=== PATIENT | female | born 1960 | race Caucasian/White ===

== ENCOUNTER 2022-08-22 10:05 | Inpatient (IN) | payer MEDICARE, MEDICAID, SELFPAY ==
--- NOTE | 2022-08-22 | ECG_ITS ---
Test Reason : MEDICAL CLEARANCE Blood Pressure : / mmHG Vent. Rate : 068 BPM Atrial Rate : 068 BPM P-R Int : 120 ms QRS Dur : 072 ms QT Int : 424 ms P-R-T Axes : 066 067 071 degrees QTc Int : 450 ms Normal sinus rhythm Normal ECG No previous ECGs available Referred By: Regina Beasley Electronically Signed By:ESTEBAN HAYES
[2022-08-22 10:11] VITALS: BP 138/86; PULSE 82; O2SAT 98
--- NOTE | 2022-08-22 10:23 | MHC.CARE ---
Pt was seen by Magalys Green in the community and is a bedsearch.
[2022-08-22 10:27] VITALS: BP 114/61; PULSE 80; RESP 17; TEMP 36.1; O2SAT 95; BMI 23.9
[2022-08-22 10:44] VITALS: BP 114/61; PULSE 80; RESP 17; TEMP 36.1; O2SAT 95
[2022-08-22 11:26] LABS: MANUAL DIFF FLAG NO
[2022-08-22 11:29] LABS: Basophils Absolute Auto 0.1 X10*3/uL (0.0-0.2); Basophils Percent Auto 0.8 % (0-2); Eosinophils Absolute Auto 0.1 X10*3/uL (0.0-0.4); Hemoglobin 13.5 g/dl (12.0-16.0); Imm Gran Abs Auto 0.03 X10*3/uL (0.00-0.03); Imm Gran Pct Auto 0.4 % (0.0-0.4); Lymphocytes Absolute Auto 2.3 X10*3/uL (1.2-4.9); Lymphocytes Percent Auto 27.9 % (20-40); Mean Corpuscular HGB Conc 33.8 g/dl (31.0-35.0); Mean Corpuscular Hemoglobin 30.5 pg (27.0-33.0); Mean Corpuscular Volume 90.3 fL (80.0-98.0); Mean Platelet Volume 11.2 fL (9.4-12.3); Monocytes Absolute Auto 0.7 X10*3/uL (0.1-1.2); Monocytes Percent Auto 7.9 % (2-11); Neutrophils Absolute Auto 5.2 x10*3/uL (2.0-8.3); Platelet Count 223 X10*3/uL (160-400); Red Blood Count 4.43 X10*6/uL (4.20-5.50); Red Cell Distribution Width 15.1 % (11.0-16.0); White Blood Count 8.4 X10*3/uL (4.8-10.8)
--- NOTE | 2022-08-22 11:45 | ED.PSYCH ---
HPI - Psych General Chief Complaint: Psychiatric Symptoms Stated Complaint: SI Time Seen by Provider: 08/22/22 10:51 Source: patient and EMS Mode of arrival: EMS Limitations: no limitations History of Present Illness HPI Narrative: 61 y/o female with history of multiple sclerosis and major depression presents to the ER via EMS from a homeless longterm with suicidal ideation. She reports recently she has been feeling suicidal because of her life. She is homeless with family in [place] who wants nothing to do with her. She has been off of psych meds and MS meds for a long while now because she ran out. She denies any current illicit drug use and admits to ETOH abuse intermittently. She denies hx withdrawal becuase she doesn't drink enough for that. She plans to overdose on pills even though she has a difficult time swallowing them at baseline. MD complaint: suicidal ideation and feels depressed Onset (ago): unknown Duration: intermittent and changing over time History of same: Yes Relieving factors: none Exacerbating factors: none Context: not taking psychiatric medications Associated psychiatric symptoms: depression and suicidal ideation Associated symptoms: denies other symptoms Treatments prior to arrival: placed on mental health hold If self harm: admits thoughts of self harm and has plan Details of plan: OD on pills Related Data Home Medications Medication Instructions Recorded Confirmed albuterol sulfate 90 mcg/actuation 2 puff inhalation Q6H PRN 08/22/22 08/22/22 aerosol inhaler Shortness Of Breath fluticasone propionate 230 2 puff inhalation BID 08/22/22 08/22/22 mcg-salmeterol 21 mcg/actuation HFA inhaler (Advair HFA) lamotrigine 200 mg tablet 1 tab PO BID 08/22/22 08/22/22 naproxen 500 mg tablet 1 tab PO Q12H PRN Pain (Scale 08/22/22 08/22/22 Score 1-3) omeprazole 20 mg capsule,delayed 1 cap PO DAILY@0630 08/22/22 08/22/22 release paroxetine HCl 40 mg tablet 1 tab PO DAILY 08/22/22 08/22/22 trazodone 150 mg tablet 1 tab PO DAILY 08/22/22 08/22/22 Allergies Allergy/AdvReac Type Severity Reaction Status Date / Time Unable to Assess Allergy Unverified 08/22/22 10:54 Review of Systems Review of Systems: Constitutional: No Fever, No Chills ENT/Mouth: No sore throat, No Rhinorrhea Cardiovascular: No Chest Pain, No SOB, No Orthopnea, No Edema Respiratory: No Cough, No Sputum, No Wheezing, No dyspnea Gastrointestinal: No Nausea, No Vomiting, No Diarrhea, No abdominal Pain Genitourinary: No Dysuria, No Urinary Frequency, No Hematuria Musculoskeletal: No joint pain, No Myalgias Skin: No Skin Lesions, No rash Neuro: No Weakness, No Numbness, No Dizziness, No Headache Psych: No Anxiety/Panic, + Depression, +SI, No HI, No AH, No VH Heme/Lymph: No Bruising, No Lymphadenopathy PMFSH Social History Social History Alcohol intake: current Alcohol intake frequency: 3 or more drinks per day Patient Tobacco Use Status: Current everyday Tobacco user Smoked in Last 30 Days: Yes Use of substances other than those prescribed or required for medical reasons: Yes Substance Use Type: Crack/Cocaine Substance Use Frequency: Daily Advance Directives: No Advance Directives Information Provided: No Patient : No Physical Exam Vital Signs: Vital Signs: Last Vital Signs Temp 97.0 F 08/22/22 10:44 Pulse 80 08/22/22 10:44 Resp 17 08/22/22 10:44 BP 114/61 08/22/22 10:44 Pulse Ox 95 08/22/22 10:44 O2 Del Method 08/22/22 10:44 BMI result Body Mass Index 23.9 Appearance: Alert. Oriented X3. No acute distress. Eyes: Pupils equal, round and reactive to light. ENT: Pharynx normal. Neck: Normal inspection. Neck supple. CVS: Normal heart rate and rhythm. Pulses normal. Respiratory: No respiratory distress. Breath sounds normal. Abdomen: Soft and nontender. +BS x4 Skin: Skin warm and dry. Normal skin color. Normal skin turgor. No rashes. Extremities: No lower extremity edema. Neuro/psych: Oriented X 3. No motor deficit. No sensory deficit. CN II -XII intact. Flat affect, depressed, suicidal. short responses in interview, guarded Course Course Course Narrative: 61 yo female presenting with worsening depression and suicidal ideation in the setting of medication noncompliance, homelessness and life stressors. She presents on a section 12 as an inpatient bedsearch from the community. Will get medical clearance and then plan to initiate bed search. Reevaluation(s) Reevaluation #1: Medical workup unremarkable. Medically cleared for admission. has a bed on M5. Will admit [facility] - Psych Medical Records Attestation: I reviewed the patient's medical records. Lab Data Attestation: I reviewed the patient's lab results. Result diagrams: 08/22/22 11:18 08/22/22 11:18 Labs: Lab Results 08/22/22 08/22/22 08/22/22 Range/Units 11:18 11:18 11:18 WBC 8.4 (4.8-10.8) X10*3/uL RBC 4.43 (4.20-5.50) X10*6/uL Hgb 13.5 (12.0-16.0) g/dl Hct 40.0 (37.0-47.0) % MCV 90.3 (80.0-98.0) fL MCH 30.5 (27.0-33.0) pg MCHC 33.8 (31.0-35.0) g/dl RDW 15.1 (11.0-16.0) % Plt Count 223 (160-400) X10*3/uL MPV 11.2 (9.4-12.3) fL Immature Gran % (Auto) 0.4 (0.0-0.4) % Neut % (Auto) 62.0 (45-73) % Lymph % (Auto) 27.9 (20-40) % Price % (Auto) 7.9 (2-11) % Eos % (Auto) 1.0 (0-4) % Baso % (Auto) 0.8 (0-2) % Lymph # (Auto) 2.3 (1.2-4.9) X10*3/uL Price # (Auto) 0.7 (0.1-1.2) X10*3/uL Eos # (Auto) 0.1 (0.0-0.4) X10*3/uL Baso # (Auto) 0.1 (0.0-0.2) X10*3/uL Abs Immat Gran (auto) 0.03 (0.00-0.03) X10*3/uL Absolute Neuts (auto) 5.2 (2.0-8.3) x10*3/uL Absolute Nucleated RBC 0.000 (0.0-0.012) X10*3/uL Nucleated RBC % (auto) 0.0 (0.0-0.2) /100WBC Sodium 143 (135-145) mmol/L Potassium 3.5 (3.3-5.1) mmol/L Chloride 111 H (96-108) mmol/L Carbon Dioxide 22 (22-29) mmol/L Anion Gap 14 (12-20) BUN 15 (9-16) mg/dL Creatinine 0.78 (0.5-1.4) mg/dL Estim Creat Clear Calc 64.2 Estimated GFR > 60 Random Glucose 90 (60-115) mg/dL Calcium 9.1 (8.4-10.2) mg/dL Magnesium 2.3 (1.6-2.6) mg/dL Total Bilirubin 0.2 (0.0-1.0) mg/dL Direct Bilirubin < 0.2 (0.0-0.5) mg/dL AST 22 (5-31) U/L ALT 19 (0-31) U/L Alkaline Phosphatase 86 (39-117) U/L Total Protein 5.9 L (6.5-8.0) g/dL Albumin 3.8 (3.5-5.0) g/dL Ethyl Alcohol < 10 mg/dL COVID-19 (MARII) Negative (Negative) COVID-19 Clin Com See Note ECG Data Attestation: I personally reviewed and interpreted this ECG as follows: ECG interpretation date: 08/22/22 ECG interpretation time: 14:38 Interpretation: normal sinus rhythm, HR 68 bpm, LA interval 120 ms, no st segment elevations or depressions. Discharge Plan Discharge Clinical Impression: Suicidal ideation Patient Disposition: Admitted As Inpatient
[2022-08-22 11:50] LABS: COVID-19 Test Negative (Negative); IDNOW Serial# 16C4AD1C
[2022-08-22 12:02] LABS: Alanine Aminotransferase 19 U/L (0-31); Albumin Level 3.8 g/dL (3.5-5.0); Alkaline Phosphatase 86 U/L (39-117); Anion Gap 14 (12-20); Aspartate Amino Transferase 22 U/L (5-31); Bilirubin Direct < 0.2 mg/dL (0.0-0.5); Bilirubin Total 0.2 mg/dL (0.0-1.0); Blood Urea Nitrogen 15 mg/dL (9-16); Calcium 9.1 mg/dL (8.4-10.2); Carbon Dioxide 22 mmol/L (22-29); Chloride 111 mmol/L (96-108); Creatinine Clr Calc Pharmacy 64.2; Estimated Glomerular Filt Rate > 60; Ethanol < 10 mg/dL; Glucose Random 90 mg/dL (60-115); Magnesium 2.3 mg/dL (1.6-2.6); Potassium 3.5 mmol/L (3.3-5.1); Sodium 143 mmol/L (135-145); Total Protein 5.9 g/dL (6.5-8.0)
--- NOTE | 2022-08-22 14:26 | PHA.MEDREC ---
Pharmacy Consult ? Medication Reconciliation Pharmacy has completed the medication reconciliation. Spoke with patient in the [facility]. Patient states she ran out of her medication and she is unsure when she last took them.
[2022-08-22 14:42] LABS: Appearance Urine Clear; Color Urine Yellow; Glucose Urine UA Negative (Negative); Leukocyte Esterase Urine Trace (Negative); Nitrite Urine Negative (Negative); Specific Gravity - Urine 1.015 (1.005-1.025); UMIC TRIGGER UACC YES; Urine Blood Negative (Negative); Urine Ketones Negative (Negative); Urine Protein Negative (Neg-Trace)
[2022-08-22 14:52] LABS: Bacteria Urine Trace (None Seen); Hyaline Casts Urine 0-2 /LPF (0-2); WBC Urine 0-5 /HPF (0-5)
[2022-08-22 14:54] LABS: Amphetamine Screen Urine POSITIVE (Not Detect); Barbiturates, Urine Not Detected (Not Detect); Benzodiazepines Screen Urine Not Detected (Not Detect); Cannabinoid Screen Urine POSITIVE (Not Detect); Cocaine Screen Urine POSITIVE (Not Detect); Fentanyl, urine Not Detected (Not Detect); Opiate Screen Urine Not Detected (Not Detect); Phencyclidine Screen Urine Not Detected (Not Detect)
--- NOTE | 2022-08-22 18:25 | PC.ADMIT ---
Pt is a 61 year old female who presents to from [facility] at approx 1600 on a cv status. Pt is covid - tox screen + for cocaine, THC, and amphetamines. EKG was normal sinus. Per chart review, pt has family hx of multiple sclerosis and major depression presents to the ER via EMS from a homeless [facility] with suicidal ideation. Pt was assessed by [facility] in the community. She reports recently she has been feeling suicidal because of her life. She is homeless with family in [place] who wants nothing to do with her. She has been off of psych meds and MS meds for a long while now because she ran out. She denies any current illict drug use and admits to ETOH abuse intermittently. She denies hx withdrawal because she doesn't drink enough. She plans to overdose on pills even though she has a difficult time swallowing them at baseline. During the admit, pt denied being in any withdraw. Pt denied all psych symptoms. Pt signed consent and legal forms. Pt ate dinner and has been in bed most of the shift. Pt reported that she is homeless. Provider notified and contacted for admission orders. Start safety plan and monitor for safety.
[2022-08-22] MEDS: lamoTRIgine 100 MG TABLET 200 MG PO (21:27)
[2022-08-22 21:32] VITALS: BP 138/68; PULSE 73
[2022-08-22] MEDS: NaPROXEN 500 MG TABLET PO (21:36)
[2022-08-23 06:00] VITALS: BP 128/71; PULSE 69; RESP 18; TEMP 36.9; O2SAT 98
[2022-08-23 07:41] LABS: Estimated Average Glucose 105 mg/dL; Hemoglobin A1c % 5.3 %
[2022-08-23 07:56] LABS: Alanine Aminotransferase 17 U/L (0-31); Albumin Level 3.6 g/dL (3.5-5.0); Alkaline Phosphatase 82 U/L (39-117); Aspartate Amino Transferase 19 U/L (5-31); Bilirubin Total 0.3 mg/dL (0.0-1.0); Blood Urea Nitrogen 26 mg/dL (9-16); Calcium 8.7 mg/dL (8.4-10.2); Cholesterol 170 mg/dL; Creatinine Clr Calc Pharmacy 63.4; Estimated Glomerular Filt Rate > 60; Glucose Fasting 107 mg/dL (60-99); HDL Cholesterol 74 mg/dL; LDL Cholesterol Calculated 85 mg/dl; Magnesium 2.2 mg/dL (1.6-2.6); Total Protein 5.6 g/dL (6.5-8.0); Triglycerides 55 mg/dL
[2022-08-23 08:06] LABS: Anion Gap 15 (12-20); Carbon Dioxide 22 mmol/L (22-29); Chloride 110 mmol/L (96-108); Potassium 4.5 mmol/L (3.3-5.1); Sodium 142 mmol/L (135-145)
[2022-08-23 08:08] LABS: Free T4 (Free Thyroxine) 0.88 ng/dL (0.71-1.85)
[2022-08-23] MEDS: Omeprazole 20 MG CAPSULE.DR PO (08:36)
[2022-08-23] MEDS: PARoxetine HCL 40 MG TABLET PO (08:36)
[2022-08-23] MEDS: lamoTRIgine 100 MG TABLET 200 MG PO ×2 (08:36→20:15)
[2022-08-23] MEDS: NaPROXEN 500 MG TABLET PO (09:16)
[2022-08-23 09:38] LABS: Folate 7.6 ng/mL (> or = 4.0); Vitamin B12 329 pg/mL (200-900)
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
--- NOTE | 2022-08-23 16:21 | HO.PSYCHPN ---
Subjective Subjective Date of Service: 08/23/22 Reason For Visit: depression w/ si Subjective Notes: Conditional Voluntary Interim History: Pt in bed, declines to meet, sleeping, not engaged today in milieu or her plan. I will see you when I am ready. Review of Systems Acute medical concerns: No Medical Review of Systems: unchanged Mental Status Exam Mental Status Exam Narrative: Pt is asleep, MSE based on GEOFF du Patient Appearance: Unkempt Patient Orientation: Person, Place and Time Level of Consciousness: Sedated Patient Behavior: Appropriate and Guarded Mood Description: Depressed Affect Description: Anxious Ability to Follow Directions: Good Speech Pattern: Clear Memory Description: Intact Hallucinations: None Delusions: Not Present Thought Process: Distracted Thought Content: positive for [place] Depressive Symptoms: Increased Anxiety, Difficulty Sleeping, Feelings of Worthlessness, Thoughts of /Suicide, Low Self Esteem and Difficulty Concentrating Judgement: Fair Diagnostics Vital Signs (24Hr): Vital Signs - 24 hr 08/22/22 21:32 08/23/22 06:00 Temperature 98.5 F Pulse Rate 73 69 Respiratory Rate 18 Blood Pressure 138/68 128/71 Pulse Oximetry 98 Oxygen Delivery Method Room Air BMI result Body Mass Index 23.9 Labs Results: 08/22/22 11:18 08/23/22 07:18 Labs: Laboratory Results - last 48 hr 08/22/22 08/22/22 08/22/22 11:18 11:18 11:18 WBC 8.4 RBC 4.43 Hgb 13.5 Hct 40.0 MCV 90.3 MCH 30.5 MCHC 33.8 RDW 15.1 Plt Count 223 MPV 11.2 Immature Gran % (Auto) 0.4 Neut % (Auto) 62.0 Lymph % (Auto) 27.9 [place] % (Auto) 7.9 Eos % (Auto) 1.0 Baso % (Auto) 0.8 Lymph # (Auto) 2.3 [place] # (Auto) 0.7 Eos # (Auto) 0.1 Baso # (Auto) 0.1 Abs Immat Gran (auto) 0.03 Absolute Neuts (auto) 5.2 Absolute Nucleated RBC 0.000 Nucleated RBC % (auto) 0.0 Sodium 143 Potassium 3.5 Chloride 111 H Carbon Dioxide 22 Anion Gap 14 BUN 15 Creatinine 0.78 Estim Creat Clear Calc 64.2 Estimated GFR > 60 Random Glucose 90 Fasting Glucose Estimat Average Glucose Hemoglobin A1c % Calcium 9.1 Magnesium 2.3 Total Bilirubin 0.2 Direct Bilirubin < 0.2 AST 22 ALT 19 Alkaline Phosphatase 86 Total Protein 5.9 L Albumin 3.8 Triglycerides Cholesterol LDL Cholesterol, Calc HDL Cholesterol Vitamin B12 Folate TSH Free T4 Urine Color Urine Appearance Urine pH Ur Specific [place] Urine Protein Urine Glucose (UA) Urine Ketones Urine Blood Urine Nitrite Ur Leukocyte Esterase Urine RBC Urine WBC Ur Squamous Epith Cells Urine Bacteria Hyaline Casts Urine Opiates Screen Urine Fentanyl Screen Ur Barbiturates Screen Ur Phencyclidine Scrn Ur Amphetamines Screen U Benzodiazepines Scrn Urine Cocaine Screen U Marijuana (THC) Screen Ethyl Alcohol < 10 COVID-19 (MARII) Negative COVID-19 Clin Com See Note 08/22/22 08/22/22 08/23/22 14:31 14:31 07:18 WBC RBC Hgb Hct MCV MCH MCHC RDW Plt Count MPV Immature Gran % (Auto) Neut % (Auto) Lymph % (Auto) [place] % (Auto) Eos % (Auto) Baso % (Auto) Lymph # (Auto) [place] # (Auto) Eos # (Auto) Baso # (Auto) Abs Immat Gran (auto) Absolute Neuts (auto) Absolute Nucleated RBC Nucleated RBC % (auto) Sodium 142 Potassium 4.5 D Chloride 110 H Carbon Dioxide 22 Anion Gap 15 BUN 26 H D Creatinine 0.79 Estim Creat Clear Calc 63.4 Estimated GFR > 60 Random Glucose Fasting Glucose 107 H Estimat Average Glucose Hemoglobin A1c % Calcium 8.7 Magnesium 2.2 Total Bilirubin 0.3 Direct Bilirubin AST 19 ALT 17 Alkaline Phosphatase 82 Total Protein 5.6 L Albumin 3.6 Triglycerides 55 Cholesterol 170 LDL Cholesterol, Calc 85 HDL Cholesterol 74 Vitamin B12 Folate TSH 1.40 Free T4 0.88 Urine Color Yellow Urine Appearance Clear Urine pH 6.0 Ur Specific [place] 1.015 Urine Protein Negative Urine Glucose (UA) Negative Urine Ketones Negative Urine Blood Negative Urine Nitrite Negative Ur Leukocyte Esterase Trace H Urine RBC 11-20 H Urine WBC 0-5 Ur Squamous Epith Cells 11-20 Urine Bacteria Trace Hyaline Casts 0-2 Urine Opiates Screen Not Detected Urine Fentanyl Screen Not Detected Ur Barbiturates Screen Not Detected Ur Phencyclidine Scrn Not Detected Ur Amphetamines Screen POSITIVE H U Benzodiazepines Scrn Not Detected Urine Cocaine Screen POSITIVE H U Marijuana (THC) Screen POSITIVE H Ethyl Alcohol COVID-19 (MARII) COVID-19 Clin Com 08/23/22 08/23/22 07:18 07:18 WBC RBC Hgb Hct MCV MCH MCHC RDW Plt Count MPV Immature Gran % (Auto) Neut % (Auto) Lymph % (Auto) [place] % (Auto) Eos % (Auto) Baso % (Auto) Lymph # (Auto) [place] # (Auto) Eos # (Auto) Baso # (Auto) Abs Immat Gran (auto) Absolute Neuts (auto) Absolute Nucleated RBC Nucleated RBC % (auto) Sodium Potassium Chloride Carbon Dioxide Anion Gap BUN Creatinine Estim Creat Clear Calc Estimated GFR Random Glucose Fasting Glucose Estimat Average Glucose 105 Hemoglobin A1c % 5.3 Calcium Magnesium Total Bilirubin Direct Bilirubin AST ALT Alkaline Phosphatase Total Protein Albumin Triglycerides Cholesterol LDL Cholesterol, Calc HDL Cholesterol Vitamin B12 329 Folate 7.6 TSH Free T4 Urine Color Urine Appearance Urine pH Ur Specific [place] Urine Protein Urine Glucose (UA) Urine Ketones Urine Blood Urine Nitrite Ur Leukocyte Esterase Urine RBC Urine WBC Ur Squamous Epith Cells Urine Bacteria Hyaline Casts Urine Opiates Screen Urine Fentanyl Screen Ur Barbiturates Screen Ur Phencyclidine Scrn Ur Amphetamines Screen U Benzodiazepines Scrn Urine Cocaine Screen U Marijuana (THC) Screen Ethyl Alcohol COVID-19 (MARII) COVID-19 [place] Medications Medications Current Medications Acetaminophen (Acetaminophen 325 Mg Tablet) 650 mg PO Q6H PRN PRN Reason: Headache/Pain Mild Scale (1-3) Al Hydroxide/Mg Hydroxide (Magnesium Hydrox/Alum Hydrox 30 Ml Oral.Susp) 30 ml PO Q6H PRN PRN Reason: Heartburn/Nausea Albuterol Sulfate (Albuterol Sulfate 90 Mcg 8 Gm Inhaler) 2 puff INHALE Q6H PRN PRN Reason: Shortness Of Breath Fluticasone/Vilanterol (Fluticasone/Vilanterol 200/25 Blst.W.Dev) 1 puff INHALE DAILY [facility] Last Admin: 08/23/22 11:12 Dose: Not Given Hydroxyzine HCl (Hydroxyzine Hcl 25 Mg Tablet) 25 mg PO Q6H PRN PRN Reason: Anxiety Lamotrigine (Lamotrigine 100 Mg Tablet) 200 mg PO BID [facility] Last Admin: 08/23/22 08:36 Dose: 200 mg Magnesium Hydroxide (Milk Of Magnesia 30 Ml Oral.Susp) 30 ml PO DAILY PRN PRN Reason: Constipation Naproxen (Naproxen 500 Mg Tablet) 500 mg PO Q12H PRN PRN Reason: Pain (Scale Score 1-3) Last Admin: 08/23/22 09:16 Dose: 500 mg Omeprazole (Omeprazole 20 Mg Capsule.Dr) 20 mg PO DAILY@0630 [facility] Last Admin: 08/23/22 08:36 Dose: 20 mg Paroxetine HCl (Paroxetine Hcl 40 Mg Tablet) 40 mg PO DAILY [facility] Last Admin: 08/23/22 08:36 Dose: 40 mg Trazodone HCl (Trazodone Hcl 50 Mg Tablet) 150 mg PO DAILY [facility] Allergies Allergies Allergy/AdvReac Type Severity Reaction Status Date / Time sulfamethoxazole Allergy Anaphylaxis Verified 08/23/22 09:40 [From Bactrim] trimethoprim [From Bactrim] Allergy Anaphylaxis Verified 08/23/22 09:40 Assessment & Plan Assessment & Plan (1) JOSE (generalized anxiety disorder): Status: Acute Code(s): F41.1 - Generalized anxiety disorder (2) MDD (major depressive disorder), recurrent episode, moderate: Status: Acute Code(s): F33.1 - Major depressive disorder, recurrent, moderate (3) Crack cocaine use: Status: Acute Code(s): F14.90 - Cocaine use, unspecified, uncomplicated Plan 61 y/o female with history of multiple sclerosis and MDD recurrent. Pt presented to [facility] on 08/22/2022 from a homeless skilled nursing ([facility]) with SI with plan to overdose. Precipitating fx include that her family in [place] who wants nothing to do with her. She has been non-adherent on some of her psych meds (has been taking lamictal) and MS meds due to running out. Staff at her skilled nursing had found crack pipes on her and she was not allowed on the property, says this belonged to a friend, however per team pt has been using crack cocaine daily. Utox positive for amphetamines, cocaine, and cannabis. Denies alcohol abuse or withdrawal.?In belongings pt found to have substance suspicious for meth. 08/23/22- Refusing eval today. In bed, napping, no involvement in milieu. Plan: Re-start paxil, trazodone, continue lamictal. Continue assessment, engagement. Refer to addiction services. Q15 min safety checks, CV Monitor response to medications. Monitor for safety in the milieu. Discharge on stabilization. Patient seen. Chart reviewed. Discussed with team. Obtain collateral contact info?as needed I spent minutes with the patient and/or on the patient floor today, greater than?50% of which was spent counseling/coordinating care. Informed Consent: does not understand Reason for contiued inpatient stay Substantial Risk for: harm to self, inability to function and rapid decompensation
[2022-08-23 18:00] VITALS: BP 142/74; PULSE 66; RESP 16; TEMP 36.4; O2SAT 97
[2022-08-23] MEDS: traZODone HCL 50 MG TABLET 150 MG PO (20:15)
[2022-08-24 06:00] VITALS: BP 129/70; PULSE 73; RESP 16; TEMP 36.7; O2SAT 95
[2022-08-24] MEDS: Omeprazole 20 MG CAPSULE.DR PO (08:41)
[2022-08-24] MEDS: lamoTRIgine 100 MG TABLET 200 MG PO ×2 (08:41→19:19)
[2022-08-24] MEDS: PARoxetine HCL 40 MG TABLET PO (08:41)
[2022-08-24] MEDS: Fluticasone/Vilanterol 200/25 BLST.W.DEV 1 PUFF INHALE (08:42)
--- NOTE | 2022-08-24 16:45 | P.PNPSI_ITS ---
Subjective Subjective Date of Service: 08/24/22 Reason For Visit: depression w/ si Subjective Notes: Conditional Voluntary Interim History: Denies current concerns. Spending much time in bed. Unwilling to meet. I am OK, just tired. Medication Compliance: Yes Side effects from medications: No Attending Groups: No Review of Systems Acute medical concerns: No Medical Review of Systems: unchanged Mental Status Exam Mental Status Exam Narrative: Pt is asleep, MSE based on GEOFF du Patient Appearance: Unkempt Patient Orientation: Person, Place and Time Level of Consciousness: Sedated Patient Behavior: Appropriate Mood Description: Depressed Affect Description: Flat Ability to Follow Directions: Good Speech Pattern: Clear and Spontaneous Speech Memory Description: Intact Hallucinations: None Delusions: Not Present Thought Process: Distracted Thought Content: positive for [place] Depressive Symptoms: Increased Anxiety, Sleeping More Than Usual and Thoughts of /Suicide Judgement: Fair Diagnostics Vital Signs (24Hr): Vital Signs - 24 hr 08/23/22 18:00 08/24/22 06:00 Temperature 97.6 F 98.0 F Pulse Rate 66 73 Respiratory Rate 16 16 Blood Pressure 142/74 H 129/70 Pulse Oximetry 97 95 Oxygen Delivery Method Room Air Room Air BMI result Body Mass Index 23.9 Labs Results: 08/22/22 11:18 08/23/22 07:18 Labs: Laboratory Results - last 48 hr 08/23/22 08/23/22 08/23/22 07:18 07:18 07:18 Sodium 142 Potassium 4.5 D Chloride 110 H Carbon Dioxide 22 Anion Gap 15 BUN 26 H D Creatinine 0.79 Estim Creat Clear Calc 63.4 Estimated GFR > 60 Fasting Glucose 107 H Estimat Average Glucose 105 Hemoglobin A1c % 5.3 Calcium 8.7 Magnesium 2.2 Total Bilirubin 0.3 AST 19 ALT 17 Alkaline Phosphatase 82 Total Protein 5.6 L Albumin 3.6 Triglycerides 55 Cholesterol 170 LDL Cholesterol, Calc 85 HDL Cholesterol 74 Vitamin B12 329 Folate 7.6 TSH 1.40 Free T4 0.88 Medications Medications Current Medications Acetaminophen (Acetaminophen 325 Mg Tablet) 650 mg PO Q6H PRN PRN Reason: Headache/Pain Mild Scale (1-3) Al Hydroxide/Mg Hydroxide (Magnesium Hydrox/Alum Hydrox 30 Ml Oral.Susp) 30 ml PO Q6H PRN PRN Reason: Heartburn/Nausea Albuterol Sulfate (Albuterol Sulfate 90 Mcg 8 Gm Inhaler) 2 puff INHALE Q6H PRN PRN Reason: Shortness Of Breath Fluticasone/Vilanterol (Fluticasone/Vilanterol 200/25 Blst.W.Dev) 1 puff INHALE DAILY [facility] Last Admin: 08/24/22 08:42 Dose: 1 puff Hydroxyzine HCl (Hydroxyzine Hcl 25 Mg Tablet) 25 mg PO Q6H PRN PRN Reason: Anxiety Lamotrigine (Lamotrigine 100 Mg Tablet) 200 mg PO BID [facility] Last Admin: 08/24/22 08:41 Dose: 200 mg Magnesium Hydroxide (Milk Of Magnesia 30 Ml Oral.Susp) 30 ml PO DAILY PRN PRN Reason: Constipation Naproxen (Naproxen 500 Mg Tablet) 500 mg PO Q12H PRN PRN Reason: Pain (Scale Score 1-3) Last Admin: 08/23/22 09:16 Dose: 500 mg Omeprazole (Omeprazole 20 Mg Capsule.Dr) 20 mg PO DAILY@0630 [facility] Last Admin: 08/24/22 08:41 Dose: 20 mg Paroxetine HCl (Paroxetine Hcl 40 Mg Tablet) 40 mg PO DAILY [facility] Last Admin: 08/24/22 08:41 Dose: 40 mg Trazodone HCl (Trazodone Hcl 50 Mg Tablet) 150 mg PO DAILY [facility] Last Admin: 08/24/22 09:29 Dose: Not Given Allergies Allergies Allergy/AdvReac Type Severity Reaction Status Date / Time sulfamethoxazole Allergy Anaphylaxis Verified 08/23/22 09:40 [From Bactrim] trimethoprim [From Bactrim] Allergy Anaphylaxis Verified 08/23/22 09:40 Assessment & Plan Assessment & Plan (1) JOSE (generalized anxiety disorder): Status: Acute Code(s): F41.1 - Generalized anxiety disorder (2) MDD (major depressive disorder), recurrent episode, moderate: Status: Acute Code(s): F33.1 - Major depressive disorder, recurrent, moderate (3) Crack cocaine use: Status: Acute Code(s): F14.90 - Cocaine use, unspecified, uncomplicated Plan 61 y/o female with history of multiple sclerosis and MDD recurrent. Pt presented to [facility] on 08/22/2022 from a homeless chcf ([facility]) with SI with plan to overdose. Precipitating fx include that her family in [place] who wants nothing to do with her. She has been non-adherent on some of her psych meds (has been taking lamictal) and MS meds due to running out. Staff at her chcf had found crack pipes on her and she was not allowed on the property, says this belonged to a friend, however per team pt has been using crack cocaine daily. Utox positive for amphetamines, cocaine, and cannabis. Denies alcohol abuse or withdrawal.?In belongings pt found to have substance suspicious for meth. 08/23/22- Refusing eval today. In bed, napping, no involvement in milieu. 08/24/22-Declines to meet. In bed. Plan: Re-start paxil, trazodone, continue lamictal. Continue assessment, engagement. Refer to addiction services. Q15 min safety checks, CV Monitor response to medications. Monitor for safety in the milieu. Discharge on stabilization. Patient seen. Chart reviewed. Discussed with team. Obtain collateral contact info?as needed I spent minutes with the patient and/or on the patient floor today, greater than?50% of which was spent counseling/coordinating care. Patient educated on: medication risk/benefits and substance abuse Informed Consent: further education needed Reason for contiued inpatient stay Substantial Risk for: inability to function and rapid decompensation
[2022-08-24 17:29] VITALS: BP 134/62; PULSE 68; RESP 16; TEMP 36.4; O2SAT 96
[2022-08-25 06:00] VITALS: BP 132/67; PULSE 65; RESP 18; TEMP 36.4; O2SAT 98
[2022-08-25] MEDS: Omeprazole 20 MG CAPSULE.DR PO (09:09)
[2022-08-25] MEDS: lamoTRIgine 100 MG TABLET 200 MG PO ×2 (09:09→20:05)
[2022-08-25] MEDS: PARoxetine HCL 40 MG TABLET PO (09:10)
[2022-08-25] MEDS: Fluticasone/Vilanterol 200/25 BLST.W.DEV 1 PUFF INHALE (09:23)
[2022-08-25 18:00] VITALS: BP 156/73; PULSE 67; RESP 18; TEMP 36.3; O2SAT 97
--- NOTE | 2022-08-25 18:53 | HO.PSYCHPN ---
Subjective Subjective Date of Service: 08/25/22 Reason For Visit: depression w/ si Subjective Notes: Conditional Voluntary Interim History: More talkative, remains in bed. Denies SI, reports feeling improved with sleep. Continues to avoid full interview to discuss how we may assist her. Medication Compliance: Yes Side effects from medications: No Attending Groups: No Review of Systems Medical Review of Systems: unchanged Mental Status Exam Mental Status Exam Narrative: Pt is asleep, MSE based on GEOFF du Patient Appearance: Unkempt Patient Orientation: Person, Place and Time Level of Consciousness: Sedated Patient Behavior: Appropriate Mood Description: Depressed Affect Description: Flat Ability to Follow Directions: Good Speech Pattern: Clear and Spontaneous Speech Memory Description: Intact Hallucinations: None Delusions: Not Present Thought Process: Distracted Thought Content: positive for [place] Depressive Symptoms: Increased Anxiety, Sleeping More Than Usual and Thoughts of /Suicide Judgement: Fair Diagnostics Vital Signs (24Hr): Vital Signs - 24 hr 08/25/22 06:00 08/25/22 18:00 Temperature 97.6 F 97.4 F Pulse Rate 65 67 Respiratory Rate 18 18 Blood Pressure 132/67 156/73 H Pulse Oximetry 98 97 Oxygen Delivery Method Room Air Room Air BMI result Body Mass Index 23.9 Labs Results: 08/22/22 11:18 08/23/22 07:18 Medications Medications Current Medications Acetaminophen (Acetaminophen 325 Mg Tablet) 650 mg PO Q6H PRN PRN Reason: Headache/Pain Mild Scale (1-3) Al Hydroxide/Mg Hydroxide (Magnesium Hydrox/Alum Hydrox 30 Ml Oral.Susp) 30 ml PO Q6H PRN PRN Reason: Heartburn/Nausea Albuterol Sulfate (Albuterol Sulfate 90 Mcg 8 Gm Inhaler) 2 puff INHALE Q6H PRN PRN Reason: Shortness Of Breath Fluticasone/Vilanterol (Fluticasone/Vilanterol 200/25 Blst.W.Dev) 1 puff INHALE DAILY [facility] Last Admin: 08/25/22 09:23 Dose: 1 puff Hydroxyzine HCl (Hydroxyzine Hcl 25 Mg Tablet) 25 mg PO Q6H PRN PRN Reason: Anxiety Lamotrigine (Lamotrigine 100 Mg Tablet) 200 mg PO BID [facility] Last Admin: 08/25/22 09:09 Dose: 200 mg Magnesium Hydroxide (Milk Of Magnesia 30 Ml Oral.Susp) 30 ml PO DAILY PRN PRN Reason: Constipation Naproxen (Naproxen 500 Mg Tablet) 500 mg PO Q12H PRN PRN Reason: Pain (Scale Score 1-3) Last Admin: 08/23/22 09:16 Dose: 500 mg Omeprazole (Omeprazole 20 Mg Capsule.Dr) 20 mg PO DAILY@0630 [facility] Last Admin: 08/25/22 09:09 Dose: 20 mg Paroxetine HCl (Paroxetine Hcl 40 Mg Tablet) 40 mg PO DAILY [facility] Last Admin: 08/25/22 09:10 Dose: 40 mg Trazodone HCl (Trazodone Hcl 50 Mg Tablet) 150 mg PO DAILY [facility] Last Admin: 08/25/22 09:13 Dose: Not Given Allergies Allergies Allergy/AdvReac Type Severity Reaction Status Date / Time sulfamethoxazole Allergy Anaphylaxis Verified 08/23/22 09:40 [From Bactrim] trimethoprim [From Bactrim] Allergy Anaphylaxis Verified 08/23/22 09:40 Assessment & Plan Assessment & Plan (1) JOSE (generalized anxiety disorder): Status: Acute Code(s): F41.1 - Generalized anxiety disorder (2) MDD (major depressive disorder), recurrent episode, moderate: Status: Acute Code(s): F33.1 - Major depressive disorder, recurrent, moderate (3) Crack cocaine use: Status: Acute Code(s): F14.90 - Cocaine use, unspecified, uncomplicated Plan 61 y/o female with history of multiple sclerosis and MDD recurrent. Pt [place] [facility] [place] 08/22/[place]22 from a homeless detention ([facility]) with SI with plan to overdose. Precipitating fx include that her family in [place] who wants nothing to do with her. She has been non-adherent on some of her psych meds (has been taking lamictal) and MS meds due to running out. Staff at her detention had found crack pipes on her and she was not allowed on the property, says this belonged to a friend, however per team pt has been using crack cocaine daily. Utox positive for amphetamines, cocaine, and cannabis. Denies alcohol abuse or withdrawal.?In belongings pt found to have substance suspicious for meth. 08/23/22- Refusing eval today. In bed, napping, no involvement in milieu. 08/25/22- Continue plan-[facility] Plan: Re-start paxil, trazodone, continue lamictal. Continue assessment, engagement. Refer to addiction services. Q15 min safety checks, CV Monitor response to medications. Monitor for safety in the milieu. Discharge on stabilization. Patient seen. Chart reviewed. Discussed with team. Obtain collateral contact info?as needed I spent minutes with the patient and/or on the patient floor today, greater than?50% of which was spent counseling/coordinating care. Patient educated on: medication risk/benefits and therapeutic strategies Informed Consent: further education needed Reason for contiued inpatient stay Substantial Risk for: harm to self, inability to function and rapid decompensation
[2022-08-25] MEDS: QUEtiapine Fumarate 50 MG TABLET PO (21:38)
[2022-08-26] MEDS: Omeprazole 20 MG CAPSULE.DR PO (06:28)
[2022-08-26] MEDS: Fluticasone/Vilanterol 200/25 BLST.W.DEV 1 PUFF INHALE (08:58)
[2022-08-26] MEDS: lamoTRIgine 100 MG TABLET 200 MG PO ×2 (08:59→19:35)
[2022-08-26] MEDS: PARoxetine HCL 40 MG TABLET PO (08:59)
[2022-08-26 09:52] VITALS: BP 121/58; PULSE 75; RESP 18; TEMP 36.4; O2SAT 96
--- NOTE | 2022-08-26 17:15 | HO.PSYCHPN ---
Subjective Subjective Date of Service: 08/26/22 Reason For Visit: depression w/ si Subjective Notes: Garcia Warning and Conditional Voluntary Interim History: I spoke with pt and I spoke with her team. She reports she feels depressed still, asks for Seroquel 50 mg BID and prefers it to be scheduled. Denies SI, says she feels safe. Says seroquel works better than trazodone for sleep but she wants to stay on both as she feels the combo is helping. Asks for gabapentin 100 mg TID to be restored, this is a low dose and pt reports it is helpful for anxiety and pain. Pt then asks for something for anxiety but encouraged to see how gabapentin and Seroquel work first. Medication Compliance: Yes Side effects from medications: No Attending Groups: No Review of Systems Acute medical concerns: No Medical Review of Systems: unchanged Mental Status Exam Mental Status Exam Narrative: Pt is asleep, MSE based on GEOFF du Patient Appearance: Unkempt Patient Orientation: Person, Place and Time Level of Consciousness: Sedated Patient Behavior: Appropriate Mood Description: Depressed Affect Description: Flat Ability to Follow Directions: Good Speech Pattern: Clear and Spontaneous Speech Memory Description: Intact Hallucinations: None Delusions: Not Present Thought Process: Distracted Thought Content: positive for [place] Depressive Symptoms: Increased Anxiety, Sleeping More Than Usual and Thoughts of /Suicide Judgement: Fair Diagnostics Vital Signs (24Hr): Vital Signs - 24 hr 08/25/22 18:00 08/26/22 09:52 Temperature 97.4 F 97.6 F Pulse Rate 67 75 Respiratory Rate 18 18 Blood Pressure 156/73 H 121/58 L Pulse Oximetry 97 96 Oxygen Delivery Method Room Air Room Air BMI result Body Mass Index 23.9 Labs Results: 08/22/22 11:18 08/23/22 07:18 Medications Medications Current Medications Acetaminophen (Acetaminophen 325 Mg Tablet) 650 mg PO Q6H PRN PRN Reason: Headache/Pain Mild Scale (1-3) Al Hydroxide/Mg Hydroxide (Magnesium Hydrox/Alum Hydrox 30 Ml Oral.Susp) 30 ml PO Q6H PRN PRN Reason: Heartburn/Nausea Albuterol Sulfate (Albuterol Sulfate 90 Mcg 8 Gm Inhaler) 2 puff INHALE Q6H PRN PRN Reason: Shortness Of Breath Fluticasone/Vilanterol (Fluticasone/Vilanterol 200/25 Blst.W.Dev) 1 puff INHALE DAILY [facility] Last Admin: 08/26/22 08:58 Dose: 1 puff Hydroxyzine HCl (Hydroxyzine Hcl 25 Mg Tablet) 25 mg PO Q6H PRN PRN Reason: Anxiety Lamotrigine (Lamotrigine 100 Mg Tablet) 200 mg PO BID [facility] Last Admin: 08/26/22 08:59 Dose: 200 mg Magnesium Hydroxide (Milk Of Magnesia 30 Ml Oral.Susp) 30 ml PO DAILY PRN PRN Reason: Constipation Melatonin (Melatonin 3 Mg Tablet) 6 mg PO BEDTIME PRN PRN Reason: Insomnia Naproxen (Naproxen 500 Mg Tablet) 500 mg PO Q12H PRN PRN Reason: Pain (Scale Score 1-3) Last Admin: 08/23/22 09:16 Dose: 500 mg Omeprazole (Omeprazole 20 Mg Capsule.Dr) 20 mg PO DAILY@0630 [facility] Last Admin: 08/26/22 06:28 Dose: 20 mg Paroxetine HCl (Paroxetine Hcl 40 Mg Tablet) 40 mg PO DAILY [facility] Last Admin: 08/26/22 08:59 Dose: 40 mg Quetiapine Fumarate (Quetiapine Fumarate 50 Mg Tablet) 50 mg PO BEDTIME PRN PRN Reason: Insomnia Last Admin: 08/25/22 21:38 Dose: 50 mg Trazodone HCl (Trazodone Hcl 50 Mg Tablet) 150 mg PO DAILY [facility] Last Admin: 08/26/22 09:11 Dose: Not Given Allergies Allergies Allergy/AdvReac Type Severity Reaction Status Date / Time sulfamethoxazole Allergy Anaphylaxis Verified 08/23/22 09:40 [From Bactrim] trimethoprim [From Bactrim] Allergy Anaphylaxis Verified 08/23/22 09:40 Assessment & Plan Assessment & Plan (1) JOSE (generalized anxiety disorder): Status: Acute Code(s): F41.1 - Generalized anxiety disorder (2) MDD (major depressive disorder), recurrent episode, moderate: Status: Acute Code(s): F33.1 - Major depressive disorder, recurrent, moderate (3) Crack cocaine use: Status: Acute Code(s): F14.90 - Cocaine use, unspecified, uncomplicated Plan 61 y/o female with history of multiple sclerosis and MDD recurrent. Pt presented to [facility] on 08/22/2022 from a homeless residential ([facility]) with SI with plan to overdose. Precipitating fx include that her family in [place] who wants nothing to do with her. She has been non-adherent on some of her psych meds (has been taking lamictal) and MS meds due to running out. Staff at her residential had found crack pipes on her and she was not allowed on the property, says this belonged to a friend, however per team pt has been using crack cocaine daily. Utox positive for amphetamines, cocaine, and cannabis. Denies alcohol abuse or withdrawal.?In belongings pt found to have substance suspicious for meth. 08/23/22- Refusing eval today. In bed, napping, no involvement in milieu. 08/25/22- Continue [facility] 08/26/22: Pt is awake and alert but isolative. Asks for gabapentin to be restored at 100 mg TID and for seroquel to be increased to 50 mg BID scheduled for anxiety. Plan: Re-start paxil, trazodone, continue lamictal. Continue assessment, engagement. Refer to addiction services. Q15 min safety checks, CV Monitor response to medications. Monitor for safety in the milieu. Discharge on stabilization. Patient seen. Chart reviewed. Discussed with team. Obtain collateral contact info?as needed I spent minutes with the patient and/or on the patient floor today, greater than?50% of which was spent counseling/coordinating care. Patient educated on: medication risk/benefits Reason for contiued inpatient stay Substantial Risk for: med/psych decompensation
[2022-08-26 19:14] VITALS: BP 122/56; PULSE 82
[2022-08-26] MEDS: QUEtiapine Fumarate 50 MG TABLET PO (19:36)
[2022-08-26] MEDS: Gabapentin 100 MG CAPSULE PO (19:36)
[2022-08-27 06:00] VITALS: BP 122/70; PULSE 60; RESP 16; TEMP 36.8; O2SAT 97
[2022-08-27] MEDS: Fluticasone/Vilanterol 200/25 BLST.W.DEV 1 PUFF INHALE (08:38)
[2022-08-27] MEDS: PARoxetine HCL 40 MG TABLET PO (08:40)
[2022-08-27] MEDS: Gabapentin 100 MG CAPSULE PO ×2 (08:40→14:17)
[2022-08-27] MEDS: lamoTRIgine 100 MG TABLET 200 MG PO ×2 (08:40→21:24)
[2022-08-27] MEDS: Omeprazole 20 MG CAPSULE.DR PO (08:40)
[2022-08-27] MEDS: QUEtiapine Fumarate 50 MG TABLET PO ×2 (08:40→21:24)
[2022-08-27] MEDS: NaPROXEN 500 MG TABLET PO ×2 (16:34→21:24)
--- NOTE | 2022-08-27 17:27 | P.PNPSI_ITS ---
Subjective Subjective Date of Service: 08/27/22 Reason For Visit: depression w/ si Subjective Notes: Conditional Voluntary Healthcare Proxy: No Guardianship: No Medical Problems Affecting Mental Status: No Interim History: Met with pt and Josh PARADA. Reports estrangement from family, restriction from [facility] for ~3 months due to verbalization of SI and having a suspected crack pipe. Pt is homeless currently-sister's home is too small, mother is selling her home. Reports SI was a figure of speech that the fci took seriously. Reports no SI, no perceptual alterations. Full medication review with changes. Pt agreeable to further addiction treatment if she will be allowed to smoke. Medication Compliance: Yes Side effects from medications: No Attending Groups: No Review of Systems Acute medical concerns: No Medical Review of Systems: unchanged Mental Status Exam Mental Status Exam Patient Appearance: Appropriate Patient Orientation: Person, Place, Time and Situation Level of Consciousness: Alert Patient Behavior: Talkative, Cooperative and Good Eye Contact Mood Description: Apprehensive Affect Description: Flat Patient Cognition Impaired: No Ability to Follow Directions: Good Speech Pattern: Spontaneous Speech Memory Description: Intact Hallucinations: None Delusions: Not Present Perceptual Disturbances: Derealization Thought Process: Rumination Thought Content: positive for Suicidal Ideation (denies) Depressive Symptoms: Increased Anxiety and Hopelessness Judgement: Good Diagnostics Vital Signs (24Hr): Vital Signs - 24 hr 08/26/22 19:14 08/27/22 06:00 Temperature 98.3 F Pulse Rate 82 60 Respiratory Rate 16 Blood Pressure 122/56 L 122/70 Pulse Oximetry 97 BMI result Body Mass Index 23.9 Labs Results: 08/22/22 11:18 08/23/22 07:18 Medications Medications Current Medications Al Hydroxide/Mg Hydroxide (Magnesium Hydrox/Alum Hydrox 30 Ml Oral.Susp) 30 ml PO Q6H PRN PRN Reason: Heartburn/Nausea Albuterol Sulfate (Albuterol Sulfate 90 Mcg 8 Gm Inhaler) 2 puff INHALE Q6H PRN PRN Reason: Shortness Of Breath Fluticasone/Vilanterol (Fluticasone/Vilanterol 200/25 Blst.W.Dev) 1 puff INHALE DAILY [facility] Last Admin: 08/27/22 08:38 Dose: 1 puff Gabapentin (Gabapentin 100 Mg Capsule) 200 mg PO TID [facility] Hydroxyzine HCl (Hydroxyzine Hcl 25 Mg Tablet) 25 mg PO Q6H PRN PRN Reason: Anxiety Lamotrigine (Lamotrigine 100 Mg Tablet) 200 mg PO BID [facility] Last Admin: 08/27/22 08:40 Dose: 200 mg Magnesium Hydroxide (Milk Of Magnesia 30 Ml Oral.Susp) 30 ml PO DAILY PRN PRN Reason: Constipation Melatonin (Melatonin 3 Mg Tablet) 6 mg PO BEDTIME PRN PRN Reason: Insomnia Mirtazapine (Mirtazapine 7.5 Mg Tablet) 7.5 mg PO BEDTIME [facility] Naproxen (Naproxen 500 Mg Tablet) 500 mg PO BID [facility] Last Admin: 08/27/22 16:34 Dose: 500 mg Omeprazole (Omeprazole 20 Mg Capsule.Dr) 20 mg PO DAILY@0630 [facility] Last Admin: 08/27/22 08:40 Dose: 20 mg Paroxetine HCl (Paroxetine Hcl 40 Mg Tablet) 40 mg PO DAILY [facility] Last Admin: 08/27/22 08:40 Dose: 40 mg Quetiapine Fumarate (Quetiapine Fumarate 50 Mg Tablet) 50 mg PO BID [facility] Last Admin: 08/27/22 08:40 Dose: 50 mg Allergies Allergies Allergy/AdvReac Type Severity Reaction Status Date / Time sulfamethoxazole Allergy Anaphylaxis Verified 08/23/22 09:40 [From Bactrim] trimethoprim [From Bactrim] Allergy Anaphylaxis Verified 08/23/22 09:40 Assessment & Plan Assessment & Plan (1) JOSE (generalized anxiety disorder): Status: Acute Code(s): F41.1 - Generalized anxiety disorder (2) MDD (major depressive disorder), recurrent episode, moderate: Status: Acute Code(s): F33.1 - Major depressive disorder, recurrent, moderate (3) Crack cocaine use: Status: Acute Code(s): F14.90 - Cocaine use, unspecified, uncomplicated Plan 61 y/o female with history of multiple sclerosis and MDD recurrent. Pt presented to [facility] ED on 08/22/2022 from a homeless fci ([facility]) with SI with plan to overdose. Precipitating fx include that her family in [place] who wants nothing to do with her. She has been non-adherent on some of her psych meds (has been taking lamictal) and MS meds due to running out. Staff at her fci had found crack pipes on her and she was not allowed on the property, says this belonged to a friend, however per team pt has been using crack cocaine daily. Utox po sitive for amphetamines, cocaine, and cannabis. Denies alcohol abuse or withdrawal.?In belongings pt found to have substance suspicious for meth. 08/23/22- Refusing eval today. In bed, napping, no involvement in milieu. 08/25/22- Continue [facility] 08/26/22: Pt is awake and alert but isolative. Asks for gabapentin to be restored at 100 mg TID and for seroquel to be increased to 50 mg BID scheduled for anxiety. 08/27/22: Topamax 25 mg daily Increase Gabapentin to 200 mg tid Discontinue Trazodone Remeron 7.5 mg HS B12 IM monthly Change Naprosyn to scheduled Plan: Re-start paxil, trazodone, continue lamictal. Continue assessment, engagement. Refer to addiction services. Q15 min safety checks, CV Monitor response to medications. Monitor for safety in the milieu. Discharge on stabilization. Patient seen. Chart reviewed. Discussed with team. Obtain collateral contact info?as needed I spent minutes with the patient and/or on the patient floor today, greater than?50% of which was spent counseling/coordinating care. Patient educated on: medication risk/benefits Informed Consent: understands and further education needed Reason for contiued inpatient stay Substantial Risk for: med/psych decompensation
[2022-08-27 18:00] VITALS: BP 138/65; PULSE 71; RESP 18; TEMP 35.9; O2SAT 96
[2022-08-27] MEDS: Gabapentin 100 MG CAPSULE 200 MG PO (21:24)
[2022-08-27] MEDS: Mirtazapine 7.5 MG TABLET PO (21:24)
[2022-08-27] MEDS: Cyanocobalamin (Vitamin B-12) 1,000 MCG/ML VIAL 1000 MCG IM (21:26)
[2022-08-28 07:00] VITALS: BMI 25.4
[2022-08-28 09:00] VITALS: BP 137/71; PULSE 68; RESP 17; TEMP 36.2; O2SAT 97
[2022-08-28] MEDS: Fluticasone/Vilanterol 200/25 BLST.W.DEV 1 PUFF INHALE (09:33)
[2022-08-28] MEDS: Gabapentin 100 MG CAPSULE 200 MG PO ×3 (09:34→20:13)
[2022-08-28] MEDS: lamoTRIgine 100 MG TABLET 200 MG PO ×2 (09:34→20:13)
[2022-08-28] MEDS: PARoxetine HCL 40 MG TABLET PO (09:35)
[2022-08-28] MEDS: QUEtiapine Fumarate 50 MG TABLET PO ×2 (09:35→20:13)
[2022-08-28] MEDS: NaPROXEN 500 MG TABLET PO ×2 (09:36→20:13)
[2022-08-28] MEDS: Topiramate 25 MG TABLET PO (09:36)
[2022-08-28] MEDS: Omeprazole 20 MG CAPSULE.DR PO (09:36)
--- NOTE | 2022-08-28 13:54 | HO.PSYCHPN ---
Subjective Subjective Date of Service: 08/28/22 Reason For Visit: depression w/ si Subjective Notes: Conditional Voluntary Healthcare Proxy: No Guardianship: No Medical Problems Affecting Mental Status: No Interim History: Visable and active in milieu today. Remains with reports of anxiety and depression. Difficulty interacting with people she reports, however appears to interact well and others enjoy her presence. Tolerating regime of medications, continues to be ambivalent regarding where to reside upon discharge. Medication Compliance: Yes Side effects from medications: No Attending Groups: Yes Review of Systems Acute medical concerns: No Medical Review of Systems: unchanged Mental Status Exam Mental Status Exam Patient Appearance: Appropriate Patient Orientation: Person, Place, Time and Situation Level of Consciousness: Alert Patient Behavior: Talkative, Cooperative and Good Eye Contact Mood Description: Apprehensive Affect Description: Flat Patient Cognition Impaired: No Ability to Follow Directions: Good Speech Pattern: Spontaneous Speech Memory Description: Intact Hallucinations: None Delusions: Not Present Perceptual Disturbances: Derealization Thought Process: Rumination Thought Content: positive for Suicidal Ideation (denies) Depressive Symptoms: Increased Anxiety and Hopelessness Judgement: Good Diagnostics Vital Signs (24Hr): Vital Signs - 24 hr 08/27/22 18:00 08/28/22 09:00 Temperature 96.7 F L 97.2 F Pulse Rate 71 68 Respiratory Rate 18 17 Blood Pressure 138/65 137/71 Pulse Oximetry 96 97 Oxygen Delivery Method Room Air Room Air BMI result Body Mass Index 25.4 Labs Results: 08/22/22 11:18 08/23/22 07:18 Medications Medications Current Medications Al Hydroxide/Mg Hydroxide (Magnesium Hydrox/Alum Hydrox 30 Ml Oral.Susp) 30 ml PO Q6H PRN PRN Reason: Heartburn/Nausea Albuterol Sulfate (Albuterol Sulfate 90 Mcg 8 Gm Inhaler) 2 puff INHALE Q6H PRN PRN Reason: Shortness Of Breath Cyanocobalamin (Cyanocobalamin (Vitamin B-12) 1,000 Mcg/Ml Vial) 1,000 mcg IM Q30D [facility] Last Admin: 08/27/22 21:26 Dose: 1,000 mcg Fluticasone/Vilanterol (Fluticasone/Vilanterol 200/25 Blst.W.Dev) 1 puff INHALE DAILY [facility] Last Admin: 08/28/22 09:33 Dose: 1 puff Gabapentin (Gabapentin 100 Mg Capsule) 200 mg PO TID [facility] Last Admin: 08/28/22 09:34 Dose: 200 mg Hydroxyzine HCl (Hydroxyzine Hcl 25 Mg Tablet) 25 mg PO Q6H PRN PRN Reason: Anxiety Lamotrigine (Lamotrigine 100 Mg Tablet) 200 mg PO BID [facility] Last Admin: 08/28/22 09:34 Dose: 200 mg Magnesium Hydroxide (Milk Of Magnesia 30 Ml Oral.Susp) 30 ml PO DAILY PRN PRN Reason: Constipation Melatonin (Melatonin 3 Mg Tablet) 6 mg PO BEDTIME PRN PRN Reason: Insomnia Mirtazapine (Mirtazapine 7.5 Mg Tablet) 7.5 mg PO BEDTIME [facility] Last Admin: 08/27/22 21:24 Dose: 7.5 mg Naproxen (Naproxen 500 Mg Tablet) 500 mg PO BID [facility] Last Admin: 08/28/22 09:36 Dose: 500 mg Omeprazole (Omeprazole 20 Mg Capsule.Dr) 20 mg PO DAILY@0630 [facility] Last Admin: 08/28/22 09:36 Dose: 20 mg Paroxetine HCl (Paroxetine Hcl 40 Mg Tablet) 40 mg PO DAILY [facility] Last Admin: 08/28/22 09:35 Dose: 40 mg Quetiapine Fumarate (Quetiapine Fumarate 50 Mg Tablet) 50 mg PO BID [facility] Last Admin: 08/28/22 09:35 Dose: 50 mg Topiramate (Topiramate 25 Mg Tablet) 25 mg PO DAILY [facility] Last Admin: 08/28/22 09:36 Dose: 25 mg Allergies Allergies Allergy/AdvReac Type Severity Reaction Status Date / Time sulfamethoxazole Allergy Anaphylaxis Verified 08/23/22 09:40 [From Bactrim] trimethoprim [From Bactrim] Allergy Anaphylaxis Verified 08/23/22 09:40 Assessment & Plan Assessment & Plan (1) JOSE (generalized anxiety disorder): Status: Acute Code(s): F41.1 - Generalized anxiety disorder (2) MDD (major depressive disorder), recurrent episode, moderate: Status: Acute Code(s): F33.1 - Major depressive disorder, recurrent, moderate (3) Crack cocaine use: Status: Acute Code(s): F14.90 - Cocaine use, unspecified, uncomplicated Plan 61 y/o female with history of multiple sclerosis and MDD recurrent. Pt presented to [facility] on 08/22/2022 from a homeless skilled nursing ([facility]) with SI with plan to overdose. Precipitating fx include that her family in [place] who wants nothing to do with her. She has been non-adherent on some of her psych meds (has been taking lamictal) and MS meds due to running out. Staff at her skilled nursing had found crack pipes on her and she was not allowed on the property, says this belonged to a friend, however per team pt has been using crack cocaine daily. Utox positive for amphetamines, cocaine, and cannabis. Denies alcohol abuse or withdrawal.?In belongings pt found to have substance suspicious for meth. 08/23/22- Refusing eval today. In bed, napping, no involvement in milieu. 08/25/22- Continue [facility] 08/26/22: Pt is awake and alert but isolative. Asks for gabapentin to be restored at 100 mg TID and for seroquel to be increased to 50 mg BID scheduled for anxiety. 08/27/22: Topamax 25 mg daily Increase Gabapentin to 200 mg tid Discontinue Trazodone Remeron 7.5 mg HS B12 IM monthly Change Naprosyn to scheduled 08/28/22: Continue current plan. Plan: Re-start paxil, trazodone, continue lamictal. Continue assessment, engagement. Refer to addiction services. Q15 min safety checks, CV Monitor response to medications. Monitor for safety in the milieu. Discharge on stabilization. Patient seen. Chart reviewed. Discussed with team. Obtain collateral contact info?as needed I spent minutes with the patient and/or on the patient floor today, greater than?50% of which was spent counseling/coordinating care. Patient educated on: medication risk/benefits and therapeutic strategies Informed Consent: further education needed Reason for contiued inpatient stay Substantial Risk for: rapid decompensation
[2022-08-28 15:45] VITALS: BP 118/58; PULSE 83
[2022-08-28] MEDS: Mirtazapine 7.5 MG TABLET PO (20:13)
[2022-08-28] MEDS: Melatonin 3 MG TABLET 6 MG PO (21:32)
[2022-08-28] MEDS: hydrOXYzine HCL 25 MG TABLET PO (21:32)
[2022-08-29] MEDS: hydrOXYzine HCL 25 MG TABLET PO (03:32)
[2022-08-29 06:00] VITALS: BP 109/56; PULSE 73; RESP 18; TEMP 36.6; O2SAT 97
[2022-08-29] MEDS: Omeprazole 20 MG CAPSULE.DR PO (06:19)
[2022-08-29] MEDS: QUEtiapine Fumarate 50 MG TABLET PO (09:34)
[2022-08-29] MEDS: Topiramate 25 MG TABLET PO (09:34)
[2022-08-29] MEDS: lamoTRIgine 100 MG TABLET 200 MG PO ×2 (09:34→19:59)
[2022-08-29] MEDS: NaPROXEN 500 MG TABLET PO ×2 (09:34→20:00)
[2022-08-29] MEDS: PARoxetine HCL 40 MG TABLET PO (09:34)
[2022-08-29] MEDS: Gabapentin 100 MG CAPSULE 200 MG PO ×3 (09:34→20:00)
[2022-08-29] MEDS: Fluticasone/Vilanterol 200/25 BLST.W.DEV 1 PUFF INHALE (09:38)
--- NOTE | 2022-08-29 14:41 | HO.PSYCHPN ---
Subjective Subjective Date of Service: 08/29/22 Reason For Visit: depression w/ si Subjective Notes: Conditional Voluntary Healthcare Proxy: No Guardianship: No Interim History: Reports a decrease in sleep, increase in anxiety. Peers are irritating and talks about having disagreements with unit rules. Medication Compliance: Yes Side effects from medications: No Attending Groups: No Review of Systems Acute medical concerns: No Medical Review of Systems: unchanged Mental Status Exam Mental Status Exam Patient Appearance: Appropriate Patient Orientation: Person, Place, Time and Situation Level of Consciousness: Alert Patient Behavior: Talkative, Cooperative and Good Eye Contact Mood Description: Apprehensive Affect Description: Flat Patient Cognition Impaired: No Ability to Follow Directions: Good Speech Pattern: Spontaneous Speech Memory Description: Intact Hallucinations: None Delusions: Not Present Perceptual Disturbances: Derealization Thought Process: Rumination Thought Content: positive for Suicidal Ideation (denies) Depressive Symptoms: Increased Anxiety and Hopelessness Judgement: Good Diagnostics Vital Signs (24Hr): Vital Signs - 24 hr 08/28/22 15:45 08/29/22 06:00 Temperature 97.8 F Pulse Rate 83 73 Respiratory Rate 18 Blood Pressure 118/58 L 109/56 L Pulse Oximetry 97 Oxygen Delivery Method Room Air BMI result Body Mass Index 25.4 Labs Results: 08/22/22 11:18 08/23/22 07:18 Medications Medications Current Medications Al Hydroxide/Mg Hydroxide (Magnesium Hydrox/Alum Hydrox 30 Ml Oral.Susp) 30 ml PO Q6H PRN PRN Reason: Heartburn/Nausea Albuterol Sulfate (Albuterol Sulfate 90 Mcg 8 Gm Inhaler) 2 puff INHALE Q6H PRN PRN Reason: Shortness Of Breath Cyanocobalamin (Cyanocobalamin (Vitamin B-12) 1,000 Mcg/Ml Vial) 1,000 mcg IM Q30D [facility] Last Admin: 08/27/22 21:26 Dose: 1,000 mcg Fluticasone/Vilanterol (Fluticasone/Vilanterol 200/25 Blst.W.Dev) 1 puff INHALE DAILY [facility] Last Admin: 08/29/22 09:38 Dose: 1 puff Gabapentin (Gabapentin 100 Mg Capsule) 200 mg PO TID [facility] Last Admin: 08/29/22 09:34 Dose: 200 mg Hydroxyzine HCl (Hydroxyzine Hcl 25 Mg Tablet) 25 mg PO Q6H PRN PRN Reason: Anxiety Last Admin: 08/29/22 03:32 Dose: 25 mg Lamotrigine (Lamotrigine 100 Mg Tablet) 200 mg PO BID [facility] Last Admin: 08/29/22 09:34 Dose: 200 mg Magnesium Hydroxide (Milk Of Magnesia 30 Ml Oral.Susp) 30 ml PO DAILY PRN PRN Reason: Constipation Melatonin (Melatonin 3 Mg Tablet) 6 mg PO BEDTIME PRN PRN Reason: Insomnia Last Admin: 08/28/22 21:32 Dose: 6 mg Mirtazapine (Mirtazapine 7.5 Mg Tablet) 7.5 mg PO BEDTIME [facility] Last Admin: 08/28/22 20:13 Dose: 7.5 mg Naproxen (Naproxen 500 Mg Tablet) 500 mg PO BID [facility] Last Admin: 08/29/22 09:34 Dose: 500 mg Omeprazole (Omeprazole 20 Mg Capsule.Dr) 20 mg PO DAILY@0630 [facility] Last Admin: 08/29/22 06:19 Dose: 20 mg Paroxetine HCl (Paroxetine Hcl 40 Mg Tablet) 40 mg PO DAILY [facility] Last Admin: 08/29/22 09:34 Dose: 40 mg Quetiapine Fumarate (Quetiapine Fumarate 50 Mg Tablet) 50 mg PO BID [facility] Last Admin: 08/29/22 09:34 Dose: 50 mg Topiramate (Topiramate 25 Mg Tablet) 25 mg PO DAILY [facility] Last Admin: 08/29/22 09:34 Dose: 25 mg Allergies Allergies Allergy/AdvReac Type Severity Reaction Status Date / Time sulfamethoxazole Allergy Anaphylaxis Verified 08/23/22 09:40 [From Bactrim] trimethoprim [From Bactrim] Allergy Anaphylaxis Verified 08/23/22 09:40 Assessment & Plan Assessment & Plan (1) JOSE (generalized anxiety disorder): Status: Acute Code(s): F41.1 - Generalized anxiety disorder (2) MDD (major depressive disorder), recurrent episode, moderate: Status: Acute Code(s): F33.1 - Major depressive disorder, recurrent, moderate (3) Crack cocaine use: Status: Acute Code(s): F14.90 - Cocaine use, unspecified, uncomplicated Plan 61 y/o female with history of multiple sclerosis and MDD recurrent. Pt presented to [facility] ED on 08/22/2022 from a homeless snf () with SI with plan to overdose. Precipitating fx include that her family in [place] who wants nothing to do with her. She has been non-adherent on some of her psych meds (has been taking lamictal) and MS meds due to running out. Staff at her snf had found crack pipes on her and she was not allowed on the property, says this belonged to a friend, however per team pt has been using crack cocaine daily. Utox positive for amphetamines, cocaine, and cannabis. Denies alcohol abuse or withdrawal.?In belongings pt found to have substance suspicious for meth. 08/23/22- Refusing eval today. In bed, napping, no involvement in milieu. 08/25/22- Continue [facility] 08/26/22: Pt is awake and alert but isolative. Asks for gabapentin to be restored at 100 mg TID and for seroquel to be increased to 50 mg BID scheduled for anxiety. 08/27/22: Topamax 25 mg daily Increase Gabapentin to 200 mg tid Discontinue Trazodone Remeron 7.5 mg HS B12 IM monthly Change Naprosyn to scheduled 08/29/22: Increase Mirtazapine to 15 mg HS Increase Seroquel to 75 mg bid Plan: Re-start paxil, trazodone, continue lamictal. Continue assessment, engagement. Refer to addiction services. Q15 min safety checks, CV Monitor response to medications. Monitor for safety in the milieu. Discharge on stabilization. Patient seen. Chart reviewed. Discussed with team. Obtain collateral contact info?as needed I spent minutes with the patient and/or on the patient floor today, greater than?50% of which was spent counseling/coordinating care. Patient educated on: medication risk/benefits and therapeutic strategies Informed Consent: understands and further education needed Reason for contiued inpatient stay Substantial Risk for: inability to function and rapid decompensation
[2022-08-29] MEDS: Mirtazapine 15 MG TABLET PO (20:00)
[2022-08-29] MEDS: QUEtiapine Fumarate 25 MG TABLET 75 MG PO (20:00)
[2022-08-29 20:11] VITALS: BP 125/80; PULSE 80
[2022-08-30] MEDS: Omeprazole 20 MG CAPSULE.DR PO (05:37)
[2022-08-30] MEDS: NaPROXEN 500 MG TABLET PO ×2 (08:53→20:43)
[2022-08-30] MEDS: lamoTRIgine 100 MG TABLET 200 MG PO ×2 (08:53→20:42)
[2022-08-30] MEDS: PARoxetine HCL 40 MG TABLET PO (08:53)
[2022-08-30] MEDS: Gabapentin 100 MG CAPSULE 200 MG PO ×3 (08:53→20:42)
[2022-08-30] MEDS: QUEtiapine Fumarate 25 MG TABLET 75 MG PO (08:53)
[2022-08-30] MEDS: Fluticasone/Vilanterol 200/25 BLST.W.DEV 1 PUFF INHALE (08:54)
[2022-08-30] MEDS: Topiramate 25 MG TABLET PO (08:54)
[2022-08-30 09:00] VITALS: BP 120/70; PULSE 64; RESP 18; TEMP 36.9; O2SAT 95
[2022-08-30 15:44] VITALS: BP 122/64; PULSE 70
--- NOTE | 2022-08-30 15:53 | P.PNPSI_ITS ---
Subjective Subjective Date of Service: 08/30/22 Reason For Visit: depression w/ si Subjective Notes: Conditional Voluntary Interim History: Record reviewed. Discussed with Nursing. Has been out of her room more. Today reports not feeling great and depressed with poor sleep. Waking most nights at 03:00. Main concern around discharge planning is where she will stay. Reports her boyfriend may have an apartment in [place] or other this. Denied SI. Denied psychosis. We did discuss increasing Seroquel at nighttime as she was on higher doses prior to admission. Medication Compliance: Yes Side effects from medications: No Attending Groups: Yes Review of Systems Acute medical concerns: No Review of Systems Review of Systems Unremarkable Mental Status Exam Mental Status Exam Narrative: Pleasant. Engaged. Self-care okay. Endorses some depression affect restricted. No SI. No HI. No agitation or psychosis. Insight and judgment okay Diagnostics Vital Signs (24Hr): Vital Signs - 24 hr 08/29/22 20:11 08/30/22 09:00 08/30/22 15:44 Temperature 98.5 F Pulse Rate 80 64 70 Respiratory Rate 18 Blood Pressure 125/80 120/70 122/64 Pulse Oximetry 95 Oxygen Delivery Method Room Air BMI result Body Mass Index 25.4 Labs Results: 08/22/22 11:18 08/23/22 07:18 Medications Medications Current Medications Al Hydroxide/Mg Hydroxide (Magnesium Hydrox/Alum Hydrox 30 Ml Oral.Susp) 30 ml PO Q6H PRN PRN Reason: Heartburn/Nausea Albuterol Sulfate (Albuterol Sulfate 90 Mcg 8 Gm Inhaler) 2 puff INHALE Q6H PRN PRN Reason: Shortness Of Breath Cyanocobalamin (Cyanocobalamin (Vitamin B-12) 1,000 Mcg/Ml Vial) 1,000 mcg IM Q30D [facility] Last Admin: 08/27/22 21:26 Dose: 1,000 mcg Fluticasone/Vilanterol (Fluticasone/Vilanterol 200/25 Blst.W.Dev) 1 puff INHALE DAILY [facility] Last Admin: 08/30/22 08:54 Dose: 1 puff Gabapentin (Gabapentin 100 Mg Capsule) 200 mg PO TID [facility] Last Admin: 08/30/22 14:11 Dose: 200 mg Hydroxyzine HCl (Hydroxyzine Hcl 25 Mg Tablet) 25 mg PO Q6H PRN PRN Reason: Anxiety Last Admin: 08/29/22 03:32 Dose: 25 mg Lamotrigine (Lamotrigine 100 Mg Tablet) 200 mg PO BID [facility] Last Admin: 08/30/22 08:53 Dose: 200 mg Magnesium Hydroxide (Milk Of Magnesia 30 Ml Oral.Susp) 30 ml PO DAILY PRN PRN Reason: Constipation Melatonin (Melatonin 3 Mg Tablet) 6 mg PO BEDTIME PRN PRN Reason: Insomnia Last Admin: 08/28/22 21:32 Dose: 6 mg Mirtazapine (Mirtazapine 15 Mg Tablet) 15 mg PO BEDTIME [facility] Last Admin: 08/29/22 20:00 Dose: 15 mg Naproxen (Naproxen 500 Mg Tablet) 500 mg PO BID [facility] Last Admin: 08/30/22 08:53 Dose: 500 mg Omeprazole (Omeprazole 20 Mg Capsule.Dr) 20 mg PO DAILY@0630 [facility] Last Admin: 08/30/22 05:37 Dose: 20 mg Paroxetine HCl (Paroxetine Hcl 40 Mg Tablet) 40 mg PO DAILY [facility] Last Admin: 08/30/22 08:53 Dose: 40 mg Quetiapine Fumarate (Quetiapine Fumarate 25 Mg Tablet) 75 mg PO BID [facility] Last Admin: 08/30/22 08:53 Dose: 75 mg Topiramate (Topiramate 25 Mg Tablet) 25 mg PO DAILY [facility] Last Admin: 08/30/22 08:54 Dose: 25 mg Allergies Allergies Allergy/AdvReac Type Severity Reaction Status Date / Time sulfamethoxazole Allergy Anaphylaxis Verified 08/23/22 09:40 [From Bactrim] trimethoprim [From Bactrim] Allergy Anaphylaxis Verified 08/23/22 09:40 Assessment & Plan Assessment & Plan (1) JOSE (generalized anxiety disorder): Status: Acute Code(s): F41.1 - Generalized anxiety disorder (2) MDD (major depressive disorder), recurrent episode, moderate: Status: Acute Code(s): F33.1 - Major depressive disorder, recurrent, moderate (3) Crack cocaine use: Status: Acute Code(s): F14.90 - Cocaine use, unspecified, uncomplicated Plan 61 y/o female with history of multiple sclerosis and MDD recurrent. Pt presented to [facility] on [place]/22/2022 from a homeless halfway ([facility]) with SI with plan to overdose. Precipitating fx include that her family in [place] who wants nothing to do with her. She has been non-adherent on some of her psych meds (has been taking lamictal) and MS meds due to running out. Staff at her halfway had found crack pipes on her and she was not allowed on the property, says this belonged to a friend, however per team pt has been using crack cocaine daily. Utox positive for amphetamines, cocaine, and cannabis. Denies alcohol abuse or withdrawal.?In belongings pt found to have substance suspicious for meth. 08/23/22- Refusing eval today. In bed, napping, no involvement in milieu. 08/25/22- [facility] 08/26/22: Pt is awake and alert but isolative. Asks for gabapentin to be restor ed at 100 mg TID and for seroquel to be increased to 50 mg BID scheduled for anxiety. 08/27/22: Topamax 25 mg daily Increase Gabapentin to 200 mg tid Discontinue Trazodone Remeron 7.5 mg HS B12 IM monthly Change Naprosyn to scheduled 08/29/22: Increase Mirtazapine to 15 mg HS Increase Seroquel to 75 mg bid 08/30/2022 increase nighttime Seroquel to 150 mg Plan: Re-start paxil, trazodone, continue lamictal. Continue assessment, engagement. Refer to addiction services. Q15 min safety checks, CV Monitor response to medications. Monitor for safety in the milieu. Discharge on stabilization. Patient seen. Chart reviewed. Discussed with team. Obtain collateral contact info?as needed I spent minutes with the patient and/or on the patient floor today, greater than?50% of which was spent counseling/coordinating care. Reason for contiued inpatient stay Substantial Risk for: harm to self and inability to function
[2022-08-30] MEDS: Simethicone 80 MG TAB.CHEW PO (20:42)
[2022-08-30] MEDS: Mirtazapine 15 MG TABLET PO (20:43)
[2022-08-30] MEDS: QUEtiapine Fumarate 50 MG TABLET 150 MG PO (20:43)
[2022-08-31] MEDS: Omeprazole 20 MG CAPSULE.DR PO (05:36)
[2022-08-31] MEDS: Simethicone 80 MG TAB.CHEW PO ×4 (05:50→22:55)
[2022-08-31 06:00] VITALS: BP 126/63; PULSE 68; RESP 18; TEMP 36.2; O2SAT 97
[2022-08-31] MEDS: NaPROXEN 500 MG TABLET PO ×2 (08:52→22:51)
[2022-08-31] MEDS: Gabapentin 100 MG CAPSULE 200 MG PO ×3 (08:52→22:52)
[2022-08-31] MEDS: QUEtiapine Fumarate 25 MG TABLET 75 MG PO (08:53)
[2022-08-31] MEDS: Topiramate 25 MG TABLET PO (08:54)
[2022-08-31] MEDS: lamoTRIgine 100 MG TABLET 200 MG PO ×2 (08:54→22:51)
[2022-08-31] MEDS: PARoxetine HCL 40 MG TABLET PO (08:54)
[2022-08-31] MEDS: Fluticasone/Vilanterol 200/25 BLST.W.DEV 1 PUFF INHALE (09:05)
--- NOTE | 2022-08-31 12:43 | P.PNPSI_ITS ---
Subjective Subjective Date of Service: 08/31/22 Reason For Visit: depression w/ si Subjective Notes: Conditional Voluntary Interim History: Record reviewed. Discussed with Nursing. Has been out of her room more. Still reports that sleep has been poor and awake again at 03:00. Hopeful that she hears good news from her boyfriend tomorrow around apartment. Otherwise stills feels down. Appetite low. Is interacting well with others and attending groups. Denied SI. Denied psychosis. We did discuss increasing Seroquel again at nighttime as she was on higher doses prior to admission. Medication Compliance: Yes Side effects from medications: No Attending Groups: Yes Review of Systems Acute medical concerns: No Mental Status Exam Mental Status Exam Narrative: Pleasant. Engaged. Self-care okay. Endorses some depression affect res tricted. No SI. No HI. No agitation or psychosis. Insight and judgment okay Diagnostics Vital Signs (24Hr): Vital Signs - 24 hr 08/30/22 15:44 08/31/22 06:00 Temperature 97.1 F Pulse Rate 70 68 Respiratory Rate 18 Blood Pressure 122/64 126/63 Pulse Oximetry 97 Oxygen Delivery Method Room Air BMI result Body Mass Index 25.4 Labs Results: 08/22/22 11:18 08/23/22 07:18 Medications Medications Current Medications Al Hydroxide/Mg Hydroxide (Magnesium Hydrox/Alum Hydrox 30 Ml Oral.Susp) 30 ml PO Q6H PRN PRN Reason: Heartburn/Nausea Albuterol Sulfate (Albuterol Sulfate 90 Mcg 8 Gm Inhaler) 2 puff INHALE Q6H PRN PRN Reason: Shortness Of Breath Cyanocobalamin (Cyanocobalamin (Vitamin B-12) 1,000 Mcg/Ml Vial) 1,000 mcg IM Q30D [facility] Last Admin: 08/27/22 21:26 Dose: 1,000 mcg Fluticasone/Vilanterol (Fluticasone/Vilanterol 200/25 Blst.W.Dev) 1 puff INHALE DAILY [facility] Last Admin: 08/31/22 09:05 Dose: 1 puff Gabapentin (Gabapentin 100 Mg Capsule) 200 mg PO TID [facility] Last Admin: 08/31/22 08:52 Dose: 200 mg Hydroxyzine HCl (Hydroxyzine Hcl 25 Mg Tablet) 25 mg PO Q6H PRN PRN Reason: Anxiety Last Admin: 08/29/22 03:32 Dose: 25 mg Lamotrigine (Lamotrigine 100 Mg Tablet) 200 mg PO BID [facility] Last Admin: 08/31/22 08:54 Dose: 200 mg Magnesium Hydroxide (Milk Of Magnesia 30 Ml Oral.Susp) 30 ml PO DAILY PRN PRN Reason: Constipation Melatonin (Melatonin 3 Mg Tablet) 6 mg PO BEDTIME PRN PRN Reason: Insomnia Last Admin: 08/28/22 21:32 Dose: 6 mg Mirtazapine (Mirtazapine 15 Mg Tablet) 15 mg PO BEDTIME [facility] Last Admin: 08/30/22 20:43 Dose: 15 mg Naproxen (Naproxen 500 Mg Tablet) 500 mg PO BID [facility] Last Admin: 08/31/22 08:52 Dose: 500 mg Omeprazole (Omeprazole 20 Mg Capsule.Dr) 20 mg PO DAILY@0630 [facility] Last Admin: 08/31/22 05:36 Dose: 20 mg Paroxetine HCl (Paroxetine Hcl 40 Mg Tablet) 40 mg PO DAILY [facility] Last Admin: 08/31/22 08:54 Dose: 40 mg Quetiapine Fumarate (Quetiapine Fumarate 50 Mg Tablet) 150 mg PO BEDTIME [facility] Last Admin: 08/30/22 20:43 Dose: 150 mg Quetiapine Fumarate (Quetiapine Fumarate 25 Mg Tablet) 75 mg PO DAILY [facility] Last Admin: 08/31/22 08:53 Dose: 75 mg Simethicone (Simethicone 80 Mg Tab.Chew) 80 mg PO QIDWMHS PRN PRN Reason: Gas Last Admin: 08/31/22 05:50 Dose: 80 mg Topiramate (Topiramate 25 Mg Tablet) 25 mg PO DAILY [facility] Last Admin: 08/31/22 08:54 Dose: 25 mg Allergies Allergies Allergy/AdvReac Type Severity Reaction Status Date / Time sulfamethoxazole Allergy Anaphylaxis Verified 08/23/22 09:40 [From Bactrim] trimethoprim [From Bactrim] Allergy Anaphylaxis Verified 08/23/22 09:40 Assessment & Plan Assessment & Plan (1) JOSE (generalized anxiety disorder): Status: Acute Code(s): F41.1 - Generalized anxiety disorder (2) MDD (major depressive disorder), recurrent episode, moderate: Status: Acute Code(s): F33.1 - Major depressive disorder, recurrent, moderate (3) Crack cocaine use: Status: Acute Code(s): F14.90 - Cocaine use, unspecified, uncomplicated Plan 61 y/o female with history of multiple sclerosis and MDD recurrent. Pt [place] [facility] [place] from a homeless half-way ([facility]) with SI with plan to overdose. Precipitating fx include that her family in [place] who wants nothing to do with her. She has been non-adherent on some of her psych meds (has been taking lamictal) and MS meds due to running out. Staff at her half-way had found crack pipes on her and she was not allowed on the property, says this belonged to a friend, however per team pt has been using crack cocaine daily. Utox posit betsy for amphetamines, cocaine, and cannabis. Denies alcohol abuse or withdrawal.?In belongings pt found to have substance suspicious for meth. 08/23/22- Refusing eval today. In bed, napping, no involvement in milieu. 08/25/22- Continue [facility] 08/26/22: Pt is awake and alert but isolative. Asks for gabapentin to be restored at 100 mg TID and for seroquel to be increased to 50 mg BID scheduled for anxiety. 08/27/22: Topamax 25 mg daily Increase Gabapentin to 200 mg tid Discontinue Trazodone Remeron 7.5 mg HS B12 IM monthly Change Naprosyn to scheduled 08/29/22: Increase Mirtazapine to 15 mg HS Increase Seroquel to 75 mg bid 08/30/2022 increase nighttime Seroquel to 150 mg 08/31/2022: Increase night Seroquel to 200 mg at bedtime Plan: Re-start paxil, trazodone, continue lamictal. Continue assessment, engagement. Refer to addiction services. Q15 min safety checks, CV Monitor response to medications. Monitor for safety in the milieu. Discharge on stabilization. Patient seen. Chart reviewed. Discussed with team. Obtain collateral contact info?as needed I spent minutes with the patient and/or on the patient floor today, greater than?50% of which was spent counseling/coordinating care. Reason for contiued inpatient stay Substantial Risk for: inability to function
[2022-08-31 16:05] VITALS: BP 119/73; PULSE 78; TEMP 36.8
[2022-08-31] MEDS: Mirtazapine 15 MG TABLET PO (22:51)
[2022-08-31] MEDS: QUEtiapine Fumarate 200 MG TABLET PO (22:52)
[2022-09-01] MEDS: Omeprazole 20 MG CAPSULE.DR PO (06:38)
[2022-09-01] MEDS: PARoxetine HCL 40 MG TABLET PO (09:04)
[2022-09-01] MEDS: Fluticasone/Vilanterol 200/25 BLST.W.DEV 1 PUFF INHALE (09:04)
[2022-09-01] MEDS: NaPROXEN 500 MG TABLET PO ×2 (09:04→20:31)
[2022-09-01] MEDS: QUEtiapine Fumarate 25 MG TABLET 75 MG PO (09:05)
[2022-09-01] MEDS: Gabapentin 100 MG CAPSULE 200 MG PO ×3 (09:05→20:32)
[2022-09-01] MEDS: lamoTRIgine 100 MG TABLET 200 MG PO ×2 (09:05→20:31)
[2022-09-01] MEDS: Topiramate 25 MG TABLET PO (09:05)
[2022-09-01 09:09] VITALS: BP 132/58; PULSE 65; RESP 18; TEMP 36.4; O2SAT 98
--- NOTE | 2022-09-01 12:58 | HO.PSYCHPN ---
Subjective Subjective Date of Service: 09/01/22 Reason For Visit: depression w/ si Subjective Notes: Conditional Voluntary Healthcare Proxy: No Guardianship: No Medical Problems Affecting Mental Status: No Interim History: Expressed anger with the intermediate for placing restrictions on her which she finds harsh, and are not being taken into consideration with her perspective on the events precipitating this decsion. Much discomfort with being up in the air for 30 days with current restriction and needing to go to a program. Asks to restart [id number] retrial low dosing. Sleep is still an issue-will trial one dose of Doxepin tonight Medication Compliance: Yes Side effects from medications: No Attending Groups: Intermittent Review of Systems Acute medical concerns: No Medical Review of Systems: unchanged Mental Status Exam Mental Status Exam Patient Appearance: Appropriate Patient Orientation: Person, Place, Time and Situation Level of Consciousness: Alert Patient Behavior: Appropriate, Talkative, Cooperative and Good Eye Contact Mood Description: Depressed and Angry Affect Description: Flat Patient Cognition Impaired: No Ability to Follow Directions: Good Speech Pattern: Clear, Appropriate and Spontaneous Speech Memory Description: Intact Hallucinations: None Delusions: Not Present Perceptual Disturbances: Derealization Thought Process: Rumination Thought Content: positive for [place] and positive for Circumstantial Depressive Symptoms: Increased Irritability Abnormal Motor Activity Signs and Symptoms: Restlessness Judgement: Good Diagnostics Vital Signs (24Hr): Vital Signs - 24 hr 08/31/22 16:05 09/01/22 09:09 Temperature 98.2 F 97.6 F Pulse Rate 78 65 Respiratory Rate 18 Blood Pressure 119/73 132/58 L Pulse Oximetry 98 Oxygen Delivery Method Room Air BMI result Body Mass Index 25.4 Labs Results: 08/22/22 11:18 08/23/22 07:18 Medications Medications Current Medications Al Hydroxide/Mg Hydroxide (Magnesium Hydrox/Alum Hydrox 30 Ml Oral.Susp) 30 ml PO Q6H PRN PRN Reason: Heartburn/Nausea Albuterol Sulfate (Albuterol Sulfate 90 Mcg 8 Gm Inhaler) 2 puff INHALE Q6H PRN PRN Reason: Shortness Of Breath Cyanocobalamin (Cyanocobalamin (Vitamin B-12) 1,000 Mcg/Ml Vial) 1,000 mcg IM Q30D [facility] Last Admin: 08/27/22 21:26 Dose: 1,000 mcg Fluticasone/Vilanterol (Fluticasone/Vilanterol 200/25 Blst.W.Dev) 1 puff INHALE DAILY [facility] Last Admin: 09/01/22 09:04 Dose: 1 puff Gabapentin (Gabapentin 100 Mg Capsule) 200 mg PO TID [facility] Last Admin: 09/01/22 09:05 Dose: 200 mg Hydroxyzine HCl (Hydroxyzine Hcl 25 Mg Tablet) 25 mg PO Q6H PRN PRN Reason: Anxiety Last Admin: 08/29/22 03:32 Dose: 25 mg Lamotrigine (Lamotrigine 100 Mg Tablet) 200 mg PO BID [facility] Last Admin: 09/01/22 09:05 Dose: 200 mg Magnesium Hydroxide (Milk Of Magnesia 30 Ml Oral.Susp) 30 ml PO DAILY PRN PRN Reason: Constipation Melatonin (Melatonin 3 Mg Tablet) 6 mg PO BEDTIME PRN PRN Reason: Insomnia Last Admin: 08/28/22 21:32 Dose: 6 mg Mirtazapine (Mirtazapine 15 Mg Tablet) 15 mg PO BEDTIME [facility] Last Admin: 08/31/22 22:51 Dose: 15 mg Naproxen (Naproxen 500 Mg Tablet) 500 mg PO BID [facility] Last Admin: 09/01/22 09:04 Dose: 500 mg Omeprazole (Omeprazole 20 Mg Capsule.Dr) 20 mg PO DAILY@0630 [facility] Last Admin: 09/01/22 06:38 Dose: 20 mg Paroxetine HCl (Paroxetine Hcl 40 Mg Tablet) 40 mg PO DAILY [facility] Last Admin: 09/01/22 09:04 Dose: 40 mg Quetiapine Fumarate (Quetiapine Fumarate 25 Mg Tablet) 75 mg PO DAILY [facility] Last Admin: 09/01/22 09:05 Dose: 75 mg Quetiapine Fumarate (Quetiapine Fumarate 200 Mg Tablet) 200 mg PO BEDTIME [facility] Last Admin: 08/31/22 22:52 Dose: 200 mg Simethicone (Simethicone 80 Mg Tab.Chew) 80 mg PO QIDWMHS PRN PRN Reason: Gas Last Admin: 08/31/22 22:55 Dose: 80 mg Topiramate (Topiramate 25 Mg Tablet) 25 mg PO DAILY [facility] Last Admin: 09/01/22 09:05 Dose: 25 mg Allergies Allergies Allergy/AdvReac Type Severity Reaction Status Date / Time sulfamethoxazole Allergy Anaphylaxis Verified 08/23/22 09:40 [From Bactrim] trimethoprim [From Bactrim] Allergy Anaphylaxis Verified 08/23/22 09:40 Assessment & Plan Assessment & Plan (1) JOSE (generalized anxiety disorder): Status: Acute Code(s): F41.1 - Generalized anxiety disorder (2) MDD (major depressive disorder), recurrent episode, moderate: Status: Acute Code(s): F33.1 - Major depressive disorder, recurrent, moderate (3) Crack cocaine use: Status: Acute Code(s): F14.90 - Cocaine use, unspecified, uncomplicated Plan 61 y/o female with history of multiple sclerosis and MDD recurrent. Pt presented to [facility] on 08/22/2022 from a homeless intermediate ([facility]) with SI with plan to overdose. Precipitating fx include that her family in [place] who wants nothing to do with her. She has been non-adherent on some of her psych meds (has been taking lamictal) and MS meds due to running out. Staff at her intermediate had found crack pipes on her and she was not allowed on the property, says this belonged to a friend, however per team pt has been using crack cocaine daily. Utox positive for amphetamines, cocaine, and cannabis. Denies alcohol abuse or withdrawal.?In belongings pt found to have substance suspicious for meth. 08/23/22- Refusing eval today. In bed, napping, no involvement in milieu. 08/25/22- Continue [facility] 08/26/22: Pt is awake and alert but isolative. Asks for gabapentin to be restored at 100 mg TID and for seroquel to be increased to 50 mg BID scheduled for anxiety. 08/27/22: Topamax 25 mg daily Increase Gabapentin to 200 mg tid Discontinue Trazodone Remeron 7.5 mg HS B12 IM monthly Change Naprosyn to scheduled 08/29/22: Increase Mirtazapine to 15 mg HS Increase Seroquel to 75 mg bid 08/30/2022 increase nighttime Seroquel to 150 mg 08/31/2022: Increase night Seroquel to 200 mg at bedtime 09/01/22: Doxepin 50 mg x 1 dose (trial for sleep) Ritalin 10 mg bid Discharge planning. Plan: Re-start paxil, trazodone, continue lamictal. Continue assessment, engagement. Refer to addiction services. Q15 min safety checks, CV Monitor response to medications. Monitor for safety in the milieu. Discharge on stabilization. Patient seen. Chart reviewed. Discussed with team. Obtain collateral contact info?as needed I spent minutes with the patient and/or on the patient floor today, greater than?50% of which was spent counseling/coordinating care. Patient educated on: medication risk/benefits and therapeutic strategies Informed Consent: understands Reason for contiued inpatient stay Substantial Risk for: rapid decompensation
[2022-09-01] MEDS: Simethicone 80 MG TAB.CHEW PO (13:28)
[2022-09-01] MEDS: hydrOXYzine HCL 25 MG TABLET PO (13:30)
[2022-09-01 18:00] VITALS: BP 122/65; PULSE 77; TEMP 36.8; O2SAT 94
[2022-09-01] MEDS: Mirtazapine 15 MG TABLET PO (20:31)
[2022-09-01] MEDS: QUEtiapine Fumarate 200 MG TABLET PO (22:45)
[2022-09-01] MEDS: Doxepin HCl 25 MG CAPSULE 50 MG PO (22:45)
[2022-09-02] MEDS: Omeprazole 20 MG CAPSULE.DR PO (05:53)
[2022-09-02 05:58] VITALS: BP 127/67; PULSE 70; RESP 16; TEMP 36.2; O2SAT 97
[2022-09-02] MEDS: QUEtiapine Fumarate 25 MG TABLET 75 MG PO (09:05)
[2022-09-02] MEDS: NaPROXEN 500 MG TABLET PO ×2 (09:05→20:17)
[2022-09-02] MEDS: Topiramate 25 MG TABLET PO (09:05)
[2022-09-02] MEDS: Fluticasone/Vilanterol 200/25 BLST.W.DEV 1 PUFF INHALE (09:05)
[2022-09-02] MEDS: PARoxetine HCL 40 MG TABLET PO (09:06)
[2022-09-02] MEDS: Gabapentin 100 MG CAPSULE 200 MG PO (09:06)
[2022-09-02] MEDS: lamoTRIgine 100 MG TABLET 200 MG PO ×2 (09:06→20:18)
[2022-09-02] MEDS: Simethicone 80 MG TAB.CHEW PO (09:16)
[2022-09-02 09:30] VITALS: BP 114/67; PULSE 87; RESP 16; TEMP 36.7; O2SAT 96
[2022-09-02] MEDS: Methylphenidate HCl 10 MG TABLET PO ×2 (10:09→17:22)
--- NOTE | 2022-09-02 14:54 | P.PNPSI_ITS ---
Subjective Subjective Date of Service: 09/02/22 Reason For Visit: depression w/ si Subjective Notes: Conditional Voluntary Healthcare Proxy: No Guardianship: No Medical Problems Affecting Mental Status: No Interim History: Doxepin not helpful for sleep per pt report. Discussed why Ambien is not used as this is her preference. Discussed making changes in Gabapentin dosing from 200 tid to 200mg a.m. 400 mg hs. She would like to trial this. Tolerating Ritalin and remainder of regime. In process of working with team to apply to 30 day programs for ongoing treatment Medication Compliance: Yes Side effects from medications: No Attending Groups: Intermittent Review of Systems Acute medical concerns: No Medical Review of Systems: unchanged Mental Status Exam Mental Status Exam Patient Appearance: Appropriate Patient Orientation: Person, Place, Time and Situation Level of Consciousness: Alert Patient Behavior: Appropriate, Talkative, Cooperative and Good Eye Contact Mood Description: Depressed and Angry Affect Description: Flat Patient Cognition Impaired: No Ability to Follow Directions: Good Speech Pattern: Clear, Appropriate and Spontaneous Speech Memory Description: Intact Hallucinations: None Delusions: Not Present Perceptual Disturbances: Derealization Thought Process: Rumination Thought Content: positive for [place] and positive for Circumstantial Depressive Symptoms: Increased Irritability Abnormal Motor Activity Signs and Symptoms: Restlessness Judgement: Good Diagnostics Vital Signs (24Hr): Vital Signs - 24 hr 09/01/22 18:00 09/02/22 05:58 09/02/22 09:30 Temperature 98.3 F 97.1 F 98.1 F Pulse Rate 77 70 87 Respiratory Rate 16 16 Blood Pressure 122/65 127/67 114/67 Pulse Oximetry 94 97 96 Oxygen Delivery Method Room Air Room Air Room Air BMI result Body Mass Index 25.4 Labs Results: 08/22/22 11:18 08/23/22 07:18 Medications Medications Current Medications Al Hydroxide/Mg Hydroxide (Magnesium Hydrox/Alum Hydrox 30 Ml Oral.Susp) 30 ml PO Q6H PRN PRN Reason: Heartburn/Nausea Albuterol Sulfate (Albuterol Sulfate 90 Mcg 8 Gm Inhaler) 2 puff INHALE Q6H PRN PRN Reason: Shortness Of Breath Cyanocobalamin (Cyanocobalamin (Vitamin B-12) 1,000 Mcg/Ml Vial) 1,000 mcg IM Q30D [facility] Last Admin: 08/27/22 21:26 Dose: 1,000 mcg Fluticasone/Vilanterol (Fluticasone/Vilanterol 200/25 Blst.W.Dev) 1 puff INHALE DAILY [facility] Last Admin: 09/02/22 09:05 Dose: 1 puff Gabapentin (Gabapentin 100 Mg Capsule) 200 mg PO DAILY [facility] Gabapentin (Gabapentin 400 Mg Capsule) 400 mg PO BEDTIME [facility] Hydroxyzine HCl (Hydroxyzine Hcl 25 Mg Tablet) 25 mg PO Q6H PRN PRN Reason: Anxiety Last Admin: 09/01/22 13:30 Dose: 25 mg Lamotrigine (Lamotrigine 100 Mg Tablet) 200 mg PO BID [facility] Last Admin: 09/02/22 09:06 Dose: 200 mg Magnesium Hydroxide (Milk Of Magnesia 30 Ml Oral.Susp) 30 ml PO DAILY PRN PRN Reason: Constipation Melatonin (Melatonin 3 Mg Tablet) 6 mg PO BEDTIME PRN PRN Reason: Insomnia Last Admin: 08/28/22 21:32 Dose: 6 mg Methylphenidate HCl (Methylphenidate Hcl 10 Mg Tablet) 10 mg PO BID@0800,1800 [facility] Last Admin: 09/02/22 10:09 Dose: 10 mg Mirtazapine (Mirtazapine 15 Mg Tablet) 15 mg PO BEDTIME [facility] Last Admin: 09/01/22 20:31 Dose: 15 mg Naproxen (Naproxen 500 Mg Tablet) 500 mg PO BID [facility] Last Admin: 09/02/22 09:05 Dose: 500 mg Omeprazole (Omeprazole 20 Mg Capsule.Dr) 20 mg PO DAILY@0630 [facility] Last Admin: 09/02/22 05:53 Dose: 20 mg Paroxetine HCl (Paroxetine Hcl 40 Mg Tablet) 40 mg PO DAILY [facility] Last Admin: 09/02/22 09:06 Dose: 40 mg Quetiapine Fumarate (Quetiapine Fumarate 25 Mg Tablet) 75 mg PO DAILY [facility] Last Admin: 09/02/22 09:05 Dose: 75 mg Quetiapine Fumarate (Quetiapine Fumarate 200 Mg Tablet) 200 mg PO BEDTIME [facility] Last Admin: 09/01/22 22:45 Dose: 200 mg Simethicone (Simethicone 80 Mg Tab.Chew) 80 mg PO QIDWMHS PRN PRN Reason: Gas Last Admin: 09/02/22 09:16 Dose: 80 mg Topiramate (Topiramate 25 Mg Tablet) 25 mg PO DAILY [facility] Last Admin: 09/02/22 09:05 Dose: 25 mg Allergies Allergies Allergy/AdvReac Type Severity Reaction Status Date / Time sulfamethoxazole Allergy Anaphylaxis Verified 08/23/22 09:40 [From Bactrim] trimethoprim [From Bactrim] Allergy Anaphylaxis Verified 08/23/22 09:40 Assessment & Plan Assessment & Plan (1) JOSE (generalized anxiety disorder): Status: Acute Code(s): F41.1 - Generalized anxiety disorder (2) MDD (major depressive disorder), recurrent episode, moderate: Status: Acute Code(s): F33.1 - Major depressive disorder, recurrent, moderate (3) Crack cocaine use: Status: Acute Code(s): F14.90 - Cocaine use, unspecified, uncomplicated Plan 61 y/o female with history of multiple sclerosis and MDD recurrent. Pt presented to [facility] ED on 08/22/2022 from a homeless group home ([facility]) with SI with plan to overdose. Precipitating fx include that her family in [place] who wants nothing to do with her. She has been non-adherent on some of her psych meds (has been taking lamictal) and MS meds due to running out. Staff at her group home had found crack pipes on her and she was not allowed on the property, says this belonged to a friend, however per team pt has been using crack cocaine daily. Utox positive for amphetamines, cocaine, and cannabis. Denies alcohol abuse or withdrawal.?In belongings pt found to have substance suspicious for meth. 08/23/22- Refusing eval today. In bed, napping, no involvement in milieu. 08/25/22- [facility] 08/26/22: Pt is awake and alert but isolative. Asks for gabapentin to be restored at 100 mg TID and for seroquel to be increased to 50 mg BID scheduled for anxiety. 08/27/22: Topamax 25 mg daily Increase Gabapentin to 200 mg tid Discontinue Trazodone Remeron 7.5 mg HS B12 IM monthly Change Naprosyn to scheduled 08/29/22: Increase Mirtazapine to 15 mg HS Increase Seroquel to 75 mg bid 08/30/2022 increase nighttime Seroquel to 150 mg 08/31/2022: Increase night Seroquel to 200 mg at bedtime 09/02/22: Discontinue Doxepin Discontinue Gabapentin- Gabapentin 200 mg a.m. 400 mg HS Plan: Re-start paxil, trazodone, continue lamictal. Continue assessment, eng agement. Refer to addiction services. Q15 min safety checks, CV Monitor response to medications. Monitor for safety in the milieu. Discharge on stabilization. Patient seen. Chart reviewed. Discussed with team. Obtain collateral contact info?as needed I spent minutes with the patient and/or on the patient floor today, greater than?50% of which was spent counseling/coordinating care. Patient educated on: medication risk/benefits, substance abuse and therapeutic strategies Informed Consent: understands and further education needed Reason for contiued inpatient stay Substantial Risk for: inability to function and rapid decompensation
[2022-09-02 18:00] VITALS: BP 122/82; PULSE 75; RESP 16; TEMP 36.4; O2SAT 97
[2022-09-02] MEDS: Mirtazapine 15 MG TABLET PO (20:17)
[2022-09-02] MEDS: Gabapentin 400 MG CAPSULE PO (20:17)
[2022-09-02] MEDS: QUEtiapine Fumarate 200 MG TABLET PO (20:18)
[2022-09-03 06:00] VITALS: BP 124/67; PULSE 70; RESP 16; TEMP 36.7; O2SAT 98
[2022-09-03] MEDS: QUEtiapine Fumarate 25 MG TABLET 75 MG PO (09:10)
[2022-09-03] MEDS: Gabapentin 100 MG CAPSULE 200 MG PO (09:11)
[2022-09-03] MEDS: Topiramate 25 MG TABLET PO (09:11)
[2022-09-03] MEDS: lamoTRIgine 100 MG TABLET 200 MG PO ×2 (09:11→20:47)
[2022-09-03] MEDS: PARoxetine HCL 40 MG TABLET PO (09:11)
[2022-09-03] MEDS: NaPROXEN 500 MG TABLET PO ×2 (09:11→20:47)
[2022-09-03] MEDS: Methylphenidate HCl 10 MG TABLET PO ×2 (09:11→18:26)
[2022-09-03] MEDS: Omeprazole 20 MG CAPSULE.DR PO (09:11)
[2022-09-03] MEDS: Albuterol Sulfate 90 MCG 8 GM INHALER 2 PUFF INHALE (09:12)
[2022-09-03] MEDS: Fluticasone/Vilanterol 200/25 BLST.W.DEV 1 PUFF INHALE (09:12)
[2022-09-03] MEDS: Simethicone 80 MG TAB.CHEW PO (14:57)
--- NOTE | 2022-09-03 15:07 | HO.PSYCHPN ---
Subjective Subjective Date of Service: 09/03/22 Reason For Visit: depression w/ si Subjective Notes: Conditional Voluntary Healthcare Proxy: No Guardianship: No Medical Problems Affecting Mental Status: No Interim History: Reports no issues of concern. [facility]. Pt is visable in milieu, participating in groups and social with peers. Medication Compliance: Yes Side effects from medications: No Attending Groups: Yes Review of Systems Acute medical concerns: No Medical Review of Systems: unchanged Mental Status Exam Mental Status Exam Patient Appearance: Appropriate Patient Orientation: Person, Place, Time and Situation Level of Consciousness: Alert Patient Behavior: Appropriate, Talkative, Cooperative and Good Eye Contact Mood Description: Depressed and Angry Affect Description: Flat Patient Cognition Impaired: No Ability to Follow Directions: Good Speech Pattern: Clear, Appropriate and Spontaneous Speech Memory Description: Intact Hallucinations: None Delusions: Not Present Perceptual Disturbances: Derealization Thought Process: Rumination Thought Content: positive for [place] and positive for Circumstantial Depressive Symptoms: Increased Irritability Abnormal Motor Activity Signs and Symptoms: Restlessness Judgement: Good Diagnostics Vital Signs (24Hr): Vital Signs - 24 hr 09/02/22 18:00 09/03/22 06:00 Temperature 97.6 F 98.0 F Pulse Rate 75 70 Respiratory Rate 16 16 Blood Pressure 122/82 124/67 Pulse Oximetry 97 98 Oxygen Delivery Method Room Air Room Air BMI result Body Mass Index 25.4 Labs Results: 08/22/22 11:18 08/23/22 07:18 Medications Medications Current Medications Al Hydroxide/Mg Hydroxide (Magnesium Hydrox/Alum Hydrox 30 Ml Oral.Susp) 30 ml PO Q6H PRN PRN Reason: Heartburn/Nausea Albuterol Sulfate (Albuterol Sulfate 90 Mcg 8 Gm Inhaler) 2 puff INHALE Q6H PRN PRN Reason: Shortness Of Breath Last Admin: 09/03/22 09:12 Dose: 2 puff Cyanocobalamin (Cyanocobalamin (Vitamin B-12) 1,000 Mcg/Ml Vial) 1,000 mcg IM Q30D [facility] Last Admin: 08/27/22 21:26 Dose: 1,000 mcg Fluticasone/Vilanterol (Fluticasone/Vilanterol 200/25 Blst.W.Dev) 1 puff INHALE DAILY [facility] Last Admin: 09/03/22 09:12 Dose: 1 puff Gabapentin (Gabapentin 100 Mg Capsule) 200 mg PO DAILY [facility] Last Admin: 09/03/22 09:11 Dose: 200 mg Gabapentin (Gabapentin 400 Mg Capsule) 400 mg PO BEDTIME [facility] Last Admin: 09/02/22 20:17 Dose: 400 mg Hydroxyzine HCl (Hydroxyzine Hcl 25 Mg Tablet) 25 mg PO Q6H PRN PRN Reason: Anxiety Last Admin: 09/01/22 13:30 Dose: 25 mg Lamotrigine (Lamotrigine 100 Mg Tablet) 200 mg PO BID [facility] Last Admin: 09/03/22 09:11 Dose: 200 mg Magnesium Hydroxide (Milk Of Magnesia 30 Ml Oral.Susp) 30 ml PO DAILY PRN PRN Reason: Constipation Melatonin (Melatonin 3 Mg Tablet) 6 mg PO BEDTIME PRN PRN Reason: Insomnia Last Admin: 08/28/22 21:32 Dose: 6 mg Methylphenidate HCl (Methylphenidate Hcl 10 Mg Tablet) 10 mg PO BID@0800,1800 [facility] Last Admin: 09/03/22 09:11 Dose: 10 mg Mirtazapine (Mirtazapine 15 Mg Tablet) 15 mg PO BEDTIME [facility] Last Admin: 09/02/22 20:17 Dose: 15 mg Naproxen (Naproxen 500 Mg Tablet) 500 mg PO BID [facility] Last Admin: 09/03/22 09:11 Dose: 500 mg Omeprazole (Omeprazole 20 Mg Capsule.Dr) 20 mg PO DAILY@0630 [facility] Last Admin: 09/03/22 09:11 Dose: 20 mg Paroxetine HCl (Paroxetine Hcl 40 Mg Tablet) 40 mg PO DAILY [facility] Last Admin: 09/03/22 09:11 Dose: 40 mg Quetiapine Fumarate (Quetiapine Fumarate 25 Mg Tablet) 75 mg PO DAILY [facility] Last Admin: 09/03/22 09:10 Dose: 75 mg Quetiapine Fumarate (Quetiapine Fumarate 200 Mg Tablet) 200 mg PO BEDTIME [facility] Last Admin: 09/02/22 20:18 Dose: 200 mg Simethicone (Simethicone 80 Mg Tab.Chew) 80 mg PO QIDWMHS PRN PRN Reason: Gas Last Admin: 09/03/22 14:57 Dose: 80 mg Topiramate (Topiramate 25 Mg Tablet) 25 mg PO DAILY [facility] Last Admin: 09/03/22 09:11 Dose: 25 mg Allergies Allergies Allergy/AdvReac Type Severity Reaction Status Date / Time sulfamethoxazole Allergy Anaphylaxis Verified 08/23/22 09:40 [From Bactrim] trimethoprim [From Bactrim] Allergy Anaphylaxis Verified 08/23/22 09:40 Assessment & Plan Assessment & Plan (1) JOSE (generalized anxiety disorder): Status: Acute Code(s): F41.1 - Generalized anxiety disorder (2) MDD (major depressive disorder), recurrent episode, moderate: Status: Acute Code(s): F33.1 - Major depressive disorder, recurrent, moderate (3) Crack cocaine use: Status: Acute Code(s): F14.90 - Cocaine use, unspecified, uncomplicated Plan 61 y/o female with history of multiple sclerosis and MDD recurrent. Pt presented to [facility] ED on 08/22/2022 from a homeless detention ([facility]) with SI with plan to overdose. Precipitating fx include that her family in [place] who wants nothing to do with her. She has been non-adherent on some of her psych meds (has been taking lamictal) and MS meds due to running out. Staff at her detention had found crack pipes on her and she was not allowed on the property, says this belonged to a friend, however per team pt has been using crack cocaine daily. Utox positive for amphetamines, cocaine, and cannabis. Denies alcohol abuse or withdrawal.?In belongings pt found to have substance suspicious for meth. 08/23/22- Refusing eval today. In bed, napping, no involvement in milieu. 08/25/22- [facility] 08/26/22: Pt is awake and alert but isolative. Asks for gabapentin to be restored at 100 mg TID and for seroquel to be increased to 50 mg BID scheduled for anxiety. 08/27/22: Topamax 25 mg daily Increase Gabapentin to 200 mg tid Discontinue Trazodone Remeron 7.5 mg HS B12 IM monthly Change Naprosyn to scheduled 08/29/22: Increase Mirtazapine to 15 mg HS Increase Seroquel to 75 mg bid 08/30/2022 increase nighttime Seroquel to 150 mg 08/31/2022: Increase night Seroquel to 200 mg at bedtime 09/02/22: Discontinue Doxepin Discontinue Gabapentin- Gabapentin 200 mg a.m. 400 mg HS 09/03/22: Continue current regime. Plan: Re-start paxil, trazodone, continue lamictal. Continue assessment, engagement. Refer to addiction services. Q15 min safety checks, CV Monitor response to medications. Monitor for safety in the milieu. Discharge on stabilization. Patient seen. Chart reviewed. Discussed with team. Obtain collateral contact info?as needed I spent minutes with the patient and/or on the patient floor today, greater than?50% of which was spent counseling/coordinating care. Patient educated on: medication risk/benefits and therapeutic strategies Informed Consent: understands Reason for contiued inpatient stay Substantial Risk for: rapid decompensation
[2022-09-03 19:00] VITALS: BP 126/60; PULSE 72; RESP 16; TEMP 36.7; O2SAT 95
[2022-09-03] MEDS: Gabapentin 400 MG CAPSULE PO (20:47)
[2022-09-03] MEDS: QUEtiapine Fumarate 200 MG TABLET PO (20:47)
[2022-09-03] MEDS: Mirtazapine 15 MG TABLET PO (20:48)
[2022-09-04 06:00] VITALS: BP 111/55; PULSE 63; RESP 16; TEMP 36.5; O2SAT 98
[2022-09-04] MEDS: Omeprazole 20 MG CAPSULE.DR PO (06:13)
[2022-09-04] MEDS: Gabapentin 100 MG CAPSULE 200 MG PO (08:36)
[2022-09-04] MEDS: lamoTRIgine 100 MG TABLET 200 MG PO ×2 (08:36→20:53)
[2022-09-04] MEDS: Topiramate 25 MG TABLET PO (08:37)
[2022-09-04] MEDS: NaPROXEN 500 MG TABLET PO ×2 (08:37→17:57)
[2022-09-04] MEDS: Methylphenidate HCl 10 MG TABLET PO (08:37)
[2022-09-04] MEDS: QUEtiapine Fumarate 25 MG TABLET 75 MG PO (08:37)
[2022-09-04] MEDS: PARoxetine HCL 40 MG TABLET PO (08:37)
[2022-09-04] MEDS: Albuterol Sulfate 90 MCG 8 GM INHALER 2 PUFF INHALE (08:37)
[2022-09-04] MEDS: Fluticasone/Vilanterol 200/25 BLST.W.DEV 1 PUFF INHALE (08:38)
[2022-09-04] MEDS: hydrOXYzine HCL 25 MG TABLET PO ×2 (13:29→20:53)
[2022-09-04 18:15] VITALS: BP 132/64; PULSE 88; TEMP 36.3
[2022-09-04] MEDS: QUEtiapine Fumarate 200 MG TABLET PO (20:53)
[2022-09-04] MEDS: Simethicone 80 MG TAB.CHEW PO (20:53)
[2022-09-04] MEDS: Mirtazapine 15 MG TABLET PO (20:53)
[2022-09-04] MEDS: Gabapentin 400 MG CAPSULE PO (20:53)
[2022-09-04 22:25] LABS: COVID-19 Test Negative (Negative)
[2022-09-05] MEDS: Omeprazole 20 MG CAPSULE.DR PO (06:26)
[2022-09-05] MEDS: Methylphenidate HCl 10 MG TABLET PO ×2 (06:27→12:49)
[2022-09-05] MEDS: NaPROXEN 500 MG TABLET PO ×2 (08:49→20:56)
[2022-09-05] MEDS: Topiramate 25 MG TABLET PO (08:50)
[2022-09-05] MEDS: lamoTRIgine 100 MG TABLET 200 MG PO ×2 (08:50→20:56)
[2022-09-05] MEDS: PARoxetine HCL 40 MG TABLET PO (08:50)
[2022-09-05] MEDS: QUEtiapine Fumarate 25 MG TABLET 75 MG PO (08:50)
[2022-09-05] MEDS: Gabapentin 100 MG CAPSULE 200 MG PO (08:50)
[2022-09-05] MEDS: Fluticasone/Vilanterol 200/25 BLST.W.DEV 1 PUFF INHALE (08:52)
[2022-09-05 09:08] VITALS: BP 123/74; PULSE 73; RESP 14; TEMP 36.6; O2SAT 98
[2022-09-05] MEDS: Simethicone 80 MG TAB.CHEW PO (12:49)
--- NOTE | 2022-09-05 15:02 | P.PNPSI_ITS ---
Subjective Subjective Date of Service: 09/04/22 Reason For Visit: depression w/ si Subjective Notes: Conditional Voluntary Healthcare Proxy: No Guardianship: No Medical Problems Affecting Mental Status: No Interim History: Sleep pt reports is still problematic. Will add scheduled hydroxyzine 25 mg. Discussed re-starting Ritalin 10 mg bid. Awaits word on placement options. Medication Compliance: Yes Side effects from medications: No Attending Groups: Yes Review of Systems Acute medical concerns: No Medical Review of Systems: unchanged Mental Status Exam Mental Status Exam Patient Appearance: Appropriate Patient Orientation: Person, Place, Time and Situation Level of Consciousness: Alert Patient Behavior: Appropriate, Talkative, Cooperative and Good Eye Contact Mood Description: Depressed and Angry Affect Description: Flat Patient Cognition Impaired: No Ability to Follow Directions: Good Speech Pattern: Clear, Appropriate and Spontaneous Speech Memory Description: Intact Hallucinations: None Delusions: Not Present Perceptual Disturbances: Derealization Thought Process: Rumination Thought Content: positive for [place] and positive for Circumstantial Judgement: Good Diagnostics Vital Signs (24Hr): Vital Signs - 24 hr 09/04/22 18:15 09/05/22 09:08 Temperature 97.3 F 97.9 F Pulse Rate 88 73 Respiratory Rate 14 Blood Pressure 132/64 123/74 Pulse Oximetry 98 Oxygen Delivery Method Room Air BMI result Body Mass Index 25.4 Labs Results: 08/22/22 11:18 08/23/22 07:18 Labs: Laboratory Results - last 48 hr 09/04/22 21:47 COVID-19 ([facility]) Negative COVID-19 Clin Com See Note Medications Medications Current Medications Al Hydroxide/Mg Hydroxide (Magnesium Hydrox/Alum Hydrox 30 Ml Oral.Susp) 30 ml PO Q6H PRN PRN Reason: Heartburn/Nausea Albuterol Sulfate (Albuterol Sulfate 90 Mcg 8 Gm Inhaler) 2 puff INHALE Q6H PRN PRN Reason: Shortness Of Breath Last Admin: 09/04/22 08:37 Dose: 2 puff Cyanocobalamin (Cyanocobalamin (Vitamin B-12) 1,000 Mcg/Ml Vial) 1,000 mcg IM Q30D [facility] Last Admin: 08/27/22 21:26 Dose: 1,000 mcg Fluticasone/Vilanterol (Fluticasone/Vilanterol 200/25 Blst.W.Dev) 1 puff INHALE DAILY [facility] Last Admin: 09/05/22 08:52 Dose: 1 puff Gabapentin (Gabapentin 100 Mg Capsule) 200 mg PO DAILY [facility] Last Admin: 09/05/22 08:50 Dose: 200 mg Gabapentin (Gabapentin 400 Mg Capsule) 400 mg PO BEDTIME [facility] Last Admin: 09/04/22 20:53 Dose: 400 mg Hydroxyzine HCl (Hydroxyzine Hcl 25 Mg Tablet) 25 mg PO BEDTIME [facility] Last Admin: 09/04/22 20:53 Dose: 25 mg Hydroxyzine HCl (Hydroxyzine Hcl 25 Mg Tablet) 25 mg PO Q4H PRN PRN Reason: Anxiety Lamotrigine (Lamotrigine 100 Mg Tablet) 200 mg PO BID [facility] Last Admin: 09/05/22 08:50 Dose: 200 mg Magnesium Hydroxide (Milk Of Magnesia 30 Ml Oral.Susp) 30 ml PO DAILY PRN PRN Reason: Constipation Melatonin (Melatonin 3 Mg Tablet) 6 mg PO BEDTIME PRN PRN Reason: Insomnia Last Admin: 08/28/22 21:32 Dose: 6 mg Methylphenidate HCl (Methylphenidate Hcl 10 Mg Tablet) 10 mg PO 0700,1300 [facility] Last Admin: 09/05/22 12:49 Dose: 10 mg Mirtazapine (Mirtazapine 15 Mg Tablet) 15 mg PO BEDTIME [facility] Last Admin: 09/04/22 20:53 Dose: 15 mg Naproxen (Naproxen 500 Mg Tablet) 500 mg PO BID [facility] Last Admin: 09/05/22 08:49 Dose: 500 mg Omeprazole (Omeprazole 20 Mg Capsule.Dr) 20 mg PO DAILY@0630 [facility] Last Admin: 09/05/22 06:26 Dose: 20 mg Paroxetine HCl (Paroxetine Hcl 40 Mg Tablet) 40 mg PO DAILY [facility] Last Admin: 09/05/22 08:50 Dose: 40 mg Quetiapine Fumarate (Quetiapine Fumarate 25 Mg Tablet) 75 mg PO DAILY [facility] Last Admin: 09/05/22 08:50 Dose: 75 mg Quetiapine Fumarate (Quetiapine Fumarate 200 Mg Tablet) 200 mg PO BEDTIME [facility] Last Admin: 09/04/22 20:53 Dose: 200 mg Simethicone (Simethicone 80 Mg Tab.Chew) 80 mg PO QIDWMHS PRN PRN Reason: Gas Last Admin: 09/05/22 12:49 Dose: 80 mg Topiramate (Topiramate 25 Mg Tablet) 25 mg PO DAILY [facility] Last Admin: 09/05/22 08:50 Dose: 25 mg Allergies Allergies Allergy/AdvReac Type Severity Reaction Status Date / Time sulfamethoxazole Allergy Anaphylaxis Verified 08/23/22 09:40 [From Bactrim] trimethoprim [From Bactrim] Allergy Anaphylaxis Verified 08/23/22 09:40 Assessment & Plan Assessment & Plan (1) JOSE (generalized anxiety disorder): Status: Acute Code(s): F41.1 - Generalized anxiety disorder (2) MDD (major depressive disorder), recurrent episode, moderate: Status: Acute Code(s): F33.1 - Major depressive disorder, recurrent, moderate (3) Crack cocaine use: Status: Acute Code(s): F14.90 - Cocaine use, unspecified, uncomplicated Plan 61 y/o female with history of multiple sclerosis and MDD recurrent. Pt presented to [place] ED on 08/22/2022 from a homeless snf ([facility]) with SI with plan to overdose. Precipitating fx include that her family in [place] who wants nothing to do with her. She has been non-adherent on some of her psych meds (has been taking lamictal) and MS meds due to running out. Staff at her snf had found crack pipes on her and she was not allowed on the property, says this belonged to a friend, however per team pt has been using crack cocaine daily. Utox positive for amphetamines, cocaine, and cannabis. Denies alcohol abuse or withdrawal.?In belongings pt found to have substance suspicious for meth. 08/23/22- Refusing eval today. In bed, napping, no involvement in milieu. 08/25/22- [facility] 08/26/22: Pt is awake and alert but isolative. Asks for gabapentin to be restored at 100 mg TID and for seroquel to be increased to 50 mg BID scheduled for anxiety. 08/27/22: Topamax 25 mg daily Increase Gabapentin to 200 mg tid Discontinue Trazodone Remeron 7.5 mg HS B12 IM monthly Change Naprosyn to scheduled 08/29/22: Increase Mirtazapine to 15 mg HS Increase Seroquel to 75 mg bid 08/30/2022 increase nighttime Seroquel to 150 mg 08/31/2022: Increase night Seroquel to 200 mg at bedtime 09/02/22: Discontinue Doxepin Discontinue Gabapentin- Gabapentin 200 mg a.m. 400 mg HS 09/04/22: Hydroxyzine 25 mg HS Ritalin 10 mg bid re-start Plan: Re-start paxil, trazodone, continue lamictal. Continue assessment, engagement. Refer to addiction services. Q15 min safety checks, CV Monitor response to medications. Monitor for safety in the milieu. Discharge on stabilization. Patient seen. Chart reviewed. Discussed with team. Obtain collateral contact info?as needed I spent minutes with the patient and/or on the patient floor today, greater than?50% of which was spent counseling/coordinating care. Patient educated on: medication risk/benefits and therapeutic strategies Informed Consent: understands Reason for contiued inpatient stay Substantial Risk for: inability to function and rapid decompensation
--- NOTE | 2022-09-05 15:02 | P.PNPSI_ITS ---
Subjective Subjective Date of Service: 09/05/22 Reason For Visit: depression w/ si Subjective Notes: Conditional Voluntary Healthcare Proxy: No Guardianship: No Medical Problems Affecting Mental Status: No Interim History: Discussed boyfriend finding an apartment in [place] and having this as an option for housing post discharge. Reports some stress due to milieu activity, some patients being diagnosed with COVID and needing to change units. Sleep is OK with scheduled hydroxyzine. Ti brayan adjusted with Ritalin. Discussed discharge for next week to a program or to apartment rented by her boyfriend. Denies SI. Reports depressive sx 5, anxiety 5 due to milieu changes, reports of positive COVID testing. Medication Compliance: Yes Side effects from medications: No Attending Groups: Yes Review of Systems Acute medical concerns: No Medical Review of Systems: unchanged Mental Status Exam Mental Status Exam Patient Appearance: Appropriate Patient Orientation: Person, Place, Time and Situation Level of Consciousness: Alert Patient Behavior: Appropriate, Talkative, Cooperative and Good Eye Contact Mood Description: Depressed and Angry Affect Description: Flat Patient Cognition Impaired: No Ability to Follow Directions: Good Speech Pattern: Clear, Appropriate and Spontaneous Speech Memory Description: Intact Hallucinations: None Delusions: Not Present Perceptual Disturbances: Derealization Thought Process: Rumination Thought Content: positive for [place] and positive for Circumstantial Judgement: Good Diagnostics Vital Signs (24Hr): Vital Signs - 24 hr 09/04/22 18:15 09/05/22 09:08 Temperature 97.3 F 97.9 F Pulse Rate 88 73 Respiratory Rate 14 Blood Pressure 132/64 123/74 Pulse Oximetry 98 Oxygen Delivery Method Room Air BMI result Body Mass Index 25.4 Labs Results: 08/22/22 11:18 08/23/22 07:18 Labs: Laboratory Results - last 48 hr 09/04/22 21:47 COVID-19 ([facility]) Negative COVID-19 Clin Com See Note Medications Medications Current Medications Al Hydroxide/Mg Hydroxide (Magnesium Hydrox/Alum Hydrox 30 Ml Oral.Susp) 30 ml PO Q6H PRN PRN Reason: Heartburn/Nausea Albuterol Sulfate (Albuterol Sulfate 90 Mcg 8 Gm Inhaler) 2 puff INHALE Q6H PRN PRN Reason: Shortness Of Breath Last Admin: 09/04/22 08:37 Dose: 2 puff Cyanocobalamin (Cyanocobalamin (Vitamin B-12) 1,000 Mcg/Ml Vial) 1,000 mcg IM Q30D [facility] Last Admin: 08/27/22 21:26 Dose: 1,000 mcg Fluticasone/Vilanterol (Fluticasone/Vilanterol 200/25 Blst.W.Dev) 1 puff INHALE DAILY [facility] Last Admin: 09/05/22 08:52 Dose: 1 puff Gabapentin (Gabapentin 100 Mg Capsule) 200 mg PO DAILY [facility] Last Admin: 09/05/22 08:50 Dose: 200 mg Gabapentin (Gabapentin 400 Mg Capsule) 400 mg PO BEDTIME [facility] Last Admin: 09/04/22 20:53 Dose: 400 mg Hydroxyzine HCl (Hydroxyzine Hcl 25 Mg Tablet) 25 mg PO BEDTIME [facility] Last Admin: 09/04/22 20:53 Dose: 25 mg Hydroxyzine HCl (Hydroxyzine Hcl 25 Mg Tablet) 25 mg PO Q4H PRN PRN Reason: Anxiety Lamotrigine (Lamotrigine 100 Mg Tablet) 200 mg PO BID [facility] Last Admin: 09/05/22 08:50 Dose: 200 mg Magnesium Hydroxide (Milk Of Magnesia 30 Ml Oral.Susp) 30 ml PO DAILY PRN PRN Reason: Constipation Melatonin (Melatonin 3 Mg Tablet) 6 mg PO BEDTIME PRN PRN Reason: Insomnia Last Admin: 08/28/22 21:32 Dose: 6 mg Methylphenidate HCl (Methylphenidate Hcl 10 Mg Tablet) 10 mg PO 0700,1300 [facility] Last Admin: 09/05/22 12:49 Dose: 10 mg Mirtazapine (Mirtazapine 15 Mg Tablet) 15 mg PO BEDTIME [facility] Last Admin: 09/04/22 20:53 Dose: 15 mg Naproxen (Naproxen 500 Mg Tablet) 500 mg PO BID [facility] Last Admin: 09/05/22 08:49 Dose: 500 mg Omeprazole (Omeprazole 20 Mg Capsule.Dr) 20 mg PO DAILY@0630 [facility] Last Admin: 09/05/22 06:26 Dose: 20 mg Paroxetine HCl (Paroxetine Hcl 40 Mg Tablet) 40 mg PO DAILY [facility] Last Admin: 09/05/22 08:50 Dose: 40 mg Quetiapine Fumarate (Quetiapine Fumarate 25 Mg Tablet) 75 mg PO DAILY [facility] Last Admin: 09/05/22 08:50 Dose: 75 mg Quetiapine Fumarate (Quetiapine Fumarate 200 Mg Tablet) 200 mg PO BEDTIME [facility] Last Admin: 09/04/22 20:53 Dose: 200 mg Simethicone (Simethicone 80 Mg Tab.Chew) 80 mg PO QIDWMHS PRN PRN Reason: Gas Last Admin: 09/05/22 12:49 Dose: 80 mg Topiramate (Topiramate 25 Mg Tablet) 25 mg PO DAILY [facility] Last Admin: 09/05/22 08:50 Dose: 25 mg Allergies Allergies Allergy/AdvReac Type Severity Reaction Status Date / Time sulfamethoxazole Allergy Anaphylaxis Verified 08/23/22 09:40 [From Bactrim] trimethoprim [From Bactrim] Allergy Anaphylaxis Verified 08/23/22 09:40 Assessment & Plan Assessment & Plan (1) JOSE (generalized anxiety disorder): Status: Acute Code(s): F41.1 - Generalized anxiety disorder (2) MDD (major depressive disorder), recurrent episode, moderate: Status: Acute Code(s): F33.1 - Major depressive disorder, recurrent, moderate (3) Crack cocaine use: Status: Acute Code(s): F14.90 - Cocaine use, unspecified, uncomplicated Plan 61 y/o female with history of multiple sclerosis and MDD recurrent. Pt presented to [facility] on 08/22/2022 from a homeless group home ([facility]) with SI with plan to overdose. Precipitating fx include that her family in [place] who wants nothing to do with her. She has been non-adherent on some of her psych meds (has been taking lamictal) and MS meds due to running out. Staff at her group home had found crack pipes on her and she was not allowed on the property, says this belonged to a friend, however per team pt has been using crack cocaine daily. Utox positive for amphetamines, cocaine, and cannabis. Denies alcohol abuse or withdrawal.?In belongings pt found to have substance suspicious for meth. 08/23/22- Refusing eval today. In bed, napping, no involvement in milieu. 08/25/22- [facility] 08/26/22: Pt is awake and alert but isolative. Asks for gabapentin to be restored at 100 mg TID and for seroquel to be increased to 50 mg BID scheduled for anxiety. 08/27/22: Topamax 25 mg daily Increase Gabapentin to 200 mg tid Discontinue Trazodone Remeron 7.5 mg HS B12 IM monthly Change Naprosyn to scheduled 08/29/22: Increase Mirtazapine to 15 mg HS Increase Seroquel to 75 mg bid 08/30/2022 increase nighttime Seroquel to 150 mg 08/31/2022: Increase night Seroquel to 200 mg at bedtime 09/02/22: Discontinue Doxepin Discontinue Gabapentin- Gabapentin 200 mg a.m. 400 mg HS 09/05/22 No changes today. Discharge planned for early next week. Plan: Re-start paxil, trazodone, continue lamictal. Continue assessment, engagement. Refer to addiction services. Q15 min safety checks, CV Monitor response to medications. Monitor for safety in the milieu. Discharge on stabilization. Patient seen. Chart reviewed. Discussed with team. Obtain collateral contact info?as needed I spent minutes with the patient and/or on the patient floor today, greater than?50% of which was spent counseling/coordinating care. Patient educated on: therapeutic strategies Informed Consent: understands Reason for contiued inpatient stay Substantial Risk for: rapid decompensation
[2022-09-05 18:00] VITALS: BP 119/59; PULSE 79; RESP 16; TEMP 36.2; O2SAT 97
[2022-09-05] MEDS: Mirtazapine 15 MG TABLET PO (20:56)
[2022-09-05] MEDS: QUEtiapine Fumarate 200 MG TABLET PO (20:57)
[2022-09-05] MEDS: Gabapentin 400 MG CAPSULE PO (20:57)
[2022-09-05] MEDS: hydrOXYzine HCL 25 MG TABLET PO (20:57)
[2022-09-06 06:00] VITALS: BP 112/62; PULSE 65; RESP 18; TEMP 36.5; O2SAT 98
[2022-09-06] MEDS: Omeprazole 20 MG CAPSULE.DR PO (08:09)
[2022-09-06] MEDS: Methylphenidate HCl 10 MG TABLET PO ×2 (08:09→13:26)
[2022-09-06] MEDS: Gabapentin 100 MG CAPSULE 200 MG PO (08:41)
[2022-09-06] MEDS: Topiramate 25 MG TABLET PO (08:41)
[2022-09-06] MEDS: PARoxetine HCL 40 MG TABLET PO (08:41)
[2022-09-06] MEDS: NaPROXEN 500 MG TABLET PO ×2 (08:41→19:51)
[2022-09-06] MEDS: lamoTRIgine 100 MG TABLET 200 MG PO ×2 (08:41→19:51)
[2022-09-06] MEDS: QUEtiapine Fumarate 25 MG TABLET 75 MG PO (08:42)
[2022-09-06] MEDS: Fluticasone/Vilanterol 200/25 BLST.W.DEV 1 PUFF INHALE (08:44)
[2022-09-06] MEDS: Albuterol Sulfate 90 MCG 8 GM INHALER 2 PUFF INHALE (08:44)
--- NOTE | 2022-09-06 09:48 | P.PNPSI_ITS ---
Subjective Subjective Date of Service: 09/06/22 Reason For Visit: depression w/ si Subjective Notes: Garcia Warning and Conditional Voluntary Interim History: Met with pt. Discussed with team. Per pt, she has eczema on her bilateral legs, asks for a cream. Also complains of dental pain, will order benzocaine gel. She says seroquel is not helping. Primarily wants help with sleep, says she is getting a max of 2 hours. 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 Medication Compliance: Yes Side effects from medications: No Attending Groups: Yes Review of Systems Acute medical concerns: No Medical Review of Systems: unchanged Mental Status Exam Mental Status Exam Narrative: Patient Appearance: Appropriate Patient Orientation: Person, Place, Time and Situation Level of Consciousness: Alert Patient Behavior: Appropriate, Talkative, Cooperative and Good Eye Contact Mood Description: Depressed and Angry Affect Description: Flat Patient Cognition Impaired: No Ability to Follow Directions: Good Speech Pattern: Clear, Appropriate and Spontaneous Speech Memory Description: Intact Hallucinations: None Delusions: Not Present Perceptual Disturbances: Derealization Thought Process: Rumination Thought Content: positive for [place] and positive for Circumstantial Depressive Symptoms: Increased Irritability Abnormal Motor Activity Signs and Symptoms: Restlessness Judgement: Good Diagnostics Vital Signs (24Hr): Vital Signs - 24 hr 09/05/22 18:00 09/06/22 06:00 Temperature 97.1 F 97.7 F Pulse Rate 79 65 Respiratory Rate 16 18 Blood Pressure 119/59 L 112/62 Pulse Oximetry 97 98 Oxygen Delivery Method Room Air Room Air BMI result Body Mass Index 25.4 Labs Results: 08/22/22 11:18 08/23/22 07:18 Labs: Laboratory Results - last 48 hr 09/04/22 21:47 COVID-19 ([facility]) Negative COVID-19 Clin Com See Note Medications Medications Current Medications Al Hydroxide/Mg Hydroxide (Magnesium Hydrox/Alum Hydrox 30 Ml Oral.Susp) 30 ml PO Q6H PRN PRN Reason: Heartburn/Nausea Albuterol Sulfate (Albuterol Sulfate 90 Mcg 8 Gm Inhaler) 2 puff INHALE Q6H PRN PRN Reason: Shortness Of Breath Last Admin: 09/06/22 08:44 Dose: 2 puff Cyanocobalamin (Cyanocobalamin (Vitamin B-12) 1,000 Mcg/Ml Vial) 1,000 mcg IM Q30D [facility] Last Admin: 08/27/22 21:26 Dose: 1,000 mcg Fluticasone/Vilanterol (Fluticasone/Vilanterol 200/25 Blst.W.Dev) 1 puff INHALE DAILY [facility] Last Admin: 09/06/22 08:44 Dose: 1 puff Gabapentin (Gabapentin 100 Mg Capsule) 200 mg PO DAILY [facility] Last Admin: 09/06/22 08:41 Dose: 200 mg Gabapentin (Gabapentin 400 Mg Capsule) 400 mg PO BEDTIME [facility] Last Admin: 09/05/22 20:57 Dose: 400 mg Hydroxyzine HCl (Hydroxyzine Hcl 25 Mg Tablet) 25 mg PO BEDTIME [facility] Last Admin: 09/05/22 20:57 Dose: 25 mg Hydroxyzine HCl (Hydroxyzine Hcl 25 Mg Tablet) 25 mg PO Q4H PRN PRN Reason: Anxiety Lamotrigine (Lamotrigine 100 Mg Tablet) 200 mg PO BID [facility] Last Admin: 09/06/22 08:41 Dose: 200 mg Magnesium Hydroxide (Milk Of Magnesia 30 Ml Oral.Susp) 30 ml PO DAILY PRN PRN Reason: Constipation Melatonin (Melatonin 3 Mg Tablet) 6 mg PO BEDTIME PRN PRN Reason: Insomnia Last Admin: 08/28/22 21:32 Dose: 6 mg Methylphenidate HCl (Methylphenidate Hcl 10 Mg Tablet) 10 mg PO 0700,1300 [facility] Last Admin: 09/06/22 08:09 Dose: 10 mg Mirtazapine (Mirtazapine 15 Mg Tablet) 15 mg PO BEDTIME [facility] Last Admin: 09/05/22 20:56 Dose: 15 mg Naproxen (Naproxen 500 Mg Tablet) 500 mg PO BID [facility] Last Admin: 09/06/22 08:41 Dose: 500 mg Omeprazole (Omeprazole 20 Mg Capsule.Dr) 20 mg PO DAILY@0630 [facility] Last Admin: 09/06/22 08:09 Dose: 20 mg Paroxetine HCl (Paroxetine Hcl 40 Mg Tablet) 40 mg PO DAILY [facility] Last Admin: 09/06/22 08:41 Dose: 40 mg Quetiapine Fumarate (Quetiapine Fumarate 25 Mg Tablet) 75 mg PO DAILY [facility] Last Admin: 09/06/22 08:42 Dose: 75 mg Quetiapine Fumarate (Quetiapine Fumarate 200 Mg Tablet) 200 mg PO BEDTIME [facility] Last Admin: 09/05/22 20:57 Dose: 200 mg Simethicone (Simethicone 80 Mg Tab.Chew) 80 mg PO QIDWMHS PRN PRN Reason: Gas Last Admin: 09/05/22 12:49 Dose: 80 mg Topiramate (Topiramate 25 Mg Tablet) 25 mg PO DAILY [facility] Last Admin: 09/06/22 08:41 Dose: 25 mg Allergies Allergies Allergy/AdvReac Type Severity Reaction Status Date / Time sulfamethoxazole Allergy Anaphylaxis Verified 08/23/22 09:40 [From Bactrim] trimethoprim [From Bactrim] Allergy Anaphylaxis Verified 08/23/22 09:40 Assessment & Plan Assessment & Plan (1) JOSE (generalized anxiety disorder): Status: Acute Code(s): F41.1 - Generalized anxiety disorder (2) MDD (major depressive disorder), recurrent episode, moderate: Status: Acute Code(s): F33.1 - Major depressive disorder, recurrent, moderate (3) Crack cocaine use: Status: Acute Code(s): F14.90 - Cocaine use, unspecified, uncomplicated Plan 61 y/o female with history of multiple sclerosis and MDD recurrent. Pt presented to [facility] on 08/22/2022 from a homeless care home ([facility]) with SI with plan to overdose. Precipitating fx include that her family in [place] who wants nothing to do with her. She has been non-adherent on some of her psych meds (has been taking lamictal) and MS meds due to running out. Staff at her care home had found crack pipes on her and she was not allowed on the property, says this belonged to a friend, however per team pt has been using crack cocaine daily. Utox positive for amphetamines, cocaine, and cannabis. Denies alcohol abuse or withdrawal.?In belongings pt found to have substance suspicious for meth. 08/23/22- Refusing eval today. In bed, napping, no involvement in milieu. 08/25/22- [facility] 08/26/22: Pt is awake and alert but isolative. Asks for gabapentin to be restored at 100 mg TID and for seroquel to be increased to 50 mg BID scheduled for anxiety. 08/27/22: Topamax 25 mg daily Increase Gabapentin to 200 mg tid Discontinue Trazodone Remeron 7.5 mg HS B12 IM monthly Change Naprosyn to scheduled 08/29/22: Increase Mirtazapine to 15 mg HS Increase Seroquel to 75 mg bid 08/30/2022 increase nighttime Seroquel to 150 mg 08/31/2022: Increase night Seroquel to 200 mg at bedtime 09/02/22: Discontinue Doxepin Discontinue Gabapentin- Gabapentin 200 mg a.m. 400 mg HS 09/06/22: Will increase seroquel to 300 mg HS for sleep, mood lability. Will D/C seroquel 75 mg daily to reduce polypharm and as pt is denying benefit. Plan: Re-start paxil, trazodone, continue lamictal. Continue assessment, engagement. Refer to addiction services. Q15 min safety checks, CV Monitor response to medications. Monitor for safety in the milieu. Discharge on stabilization. Patient seen. Chart reviewed. Discussed with team. Obtain collateral contact info?as needed I spent minutes with the patient and/or on the patient floor today, greater than?50% of which was spent counseling/coordinating care. Patient educated on: diagnosis, medication risk/benefits and therapeutic strategies Reason for contiued inpatient stay Substantial Risk for: med/psych decompensation
[2022-09-06] MEDS: hydrOXYzine HCL 25 MG TABLET PO ×2 (13:24→19:50)
[2022-09-06 18:00] VITALS: BP 116/57; PULSE 69; RESP 16; TEMP 36.4; O2SAT 97
[2022-09-06] MEDS: Mirtazapine 15 MG TABLET PO (19:50)
[2022-09-06] MEDS: QUEtiapine Fumarate 300 MG TABLET PO (19:51)
[2022-09-06] MEDS: Gabapentin 400 MG CAPSULE PO (19:51)
[2022-09-07 06:00] VITALS: BP 137/79; PULSE 56; RESP 18; TEMP 36.1; O2SAT 99
[2022-09-07] MEDS: Omeprazole 20 MG CAPSULE.DR PO (07:57)
[2022-09-07] MEDS: Methylphenidate HCl 10 MG TABLET PO ×2 (07:57→14:18)
[2022-09-07] MEDS: NaPROXEN 500 MG TABLET PO ×2 (08:45→20:17)
[2022-09-07] MEDS: Topiramate 25 MG TABLET PO (08:45)
[2022-09-07] MEDS: PARoxetine HCL 40 MG TABLET PO (08:45)
[2022-09-07] MEDS: lamoTRIgine 100 MG TABLET 200 MG PO ×2 (08:46→20:17)
[2022-09-07] MEDS: Albuterol Sulfate 90 MCG 8 GM INHALER 2 PUFF INHALE (08:46)
[2022-09-07] MEDS: Gabapentin 100 MG CAPSULE 200 MG PO (08:46)
[2022-09-07] MEDS: Fluticasone/Vilanterol 200/25 BLST.W.DEV 1 PUFF INHALE (08:47)
[2022-09-07] MEDS: Hydrocortisone 1 % Cream 28.35 GM TUBE 1 APPL TOPICAL ×2 (08:50→20:01)
[2022-09-07] MEDS: hydrOXYzine HCL 25 MG TABLET PO (11:53)
[2022-09-07] MEDS: Simethicone 80 MG TAB.CHEW PO (11:53)
--- NOTE | 2022-09-07 13:02 | P.PNPSI_ITS ---
Subjective Subjective Date of Service: 09/07/22 Reason For Visit: depression w/ si Subjective Notes: Garcia Warning Interim History: Met with pt, discussed with team. Pt says she is okay, has been up and down. Complains of issues falling asleep, up until 3-4am, increase in seroquel did not help. Will trial an increase in hydroxyzine for sleep.? Medication Compliance: Yes Side effects from medications: No Attending Groups: Intermittent Review of Systems Acute medical concerns: No Medical Review of Systems: unchanged Mental Status Exam Mental Status Exam Narrative: Patient Appearance: Appropriate Patient Orientation: Person, Place, Time and Situation Level of Consciousness: Alert Patient Behavior: Appropriate, Talkative, Cooperative and Good Eye Contact Mood Description: Depressed and Angry Affect Description: Flat Patient Cognition Impaired: No Ability to Follow Directions: Good Speech Pattern: Clear, Appropriate and Spontaneous Speech Memory Description: Intact Hallucinations: None Delusions: Not Present Perceptual Disturbances: Derealization Thought Process: Rumination Thought Content: positive for [place] and positive for Circumstantial Depressive Symptoms: Increased Irritability Abnormal Motor Activity Signs and Symptoms: Restlessness Judgement: Good Diagnostics Vital Signs (24Hr): Vital Signs - 24 hr 09/06/22 18:00 09/07/22 06:00 Temperature 97.5 F 96.9 F Pulse Rate 69 56 Respiratory Rate 16 18 Blood Pressure 116/57 L 137/79 Pulse Oximetry 97 99 Oxygen Delivery Method Room Air Room Air BMI result Body Mass Index 25.4 Labs Results: 08/22/22 11:18 08/23/22 07:18 Medications Medications Current Medications Al Hydroxide/Mg Hydroxide (Magnesium Hydrox/Alum Hydrox 30 Ml Oral.Susp) 30 ml PO Q6H PRN PRN Reason: Heartburn/Nausea Albuterol Sulfate (Albuterol Sulfate 90 Mcg 8 Gm Inhaler) 2 puff INHALE Q6H PRN PRN Reason: Shortness Of Breath Last Admin: 09/07/22 08:46 Dose: 2 puff Benzocaine (Benzocaine 20 % Oral Gel 9 Gm Tube) 1 appl MUCOUS MEM QID PRN PRN Reason: dental pain Cyanocobalamin (Cyanocobalamin (Vitamin B-12) 1,000 Mcg/Ml Vial) 1,000 mcg IM Q30D [facility] Last Admin: 08/27/22 21:26 Dose: 1,000 mcg Fluticasone/Vilanterol (Fluticasone/Vilanterol 200/25 Blst.W.Dev) 1 puff INHALE DAILY [facility] Last Admin: 09/07/22 08:47 Dose: 1 puff Gabapentin (Gabapentin 100 Mg Capsule) 200 mg PO DAILY [facility] Last Admin: 09/07/22 08:46 Dose: 200 mg Gabapentin (Gabapentin 400 Mg Capsule) 400 mg PO BEDTIME [facility] Last Admin: 09/06/22 19:51 Dose: 400 mg Hydrocortisone (Hydrocortisone 1 % Cream 28.35 Gm Tube) 1 appl TOPICAL TID PRN PRN Reason: eczema Last Admin: 09/07/22 08:50 Dose: 1 appl Hydroxyzine HCl (Hydroxyzine Hcl 25 Mg Tablet) 25 mg PO BEDTIME [facility] Last Admin: 09/06/22 19:50 Dose: 25 mg Hydroxyzine HCl (Hydroxyzine Hcl 25 Mg Tablet) 25 mg PO Q4H PRN PRN Reason: Anxiety Last Admin: 09/07/22 11:53 Dose: 25 mg Lamotrigine (Lamotrigine 100 Mg Tablet) 200 mg PO BID [facility] Last Admin: 09/07/22 08:46 Dose: 200 mg Magnesium Hydroxide (Milk Of Magnesia 30 Ml Oral.Susp) 30 ml PO DAILY PRN PRN Reason: Constipation Melatonin (Melatonin 3 Mg Tablet) 6 mg PO BEDTIME PRN PRN Reason: Insomnia Last Admin: 08/28/22 21:32 Dose: 6 mg Methylphenidate HCl (Methylphenidate Hcl 10 Mg Tablet) 10 mg PO 0700,1300 [facility] Last Admin: 09/07/22 07:57 Dose: 10 mg Mirtazapine (Mirtazapine 15 Mg Tablet) 15 mg PO BEDTIME [facility] Last Admin: 09/06/22 19:50 Dose: 15 mg Naproxen (Naproxen 500 Mg Tablet) 500 mg PO BID [facility] Last Admin: 09/07/22 08:45 Dose: 500 mg Omeprazole (Omeprazole 20 Mg Capsule.Dr) 20 mg PO DAILY@0630 [facility] Last Admin: 09/07/22 07:57 Dose: 20 mg Paroxetine HCl (Paroxetine Hcl 40 Mg Tablet) 40 mg PO DAILY [facility] Last Admin: 09/07/22 08:45 Dose: 40 mg Quetiapine Fumarate (Quetiapine Fumarate 300 Mg Tablet) 300 mg PO BEDTIME [facility] Last Admin: 09/06/22 19:51 Dose: 300 mg Simethicone (Simethicone 80 Mg Tab.Chew) 80 mg PO QIDWMHS PRN PRN Reason: Gas Last Admin: 09/07/22 11:53 Dose: 80 mg Topiramate (Topiramate 25 Mg Tablet) 25 mg PO DAILY [facility] Last Admin: 09/07/22 08:45 Dose: 25 mg Allergies Allergies Allergy/AdvReac Type Severity Reaction Status Date / Time sulfamethoxazole Allergy Anaphylaxis Verified 08/23/22 09:40 [From Bactrim] trimethoprim [From Bactrim] Allergy Anaphylaxis Verified 08/23/22 09:40 Assessment & Plan Assessment & Plan (1) JOSE (generalized anxiety disorder): Status: Acute Code(s): F41.1 - Generalized anxiety disorder (2) MDD (major depressive disorder), recurrent episode, moderate: Status: Acute Code(s): F33.1 - Major depressive disorder, recurrent, moderate (3) Crack cocaine use: Status: Acute Code(s): F14.90 - Cocaine use, unspecified, uncomplicated Plan 61 y/o female with history of multiple sclerosis and MDD recurrent. Pt presented to [facility] on 08/22/2022 from a homeless jail ([facility]) with SI with plan to overdose. Precipitating fx include that her family in [place] who wants nothing to do with her. She has been non-adherent on some of her psych meds (has been taking lamictal) and MS meds due to running out. Staff at her jail had found crack pipes on her and she was not allowed on the property, says this belonged to a friend, however per team pt has been using crack cocaine daily. Utox positive for amphetamines, cocaine, and cannabis. Denies alcohol abuse or withdrawal.?In belongings pt found to have substance suspicious for meth. 08/23/22- Refusing eval today. In bed, napping, no involvement in milieu. 08/25/22- [facility] 08/26/22: Pt is awake and alert but isolative. Asks for gabapentin to be restored at 100 mg TID and for seroquel to be increased to 50 mg BID scheduled for anxiety. 08/27/22: Topamax 25 mg daily Increase Gabapentin to 200 mg tid Discontinue Trazodone Remeron 7.5 mg HS B12 IM monthly Change Naprosyn to scheduled 08/29/22: Increase Mirtazapine to 15 mg HS Increase Seroquel to 75 mg bid 08/30/2022 increase nighttime Seroquel to 150 mg 08/31/2022: Increase night Seroquel to 200 mg at bedtime 09/02/22: Discontinue Doxepin Discontinue Gabapentin- Gabapentin 200 mg a.m. 400 mg HS 09/06/22: Will increase seroquel to 300 mg HS for sleep, mood lability. Will D/C seroquel 75 mg daily to reduce polypharm and as pt is denying benefit. 09/07/22: Will trial an increase in hydroxyzine to 50 mg HS for sleep, reviewed sleep hygiene Plan: Re-start paxil, trazodone, continue lamictal. Continue assessment, engagement. Refer to addiction services. Q15 min safety checks, CV Monitor response to medications. Monitor for safety in the milieu. Discharge on stabilization. Patient seen. Chart reviewed. Discussed with team. Obtain collateral contact info?as needed I spent minutes with the patient and/or on the patient floor today, greater than?50% of which was spent counseling/coordinating care. Patient educated on: medication risk/benefits and therapeutic strategies Reason for contiued inpatient stay Substantial Risk for: med/psych decompensation
[2022-09-07 18:00] VITALS: BP 136/78; PULSE 86; RESP 16; TEMP 36.4; O2SAT 99
[2022-09-07] MEDS: hydrOXYzine HCL 50 MG TABLET PO (20:17)
[2022-09-07] MEDS: Mirtazapine 15 MG TABLET PO (20:17)
[2022-09-07] MEDS: Gabapentin 400 MG CAPSULE PO (20:17)
[2022-09-07] MEDS: QUEtiapine Fumarate 300 MG TABLET PO (20:17)
[2022-09-08 06:00] VITALS: BP 149/83; PULSE 83; RESP 16; TEMP 37; O2SAT 99
[2022-09-08] MEDS: Methylphenidate HCl 10 MG TABLET PO ×2 (06:15→14:27)
[2022-09-08] MEDS: Omeprazole 20 MG CAPSULE.DR PO (06:15)
[2022-09-08] MEDS: Simethicone 80 MG TAB.CHEW PO (08:30)
[2022-09-08] MEDS: NaPROXEN 500 MG TABLET PO ×2 (08:30→22:48)
[2022-09-08] MEDS: Hydrocortisone 1 % Cream 28.35 GM TUBE 1 APPL TOPICAL (08:31)
[2022-09-08] MEDS: Topiramate 25 MG TABLET PO (08:31)
[2022-09-08] MEDS: lamoTRIgine 100 MG TABLET 200 MG PO ×2 (08:31→22:48)
[2022-09-08] MEDS: Gabapentin 100 MG CAPSULE 200 MG PO (08:31)
[2022-09-08] MEDS: PARoxetine HCL 40 MG TABLET PO (08:31)
[2022-09-08] MEDS: Albuterol Sulfate 90 MCG 8 GM INHALER 2 PUFF INHALE (08:32)
[2022-09-08] MEDS: Fluticasone/Vilanterol 200/25 BLST.W.DEV 1 PUFF INHALE (08:32)
[2022-09-08] MEDS: hydrOXYzine HCL 25 MG TABLET PO (14:27)
--- NOTE | 2022-09-08 16:55 | P.PNPSI_ITS ---
Subjective Subjective Date of Service: 09/08/22 Reason For Visit: depression w/ si Interim History: Discussed with team. Met with pt. She reports she is not good today because I was told I had to be out of here tomorrow and I have no place to go. Wants to stay longer because her Bf?s apartment was approved today, but he still has to get the keys. No family/ friends she could stay with. Also upset because today her tooth broke when she was taking a bite of something. Says she has been isolating today, I cant cry anymore tears, im all out, doesnt want to be around people. Denies benefit on increased hydroxyzine, slept a couple hours, says it was solid sleep but it wasnt enough. Asks for doxepin instead of remeron.? Medication Compliance: Yes Side effects from medications: No Attending Groups: No Review of Systems Acute medical concerns: No Medical Review of Systems: unchanged Mental Status Exam Mental Status Exam Narrative: Patient Appearance: Appropriate Patient Orientation: Person, Place, Time and Situation Level of Consciousness: Alert Patient Behavior: Appropriate, Talkative, Cooperative and Good Eye Contact Mood Description: Depressed and Angry Affect Description: Flat Patient Cognition Impaired: No Ability to Follow Directions: Good Speech Pattern: Clear, Appropriate and Spontaneous Speech Memory Description: Intact Hallucinations: None Delusions: Not Present Perceptual Disturbances: Derealization Thought Process: Rumination Thought Content: positive for [place] and positive for Circumstantial Depressive Symptoms: Increased Irritability Abnormal Motor Activity Signs and Symptoms: Restlessness Judgement: Good Diagnostics Vital Signs (24Hr): Vital Signs - 24 hr 09/07/22 18:00 09/08/22 06:00 Temperature 97.6 F 98.6 F Pulse Rate 86 83 Respiratory Rate 16 16 Blood Pressure 136/78 149/83 H Pulse Oximetry 99 99 Oxygen Delivery Method Room Air Room Air BMI result Body Mass Index 25.4 Labs Results: 08/22/22 11:18 08/23/22 07:18 Medications Medications Current Medications Al Hydroxide/Mg Hydroxide (Magnesium Hydrox/Alum Hydrox 30 Ml Oral.Susp) 30 ml PO Q6H PRN PRN Reason: Heartburn/Nausea Albuterol Sulfate (Albuterol Sulfate 90 Mcg 8 Gm Inhaler) 2 puff INHALE Q6H PRN PRN Reason: Shortness Of Breath Last Admin: 10/24/22 08:32 Dose: 2 puff Benzocaine (Benzocaine 20 % Oral Gel 9 Gm Tube) 1 appl MUCOUS MEM QID PRN PRN Reason: dental pain Cyanocobalamin (Cyanocobalamin (Vitamin B-12) 1,000 Mcg/Ml Vial) 1,000 mcg IM Q30D [facility] Last Admin: 08/27/22 21:26 Dose: 1,000 mcg Fluticasone/Vilanterol (Fluticasone/Vilanterol 200/25 Blst.W.Dev) 1 puff INHALE DAILY [facility] Last Admin: 09/08/22 08:32 Dose: 1 puff Gabapentin (Gabapentin 100 Mg Capsule) 200 mg PO DAILY [facility] Last Admin: 09/08/22 08:31 Dose: 200 mg Gabapentin (Gabapentin 400 Mg Capsule) 400 mg PO BEDTIME [facility] Last Admin: 09/07/22 20:17 Dose: 400 mg Hydrocortisone (Hydrocortisone 1 % Cream 28.35 Gm Tube) 1 appl TOPICAL TID PRN PRN Reason: eczema Last Admin: 09/08/22 08:31 Dose: 1 appl Hydroxyzine HCl (Hydroxyzine Hcl 25 Mg Tablet) 25 mg PO Q4H PRN PRN Reason: Anxiety Last Admin: 09/08/22 14:27 Dose: 25 mg Hydroxyzine HCl (Hydroxyzine Hcl 50 Mg Tablet) 50 mg PO BEDTIME [facility] Last Admin: 09/07/22 20:17 Dose: 50 mg Lamotrigine (Lamotrigine 100 Mg Tablet) 200 mg PO BID [facility] Last Admin: 09/08/22 08:31 Dose: 200 mg Magnesium Hydroxide (Milk Of Magnesia 30 Ml Oral.Susp) 30 ml PO DAILY PRN PRN Reason: Constipation Melatonin (Melatonin 3 Mg Tablet) 6 mg PO BEDTIME PRN PRN Reason: Insomnia Last Admin: 08/28/22 21:32 Dose: 6 mg Methylphenidate HCl (Methylphenidate Hcl 10 Mg Tablet) 10 mg PO 0700,1300 [facility] Last Admin: 09/08/22 14:27 Dose: 10 mg Mirtazapine (Mirtazapine 15 Mg Tablet) 15 mg PO BEDTIME [facility] Last Admin: 09/07/22 20:17 Dose: 15 mg Naproxen (Naproxen 500 Mg Tablet) 500 mg PO BID [facility] Last Admin: 09/08/22 08:30 Dose: 500 mg Omeprazole (Omeprazole 20 Mg Capsule.Dr) 20 mg PO DAILY@0630 [facility] Last Admin: 09/08/22 06:15 Dose: 20 mg Paroxetine HCl (Paroxetine Hcl 40 Mg Tablet) 40 mg PO DAILY [facility] Last Admin: 09/08/22 08:31 Dose: 40 mg Quetiapine Fumarate (Quetiapine Fumarate 300 Mg Tablet) 300 mg PO BEDTIME [facility] Last Admin: 09/07/22 20:17 Dose: 300 mg Simethicone (Simethicone 80 Mg Tab.Chew) 80 mg PO QIDWMHS PRN PRN Reason: Gas Last Admin: 09/08/22 08:30 Dose: 80 mg Topiramate (Topiramate 25 Mg Tablet) 25 mg PO DAILY [facility] Last Admin: 09/08/22 08:31 Dose: 25 mg Allergies Allergies Allergy/AdvReac Type Severity Reaction Status Date / Time sulfamethoxazole Allergy Anaphylaxis Verified 08/23/22 09:40 [From Bactrim] trimethoprim [From Bactrim] Allergy Anaphylaxis Verified 08/23/22 09:40 Assessment & Plan Assessment & Plan (1) JOSE (generalized anxiety disorder): Status: Acute Code(s): F41.1 - Generalized anxiety disorder (2) MDD (major depressive disorder), recurrent episode, moderate: Status: Acute Code(s): F33.1 - Major depressive disorder, recurrent, moderate (3) Crack cocaine use: Status: Acute Code(s): F14.90 - Cocaine use, unspecified, uncomplicated Plan 61 y/o female with history of multiple sclerosis and MDD recurrent. Pt presented to [facility] on 08/22/2022 from a homeless prison ([facility]) with SI with plan to overdose. Precipitating fx include that her family in [place] who wants nothing to do with her. She has been non-adherent on some of her psych meds (has been taking lamictal) and MS meds due to running out. Staff at her prison had found crack pipes on her and she was not allowed on the property, says this belonged to a friend, however per team pt has been using crack cocaine daily. Utox p ositive for amphetamines, cocaine, and cannabis. Denies alcohol abuse or withdrawal.?In belongings pt found to have substance suspicious for meth. 08/23/22- Refusing eval today. In bed, napping, no involvement in milieu. 08/25/22- Continue [facility] 08/26/22: Pt is awake and alert but isolative. Asks for gabapentin to be restored at 100 mg TID and for seroquel to be increased to 50 mg BID scheduled for anxiety. 08/27/22: Topamax 25 mg daily Increase Gabapentin to 200 mg tid Discontinue Trazodone Remeron 7.5 mg HS B12 IM monthly Change Naprosyn to scheduled 08/29/22: Increase Mirtazapine to 15 mg HS Increase Seroquel to 75 mg bid 08/30/2022 increase nighttime Seroquel to 150 mg 08/31/2022: Increase night Seroquel to 200 mg at bedtime 09/02/22: Discontinue Doxepin Discontinue Gabapentin- Gabapentin 200 mg a.m. 400 mg HS 09/06/22: Will increase seroquel to 300 mg HS for sleep, mood lability. Will D/C seroquel 75 mg daily to reduce polypharm and as pt is denying benefit. 09/07/22: Will trial an increase in hydroxyzine to 50 mg HS for sleep, reviewed sleep hygiene 09/08/22: D/c remeron, restart doxepin 50 mg HS for sleep Plan: Re-start paxil, trazodone, continue lamictal. Continue assessment, engagement. Refer to addiction services. Q15 min safety checks, CV Monitor response to medications. Monitor for safety in the milieu. Discharge on stabilization. Patient seen. Chart reviewed. Discussed with team. Obtain collateral contact info?as needed I spent minutes with the patient and/or on the patient floor today, greater than?50% of which was spent counseling/coordinating care. Patient educated on: diagnosis, medication risk/benefits and therapeutic strategies Reason for contiued inpatient stay Substantial Risk for: med/psych decompensation
[2022-09-08 18:00] VITALS: BP 128/66; PULSE 81; TEMP 36.3; O2SAT 95
[2022-09-08] MEDS: Ibuprofen 600 MG TABLET PO (18:59)
[2022-09-08] MEDS: Benzocaine 20 % Oral Gel 9 GM TUBE 1 APPL MUCOUS MEM (19:00)
[2022-09-08] MEDS: Doxepin HCl 25 MG CAPSULE 50 MG PO (22:47)
[2022-09-08] MEDS: hydrOXYzine HCL 50 MG TABLET PO (22:48)
[2022-09-08] MEDS: Gabapentin 400 MG CAPSULE PO (22:48)
[2022-09-08] MEDS: QUEtiapine Fumarate 300 MG TABLET PO (22:49)
[2022-09-09 06:00] VITALS: BP 127/67; PULSE 71; RESP 16; TEMP 36.7; O2SAT 96
[2022-09-09] MEDS: Omeprazole 20 MG CAPSULE.DR PO (06:18)
[2022-09-09] MEDS: Methylphenidate HCl 10 MG TABLET PO ×2 (06:18→13:06)
[2022-09-09] MEDS: Fluticasone/Vilanterol 200/25 BLST.W.DEV 1 PUFF INHALE (08:51)
[2022-09-09] MEDS: Gabapentin 100 MG CAPSULE 200 MG PO (08:52)
[2022-09-09] MEDS: Topiramate 25 MG TABLET PO (08:53)
[2022-09-09] MEDS: lamoTRIgine 100 MG TABLET 200 MG PO (08:53)
[2022-09-09] MEDS: PARoxetine HCL 40 MG TABLET PO (08:53)
[2022-09-09] MEDS: NaPROXEN 500 MG TABLET PO (08:53)
--- NOTE | 2022-10-12 18:21 | P.DS_ITS ---
DS: Providers Provider Date of Service: 09/09/22 Date of admission: 08/22/22 15:36 Date of discharge: 09/09/22 Primary care physician: Misael Physician Admitting clinician: Skye Hester Attending physician on admission: Marino Trammell Attending physician on discharge: Marino Trammell Discharging clinician: Skye Hester DS: Diagnosis Discharge Diagnosis (1) JOSE (generalized anxiety disorder): Status: Inactive (2) MDD (major depressive disorder), recurrent episode, moderate: Status: Inactive (3) Crack cocaine use: Status: Inactive DS: Medications Discharge Medications Home Medications: Home Medications Medication Instructions Recorded Confirmed fluticasone propionate 230 2 puff inhalation BID 08/22/22 08/22/22 mcg-salmeterol 21 mcg/actuation HFA inhaler (Advair HFA) lamotrigine 200 mg tablet 1 tab PO BID 08/22/22 08/22/22 naproxen 500 mg tablet 1 tab PO Q12H PRN Pain (Scale 08/22/22 08/22/22 Score 1-3) omeprazole 20 mg capsule,delayed 1 cap PO DAILY@0630 08/22/22 08/22/22 release paroxetine HCl 40 mg tablet 1 tab PO DAILY 08/22/22 08/22/22 trazodone 150 mg tablet 1 tab PO DAILY 08/22/22 08/22/22 Previous Rx's Medication Instructions Recorded albuterol sulfate 90 mcg/actuation 2 puff inhalation Q6H PRN 09/09/22 aerosol inhaler Shortness Of Breath #6.7 grams benzocaine 20 % mucosal gel 1 appl mucous membrane QID PRN 09/09/22 dental pain #9 grams benzocaine 20 % mucosal gel 1 appl mucous membrane QID PRN 09/09/22 (Anbesol (benzocaine) Maximum dental pain #0 grams Strength) cyanocobalamin (vitamin B-12) 1,000 mcg IM Q30D #0 mL 09/09/22 1,000 mcg/mL injection solution doxepin 25 mg capsule 50 mg PO BEDTIME #0 caps 09/09/22 fluticasone furoate 200 1 inh inhalation DAILY #60 ea 09/09/22 mcg-vilanterol 25 mcg/dose inhalation powder gabapentin 100 mg capsule 200 mg PO DAILY #0 caps 09/09/22 gabapentin 100 mg capsule 200 mg PO DAILY #60 caps 09/09/22 gabapentin 400 mg capsule 400 mg PO BEDTIME #0 caps 09/09/22 gabapentin 400 mg capsule 400 mg PO BEDTIME #30 caps 09/09/22 hydrocortisone 1 % topical cream 1 appl topical QID PRN eczema 09/09/22 #28.4 grams hydrocortisone 1 % topical cream 1 appl topical TID PRN eczema #0 09/09/22 grams hydroxyzine HCl 25 mg tablet 25 mg PO Q4H PRN Anxiety #0 tabs 09/09/22 hydroxyzine HCl 50 mg tablet 50 mg PO BEDTIME #0 tabs 09/09/22 hydroxyzine HCl 50 mg tablet 50 mg PO BEDTIME #30 tabs 09/09/22 lamotrigine 100 mg tablet 200 mg PO BID #120 tabs 09/09/22 (Lamictal) melatonin 10 mg capsule 10 mg PO BEDTIME PRN insomnia #30 09/09/22 caps melatonin 3 mg tablet 6 mg PO BEDTIME PRN Insomnia #0 09/09/22 tabs methylphenidate HCl 10 mg tablet 10 mg PO 0700,1300 #0 tabs 09/09/22 methylphenidate HCl 10 mg tablet 10 mg PO BID #60 tabs 09/09/22 (Ritalin) mirtazapine 15 mg tablet (Remeron) 15 mg PO BEDTIME #30 tabs 09/09/22 naproxen 500 mg tablet 500 mg PO BID #60 tabs 09/09/22 omeprazole 20 mg capsule,delayed 20 mg PO DAILY #30 caps 09/09/22 release paroxetine HCl 40 mg tablet (Paxil) 40 mg PO DAILY #30 tabs 09/09/22 quetiapine 300 mg tablet 300 mg PO BEDTIME #0 tabs 09/09/22 quetiapine 300 mg tablet (Seroquel) 300 mg PO BEDTIME #30 tabs 09/09/22 topiramate 25 mg tablet 25 mg PO DAILY #0 tabs 09/09/22 topiramate 25 mg tablet (Topamax) 25 mg PO DAILY #30 tabs 09/09/22 Mental Status Exam Mental Status Exam Patient Appearance: Appropriate Patient Orientation: Person, Place, Time and Situation Level of Consciousness: Alert Patient Behavior: Appropriate, Talkative, Cooperative and Good Eye Contact Mood Description: Flat Affect Description: Flat Patient Cognition Impaired: No Ability to Follow Directions: Good Speech Pattern: Clear, Appropriate and Spontaneous Speech Memory Description: Intact Hallucinations: None Delusions: Not Present Thought Content: positive for Circum[place] Judgement: Good DS: Summary Hospital Course Hospital Course: Admission to adult psychiatry for exacerbation of symptoms of substance abuse, depression with SI and anxiety. Pt asked to leave the detention she is in due to their team finding crack pipes and meth supplies. Pt is estranged from her family and therefore had no options for return. Gabapentin, Lamictal, Ritalin, Paxil and Seroquel were re-started. Pt reported Doxepin was not helpful-Tra zodone, Remeron were trialed. Pt was ambivalent regarding which agent was most helpful. Asked for Remeron upon discharge. Topiramate trial was initiated, however, it is too early to evaluate efficacy, although it is tolerated and pt would like to continue the trial. Pt was discharged to a detention. She and her boyfriend plan to move into an apartment in [place] next week as boyfriend has a new job. Her apartment is not ready at the time of discharge. Time spent discussing smoking cessation with patient: 3 to 10 minutes Status at Discharge Functional status at discharge: independent ambulation Overall status at discharge: patient is back to baseline Time Spent with Patient Time attestation: Total time spent providing and/or coordinating discharge services: 35 Time spent: Greater than 30 minutes Discharge Plan Discharge Anticipated Discharge Date/Time: 09/09/22 10:38 Patient Disposition: Longterm Discharge Diagnosis: MDD recurrent, JOSE, Cocaine Use Disorder Referrals: [facility] [Other] - 09/10/22 11:00 am (Intake appointment for psych and med management with Millie) [facility] [Other] - 09/09/22 2:15 pm (Meeting with Glo -special education supervisor to discuss restriction lifts. ) Physician,None [Primary Care Provider] - 1 Week Discharge Medications: New doxepin 25 mg Capsule 50 mg PO BEDTIME Qty: 0 0RF gabapentin 400 mg Capsule 400 mg PO BEDTIME Qty: 0 0RF gabapentin 100 mg Capsule 200 mg PO DAILY Qty: 0 0RF hydroxyzine HCl 25 mg Tablet 25 mg PO Q4H PRN (Reason: Anxiety) Qty: 0 0RF hydroxyzine HCl 50 mg Tablet 50 mg PO BEDTIME Qty: 0 0RF quetiapine 300 mg Tablet 300 mg PO BEDTIME Qty: 0 0RF methylphenidate HCl 10 mg Tablet 10 mg PO 0700,1300 Qty: 0 0RF Rx Instructions: Partial Fill upon patient request. topiramate 25 mg Tablet 25 mg PO DAILY Qty: 0 0RF melatonin 3 mg Tablet 6 mg PO BEDTIME PRN (Reason: Insomnia) Qty: 0 0RF hydrocortisone 1 % Cream 1 appl topical TID PRN (Reason: eczema) Qty: 0 0RF cyanocobalamin (vitamin B-12) 1,000 mcg/mL Solution 1,000 mcg IM Q30D Qty: 0 0RF Anbesol (benzocaine) Max Str 20 % Gel 1 appl mucous membrane QID PRN (Reason: dental pain) Qty: 0 0RF benzocaine 20 % gel 1 appl mucous membrane QID PRN (Reason: dental pain) Qty: 9 0RF fluticasone furoate-vilanterol 200-25 mcg/dose blister with device 1 inh inhalation DAILY Qty: 60 0RF gabapentin 100 mg capsule 200 mg PO DAILY Qty: 60 0RF gabapentin 400 mg capsule 400 mg PO BEDTIME Qty: 30 0RF hydrocortisone 1 % cream 1 appl topical QID PRN (Reason: eczema) Qty: 28.4 0RF hydroxyzine HCl 50 mg tablet 50 mg PO BEDTIME Qty: 30 0RF lamotrigine [Lamictal] 100 mg tablet 200 mg PO BID Qty: 120 0RF melatonin 10 mg capsule 10 mg PO BEDTIME PRN (Reason: insomnia) Qty: 30 0RF methylphenidate HCl [Ritalin] 10 mg tablet 10 mg PO BID Qty: 60 0RF Rx Instructions: every morning and afternoon mirtazapine [Remeron] 15 mg tablet 15 mg PO BEDTIME Qty: 30 0RF naproxen 500 mg tablet 500 mg PO BID Qty: 60 0RF omeprazole 20 mg capsule,delayed release(DR/EC) 20 mg PO DAILY Qty: 30 0RF paroxetine HCl [Paxil] 40 mg tablet 40 mg PO DAILY Qty: 30 0RF quetiapine [Seroquel] 300 mg tablet 300 mg PO BEDTIME Qty: 30 0RF topiramate [Topamax] 25 mg tablet 25 mg PO DAILY Qty: 30 0RF Continued lamotrigine 200 mg tablet 1 tab PO BID trazodone 150 mg tablet 1 tab PO DAILY omeprazole 20 mg capsule,delayed release(DR/EC) 1 cap PO DAILY@0630 paroxetine HCl 40 mg tablet 1 tab PO DAILY naproxen 500 mg tablet 1 tab PO Q12H PRN (Reason: Pain (Scale Score 1-3)) Advair HFA 230-21 mcg/actuation HFA aerosol inhaler 2 puff inhalation BID albuterol sulfate 90 mcg/actuation HFA aerosol inhaler 2 puff inhalation Q6H PRN (Reason: Shortness Of Breath) Qty: 6.7 0RF Discharge Orders: Discharge Order (Routine); Ordered 09/09/22 Ordered By: Skye Hester Diet: Advance to usual diet Activity on Discharge: As tolerated Stand Alone Forms: Patient Portal Discharge page, Community Support Care Plan Goals: Continue psychiatric medications as prescribed and follow up with outpatient referrals and PCP. Health Concerns: Relapse Plan of Treatment: Attend follow up appointments with OP psych services and PCP Patient will continue on psychotropic medication regimen for mood stability and sobriety Take medications as directed A one month supply of medication has been sent to your pharmacy Crisis Team if needed [phone] Call and or return if needed Assessment: Risk assessment at time of discharge:? Patient was interviewed prior to discharge and found to be fully oriented and without any SI or HI. Patient has insight and demonstrates good judgment in terms of wanting to pursue treatment. Patient is not in imminent risk of harm to self or others and has a safety plan that includes presenting to the closest ER or calling 911 if feeling unsafe.? Patient has been observed closely by nursing and unit staff throughout ad mission; patient has not engaged in any behaviors that suggest dangerousness to self or others and has demonstrated appropriate behaviors and impulse control Discharge Date/Time: 09/09/22 13:47
== END 2022-09-09 13:47 | disposition home or self-care (01) | DRG 885 ==
LOC: HO.ED 12:45 → HO.PM5 15:40
PROVIDERS: Physician Assistant; Registered Nurse; Admitting Provider Psychiatry & Neurology Psychiatry; Emergency Provider Emergency Medicine Emergency Medical Services; Visit Provider Clinical Nurse Specialist Psychiatric/Mental Health, Adult
DX: F33.1 Major depressive disorder, recurrent, moderate (principal); F41.1 Generalized anxiety disorder; G35 Multiple sclerosis; F17.210 Nicotine dependence, cigarettes, uncomplicated; Z20.822 Contact with and (suspected) exposure to COVID-19; Z59.01 Sheltered homelessness; Z23 Encounter for immunization; Z91.14 Patient's other noncompliance with medication regimen; Z71.6 Tobacco abuse counseling; Z88.2 Allergy status to sulfonamides; Z79.51 Long term (current) use of inhaled steroids; Z79.899 Other long term (current) drug therapy
CPT/HCPCS: 36415; 80048; 80053; 80061; 80076; 80307; 81001; 82077; 82607; 82746; 83036; 83735; 84439; 84443; 85025; 87635; 90686; 90792; 93005; 99285

== ENCOUNTER 2025-08-08 13:24 | Outpatient (AMB) | payer MEDICARE, MEDICAID, SELFPAY ==
--- NOTE | 2025-08-08 13:26 | A.OFFPC_ITS ---
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 Eczema Intake Note: eczema Mixer Driver Required: No Accompanied by: Self / Same As Patient Allergies sulfamethoxazole (From Bactrim) Allergy (Verified 08/08/25 13:26) Anaphylaxis trimethoprim (From Bactrim) Allergy (Verified 08/08/25 13:26) Anaphylaxis Tobacco use date assessed: 08/08/25 Dental Screening Dental Screen Date: 08/08/25 Did you have a dental visit in the last 12 months?: Yes Did you have a dental problem in the last 6 months where you did not have access to dental care?: No Was dental information given to patient?: Patient has dentist HPI HPI Comments History of Present Illness Details History of Present Illness The patient is a 64-year-old female presenting with eczema, ADHD, depression, anxiety, asthma, migraine, and multiple sclerosis. Eczema: - The patient reports having eczema with significant pruritus, leading to excoriations on the scalp due to stress-induced scratching. Attention Deficit Hyperactivity Disorder (ADHD): - The patient has a history of ADHD, pre viously managed with Ritalin, which she discontinued less than a year ago, resulting in decreased concentration. Depression: - The patient experiences depression and has recently started weekly therapy sessions. Anxiety: - The patient reports anxiety and is und ergoing therapy, which commenced two weeks ago. Asthma: - The patient has asthma, managed with a lbuterol for emergencies, and previously used Advair, which she has run out of. Migraine: - The patient suffers from migraines occ urring at least three times a week, previously managed with sumatriptan, which she is no longer taking. Multiple Sclerosis: - The patient has multiple sclerosis, wi th no neurologist follow-up for two years since her previous neurologist . Review of Systems - Dermatological: Reports pruritus and e xcoriations on the scalp due to eczema. - Neurological: Reports frequent migrain es, denies recent exacerbations of multiple sclerosis. - Respiratory: Reports asthma managed wi th albuterol, denies wheezing. - Psychiatric: Reports depression and an xiety, currently in therapy. 10-point ROS reviewed and negative excep t as noted in HPI Past Medical History - Eczema - Attention Deficit Hyperactivity Disord er (ADHD) - Depression - Anxiety - Asthma - Migraine - Multiple Sclerosis - Hysterectomy - Gastric bypass surgery (2002 and 2005) Health Maintenance - Mammogram: Last performed a couple of years ago, results were normal. - Colonoscopy: Last performed not long a go, results were normal. Physical Exam General: Well-appearing, in no acute distress. Vital signs: Within normal limits. HEENT: Normocephalic, atraumatic. PERRLA, EOMI. Conjunctiva clear, sclera anicteric. Oropharynx clear, mucous membranes moist. TMs intact bilaterally. Patient reports worsening vision, requiring reading glasses. Neck: Supple, no lymphadenopathy, no thyromegaly, no JVD or carotid bruits. Cardiovascular: RRR, normal S1/S2, no murmurs, rubs, or gallops. Peripheral pulses 2+ and symmetric. No edema. Patient reports lower leg pain but no swelling. Respiratory: Lungs clear to auscultation bilaterally, no wheezes, rales, or rhonchi. Normal effort. No wheezing noted upon examination. Abdomen: Soft, non-tender, non-distended. Normoactive bowel sounds. No hepatosplenomegaly, no masses. Vertical scar on the lower abdomen noted from previous surgeries (hysterectomy and gastric bypass). MSK: Full range of motion, no joint swelling or deformity. Normal gait. Skin: Warm, dry, intact. No rashes, lesions, or pallor. Eczema noted, primarily on the scalp and other areas with dry skin. Scabs present due to scratching. Neuro: Alert and oriented x3. Cranial nerves II-XII intact. Strength 5/5 throughout. Sensation intact. Reflexes 2+ symmetric. Normal coordination and gait. Patient reports memory issues, possibly related to discontinuation of Ritalin. Psych: Appropriate mood and affect. Normal judgment and insight. Reports depression and anxiety, currently attending weekly therapy sessions. Plan 1. Eczema - Prescribed Lac-Hydrin lotion and triam cinolone cream for eczema management. 2. Attention Deficit Hyperactivity Disor kenneth (Adhd) - Discussed the impact of discontinuing Ritalin on concentration and memory. 3. Depression - Patient is undergoing weekly therapy s essions. 4. Anxiety - Patient is undergoing weekly therapy s essions. 5. Asthma - Advised to continue using albuterol fo r emergencies and discussed the need for Advair refill. 6. Migraine - Prescribed sumatriptan 25 mg for migra ine management, with instructions on usage. 7. Multiple Sclerosis - Referral to neurology for further chema gement of multiple sclerosis. Discussion Notes During the visit, I discussed the management of eczema with Lac-Hydrin and triamcinolone, the impact of ADHD medication discontinuation, and the need for a neurology referral for multiple sclerosis. We also addressed migraine management with sumatriptan and asthma control with albuterol and Advair. Patient was informed and verbally consented to the use of an ambient scribe for clinic note documentation during this visit. Patient Instructions - Use Lac-Hydrin lotion and triamcinolon e cream as directed for eczema. - Take sumatriptan 25 mg for migraines a s needed, with a second dose if necessary after two hours. - Continue using albuterol for asthma em ergencies and refill Advair. - Attend weekly therapy sessions for dep ression and anxiety. - Follow up with neurology for multiple sclerosis management. [facility] Medical History Crack cocaine use MDD (major depressive disorder), recurrent episode, moderate JOSE (generalized anxiety disorder) Suicidal ideation Family History (Updated 08/08/25 @ 13:48 by Faina Chavez MA) Father No problems noted. Mother Arthritis Vertigo Social History Household Members: None Housing: Other Do you presently have visiting nurse or other home services: No Alcohol intake: current Alcohol intake frequency: holidays/special occasions only Patient Tobacco Use Status: Current everyday Tobacco user Cigarettes Per Day: 10 e-Cigarette/Vaping Use: Currently Using Second Hand Smoke Exposure: No Substance Use Type: Crack/Cocaine service: No Current occupational status: retired Sexual orientation: Straight/Heterosexual Cognitive needs: No Hearing needs: No Vision needs: Yes (reading) Questionnaire PHQ-9 Over the last 2 weeks, how often have you been bothered by any of the following problems? 1. Little interest or pleasure in doing things: more than half the days 2. Feeling down, depressed, or hopeless: nearly every day 3. Trouble falling or staying asleep, or sleeping too much: nearly every day 4. Feeling tired or having little energy: more than half the days 5. Poor appetite or overeating: more than half the days 6. Feeling bad about yourself - or that you are a failure or have let yourself or your family down: more than half the days 7. Trouble concentrating on things, such as reading the newspaper or watching television: nearly every day 8. Moving or speaking so slowly that other people could have noticed. Or the opposite - being so fidgety or restless that you have been moving around a lot more than usual: more than half the days 9. Thoughts that you would be better off or of hurting yourself in some way: more than half the days Total score: 21 Depression Screening Interpretation: Positive Depression Screening Done: Yes Source: Developed by Drs. Feliberto Guardado, Geraldine Bustos, Sherwni Steel and colleagues, with an educational diana from [employer]. Thrive Questionnaire Date Thrive assessed: 08/08/25 I am a: Patient What is your living situation today?: I choose not to answer this question Within the past 12 months, did the food you bought not last and you didn't have the money to get more?: Sometimes True Within the past 12 months, did you worry whether your food would run out before you got money to buy more?: Sometimes True Do you have trouble paying for medicines?: No Do you have trouble getting transportation to medical appointments?: No Do you have trouble paying your heating and electricity bill?: I choose not to answer this question Do you have trouble taking care of your child, family member or friend?: I choose not to answer this question Are you currently unemployed and looking for a job?: I choose not to answer this question Are you interested in more education?: No Please select the resources that you would like help with: Housing/Skilled Nursing and None Currently or been in a relationship where the following occur: No concerns reported THRIVE Score: 2 AUDIT C Alcohol Use Questionnaire (AUDIT-C) 1. How often do you have a drink containing alcohol?: Never 3. How often do you have six or more drinks on one occasion?: Never Total Score: 0 Score Reviewed/Action Taken: No JOSE-7 AMB Questionnaire JOSE-7 Date JOSE - 7 assessed: 08/08/25 Feeling nervous, anxious, or on edge: 3 = Nearly every day Not being able to stop or control worryin = More than half the days Worrying too much about different things: 2 = More than half the days Trouble relaxin = More than half the days Being so restless that it is hard to sit still: 1 = Several days Becoming easily annoyed or irritable: 2 = More than half the days Feeling afraid as if something awful might happen: 2 = More than half the days Total JOSE-7 score (0-4 normal; 5-9 mild; 10-14 moderate; 15-21 severe): 14 Source: Developed by Drs. Feliberto Guardado, Geraldine Bustos, Sherwin Steel and colleagues, with an educational diana from [employer]. Physical exam (Primary Care) BMI result Body Mass Index 34.5 Tobacco/Smoking Status: Tobacco use Status Tobacco use date assessed 08/08/25 08/08/25 13:28 Patient Tobacco Use Status Never used Tobacco 08/08/25 13:28 PHQ-9: PHQ-9 Score PHQ-9: Total score 21 08/08/25 13:28 Depression Screening Interpretation: Positive Thrive Assessment: Date of Thrive Assessment Date Thrive assessed 08/08/25 08/08/25 13:28 Currently or been in a relationship where the following occur: No concerns reported Coding Level of Care Code New Pt Level 3 (29618) Diagnoses Establishing care with new doctor, encounter for Z76. Encounter for screening, unspecified Z13.9 Counseling, unspecified Z71.9 Class 1 obesity E66.811 OJSE (generalized anxiety disorder) F41.1 MDD (major depressive disorder) F32.9 Substance abuse F19.10 Multiple sclerosis G35 ADHD F90.9 Eczema L30.9 Screening for diabetes mellitus Z13.1 Screening for lipoid disorders Z13.220 Screening for hypertension Z13.6 Moderate persistent asthma J45.40 Nicotine use Z72.0 Assessment & Plan Assessment & Plan (1) Establishing care with new doctor, encounter for: Code(s): Z76.89 - Persons encountering health services in other specified circumstances (2) Encounter for screening, unspecified: Code(s): Z13.9 - Encounter for screening, unspecified (3) Counseling, unspecified: Code(s): Z71.9 - Counseling, unspecified (4) Class 1 obesity: Code(s): E66.811 - Obesity, class 1 (5) JOSE (generalized anxiety disorder): Code(s): F41.1 - Generalized anxiety disorder (6) MDD (major depressive disorder): Code(s): F32.9 - Major depressive disorder, single episode, unspecified (7) Substance abuse: Code(s): F19.10 - Other psychoactive substance abuse, uncomplicated (8) Multiple sclerosis: Code(s): G35 - Multiple sclerosis (9) ADHD: Code(s): F90.9 - Attention-deficit hyperactivity disorder, unspecified type (10) Eczema: Code(s): L30.9 - Dermatitis, unspecified (11) Screening for diabetes mellitus: Code(s): Z13.1 - Encounter for screening for diabetes mellitus (12) Screening for lipoid disorders: Code(s): Z13.220 - Encounter for screening for lipoid disorders (13) Screening for hypertension: Code(s): Z13.6 - Encounter for screening for cardiovascular disorders (14) Moderate persistent asthma: Code(s): J45.40 - Moderate persistent asthma, uncomplicated (15) Nicotine use: Code(s): Z72.0 - Tobacco use Plan Orders: Orders Complete Blood Count Auto Diff Today Z13.9 - Encounter for screening, unspecified, Z76.89 - Persons encountering health services in other specified circumstances Hemoglobin A1c Today Z13.9 - Encounter for screening, unspecified, Z76.89 - Persons encountering health services in other specified circumstances HIV Ab/Ag Today Z13.9 - Encounter for screening, unspecified, Z76.89 - Persons encountering health services in other specified circumstances UA CC w/rflx Micro + Cult Today Z13.9 - Encounter for screening, unspecified, Z76.89 - Persons encountering health services in other specified circumstances Syphilis Screen Today Z13.9 - Encounter for screening, unspecified, Z76.89 - Persons encountering health services in other specified circumstances Comprehensive Met. Panel Today Z13.9 - Encounter for screening, unspecified, Z76.89 - Persons encountering health services in other specified circumstances Hepatitis B Surface Antibody Today Z13.9 - Encounter for screening, unspecified, Z76.89 - Persons encountering health services in other specified circumstances Hepatitis B Surface Antigen Today Z13.9 - Encounter for screening, unspecified, Z76.89 - Persons encountering health services in other specified circumstances Hepatitis C Antibody Reflex Today Z13.9 - Encounter for screening, unspecified, Z76.89 - Persons encountering health services in other specified circumstances Lipid Panel Today Z13.9 - Encounter for screening, unspecified, Z76.89 - Persons encountering health services in other specified circumstances Magnesium Today Z13.9 - Encounter for screening, unspecified, Z76.89 - Persons encountering health services in other specified circumstances Vitamin B12 and Folate Today Z13.9 - Encounter for screening, unspecified, Z76.89 - Persons encountering health services in other specified circumstances Vitamin D 1,25 dihydroxy Today Z13.9 - Encounter for screening, unspecified, Z76.89 - Persons encountering health services in other specified circumstances MM screening mammo BI Today Z12.31 - Encounter for screening mammogram for malignant neoplasm of breast Referrals Neurology Referral G35 - Multiple sclerosis Medications: New ammonium lactate 5% (Lac-Hydrin Five) 1 appl topical BID 226 grams 0RF triamcinolone acetonide 0.1% 1 appl topical DAILY 80 grams 0RF sumatriptan succinate take 1 tab at onset of headache; if no relief may repeat 1 tab after at least 2 hrs; max = 4 tabs/24 hr PO 20 tabs 0RF Changed From fluticasone propion-salmeterol 230-21 mcg/actuation (Advair HFA) 2 puffs inhalation BID To fluticasone propion-salmeterol 115-21 mcg/actuation (Advair HFA) 2 puffs inhalation BID 12 grams 0RF Refilled albuterol sulfate 90 mcg/actuation 2 puffs inhalation Q6H PRN 6.7 grams 0RF Shortness Of Breath Discontinued benzocaine 20% Discontinued Reason: Patient no longer taking 1 appl mucous membrane QID PRN 9 grams 0RF dental pain fluticasone furoate-vilanterol 200-25 mcg/dose Discontinued Reason: Patient no longer taking 1 inh inhalation DAILY 60 ea 0RF gabapentin Discontinued Reason: Patient no longer taking 200 mg (2 x 100 mg) PO DAILY 60 caps 0RF gabapentin Discontinued Reason: Stopped on Transfer 400 mg PO BEDTIME 30 caps 0RF hydrocortisone 1% Discontinued Reason: Patient no longer taking 1 appl topical QID PRN 28.4 grams 0RF eczema hydroxyzine HCl Discontinued Reason: Duplicate 50 mg PO BEDTIME 30 tabs 0RF melatonin Discontinued Reason: Patient no longer taking 10 mg PO BEDTIME PRN 30 caps 0RF insomnia mirtazapine (Remeron) Discontinued Reason: Patient no longer taking 15 mg PO BEDTIME 30 tabs 0RF naproxen Discontinued Reason: Patient no longer taking 500 mg PO BID 60 tabs 0RF omeprazole Discontinued Reason: Patient no longer taking 20 mg PO DAILY 30 caps 0RF paroxetine HCl (Paxil) Discontinued Reason: Patient no longer taking 40 mg PO DAILY 30 tabs 0RF quetiapine (Seroquel) Discontinued Reason: Patient no longer taking 300 mg PO BEDTIME 30 tabs 0RF lamotrigine (Lamictal) Discontinued Reason: Patient no longer taking 200 mg (2 x 100 mg) PO BID 120 tabs 0RF methylphenidate HCl (Ritalin) every morning and afternoon Discontinued Reason: Patient no longer taking 10 mg PO BID 60 tabs 0RF topiramate (Topamax) Discontinued Reason: Patient no longer taking 25 mg PO DAILY 30 tabs 0RF
[2025-08-08 13:30] VITALS: BP 112/80; PULSE 87; RESP 16; TEMP 36.8; O2SAT 97; BMI 34.5
--- OUTSIDE RECORDS SUMMARY | 2025-08-08 16:27 | XMS_ITS | Clinical Summary ---
Author Organization [facility] ity Address [address] [place] [address] Care Team Providers Care Blood Bank Laboratory Technologist Name Role Phone Arden Odell DO Primary Care Provider [phone] Social History Tobacco Use Types Packs/Day Years Used Date Smoking Tobacco: Never Assessed Comments Unknown Sex and Gender Information Value Date Recorded Sex Assigned at Not on file Legal Sex Female 3:28 PM EST Gender Identity Not on file Sexual Orientation Not on file Plan of Treatment Health Maintenance Due Date Last Done Comments Breast Cancer Screening 1962 DTaP,Tdap,and Td Vaccines (1 - Tdap) 1981 Cervical Cancer Screening: P ap Smear 1983 Pneumococcal Vaccine: 50+ Ye ars (1 of 1 - PCV) 2012 Zoster Vaccines (1 of 2) 2012 Depression Screening 11/16/2024 COVID-19 Vaccine (1 - 2023-2 5 season) 2025 Influenza Vaccine (#1) 2025 RSV Immunization Adult Patie nts (1 - 1-dose 75+ series) 2037 HIB Vaccines Aged Out No longer eligi ble based on patient's age to complete this topic HPV Vaccines Aged Out No longer eligi ble based on patient's age to complete this topic Hepatitis A Vaccines Aged Out No long er eligible based on patient's age to complete this topic Hepatitis B Vaccines Aged Out No long er eligible based on patient's age to complete this topic IPV Vaccines Aged Out No longer eligi ble based on patient's age to complete this topic MMR Vaccines Aged Out No longer eligi ble based on patient's age to complete this topic Meningococcal ACWY Vaccine Aged Out N o longer eligible based on patient's age to complete this topic Meningococcal B Vaccine Aged Out No l onger eligible based on patient's age to complete this topic RSV Immunization Patients Un kenneth 20 months Aged Out No longer eligible b ased on patient's age to complete this topic Varicella Vaccines Aged Out No longer eligible based on patient's age to complete this topic Care Teams Blood Bank Laboratory Technologist Relationship Specialty Start Date End Date Arden Odell DO [address] [place] [id number] PCP - General Internal Medicine 05/28/22
--- OUTSIDE RECORDS SUMMARY | 2025-08-08 16:27 | XMS_ITS | Clinical Summary ---
Author Organization [facility] Address [address] [facility] [address] [place] [address] Care Team Providers Care Rfid Manager Name Role Phone Unavailable Primary Care Provider Unavailabl e Medications * This document contains information received from the source organization and may not represent a complete record from that organization. buPROPion (Wellbutrin) 100 MG tablet Take 100 mg by mouth 3 times daily. Per [facility] med list 01/19/2025 Active cetirizine (ZyrTEC) 10 MG tablet Take 10 mg by mouth if needed each day. 01/03/2025 Active folic acid (Folvite) 1 MG tablet Take 1 tablet by mouth Once per day. 01/02/2025 Active hydrOXYzine pamoate (Vistaril) 50 MG capsule Take 50 mg by mouth every 4 (four) hours if needed for anxiety. Per [facility] med list 03/30/2025 Active QUEtiapine (SEROquel) 100 MG tablet Take 100 mg by mouth at bedtime. Per [facility] med list 03/30/2025 Active QUEtiapine (SEROquel) 25 MG tablet Take 25 mg by mouth 2 times daily. Per [facility] med list 03/30/2025 Active triamcinolone (Kenalog) 0.1 % ointment 2 times daily. Per [facility] med list 02/06/2025 Active Melatonin 5 MG capsule Take 5 mg by mouth if needed at bedtime. Active Social History Tobacco Use Types Packs/Day Years Used Date Smoking Tobacco: Never Assessed Comments Unknown Sex and Gender Information Value Date Recorded Sex Assigned at Female 03/05/2023 5:42 PM EDT Legal Sex Female 5:40 PM EDT Gender Identity Female 03/05/2023 5:42 PM EDT Sexual Orientation Straight 03/05/2023 5: 42 PM EDT Plan of Treatment Health Maintenance Due Date Last Done Comments CT Colonography 1962 Colonoscopy 1962 Colorectal Cancer Screening 1962 Depression Screening 1962 FIT DNA/Cologuard 1962 FIT 1962 FOBT 1962 Sigmoidoscopy 1962 Disability Screening 1962 Alcohol/Substance Use Screening 1974 Tobacco Screening 1974 Pap Smear 1983 Cervical Cancer Screening 1992 HPV/Cotest 1992 Mammogram 2002 Pneumococcal Vaccine: 50+ Years (2 of 2 - PCV) 2012 07/15/2010 Zoster Vaccines (1 of 2) 2012 DTaP/Tdap/Td Vaccines (2 - Td or Tdap) 06/17/2019 06/17/2009 COVID-19 Vaccine (3 - season) 2025 02/04/2022, 07/02/2021 Influenza Vaccine (#1) 2025 , 10/03/2020, 07/27/2013, Additional history exists RSV Patients and Patients Aged 60 years or older (1 - 1-dose 75+ series) 2037 HIB [...] patient's age to complete this topic Meningococcal Vaccine Aged Out No vineet francisco eligible based on patient's age to complete this topic RSV under 20 months Aged Out No longe r eligible based on patient's age to complete this topic Rotavirus Vaccines Aged Out No longer eligible based on patient's age to complete this topic
== END 2025-08-08 14:19 | disposition home or self-care (01) ==
LOC: HO.HMCFMS 13:25
PROVIDERS: PCP Student in an Organized Health Care Education/Training Program; Visit Provider Student in an Organized Health Care Education/Training Program
DX: Z76.89 Persons encountering health services in other specified circumstances (principal); Z13.9 Encounter for screening, unspecified; Z71.9 Counseling, unspecified; E66.811 Obesity, class 1; F41.1 Generalized anxiety disorder; F32.9 Major depressive disorder, single episode, unspecified; F19.10 Other psychoactive substance abuse, uncomplicated; G35 Multiple sclerosis; F90.9 Attention-deficit hyperactivity disorder, unspecified type; L30.9 Dermatitis, unspecified; Z13.1 Encounter for screening for diabetes mellitus; Z13.220 Encounter for screening for lipoid disorders; Z13.6 Encounter for screening for cardiovascular disorders; J45.40 Moderate persistent asthma, uncomplicated; Z72.0 Tobacco use

== ENCOUNTER 2025-08-08 13:24 | Outpatient (REF) | payer MEDICARE, MEDICAID, SELFPAY ==
[2025-08-08 18:37] LABS: MANUAL DIFF FLAG NO
[2025-08-08 18:39] LABS: Hematocrit 33.2 % (37.0-47.0); Hemoglobin 10.7 g/dl (12.0-16.0); Imm Gran Abs Auto 0.01 X10*3/uL (0.00-0.03); Imm Gran Pct Auto 0.2 % (0.0-0.4); Lymphocytes Absolute Auto 2.0 X10*3/uL (1.2-4.9); Mean Corpuscular HGB Conc 32.2 g/dl (31.0-35.0); Mean Corpuscular Hemoglobin 25.2 pg (27.0-33.0); Mean Corpuscular Volume 78.1 fL (80.0-98.0); NRBC Abs Auto 0.000 X10*3/uL (0.0-0.012); NRBC Pct Auto 0.0 /100WBC (0.0-0.2); Platelet Count 249 X10*3/uL (160-400); Red Blood Count 4.25 X10*6/uL (4.20-5.50); White Blood Count 5.7 X10*3/uL (4.8-10.8)
[2025-08-08 18:51] LABS: Alanine Aminotransferase 16 U/L (0-31); Albumin Level 4.3 g/dL (3.5-5.0); Alkaline Phosphatase 145 U/L (39-117); Anion Gap 12 (12-20); Aspartate Amino Transferase 30 U/L (5-31); Blood Urea Nitrogen 20 mg/dL (9-16); Calcium 9.0 mg/dL (8.4-10.2); Carbon Dioxide 22 mmol/L (22-29); Chloride 111 mmol/L (96-108); Cholesterol 176 mg/dL (<200); Estimated Glomerular Filt Rate 51; HDL Cholesterol 61 mg/dL (>40); Magnesium 2.2 mg/dL (1.6-2.6); Potassium 4.8 mmol/L (3.3-5.1); Sodium 140 mmol/L (135-145); Total Protein 6.8 g/dL (6.5-8.0); Triglycerides 85 mg/dL (<150)
[2025-08-08 18:55] LABS: Appearance Urine Clear; Glucose Urine UA Negative (Negative); PH 6.5 (5.0-9.0); Specific Gravity - Urine 1.020 (1.005-1.025); UMIC TRIGGER UACC YES
[2025-08-08 19:31] LABS: Folate 7.5 ng/mL (> or = 4.0); Vitamin B12 234 pg/mL (200-900)
[2025-08-09 09:09] LABS: HBS Num1 0.14 mIU/mL (0-7.99); HIV Num 1 0.05 S/CO (0.00-0.99); ~HepC Num1 0.07 S/CO (0.00-0.79); ~Hepatitis B Surface Antibody NONREACTIVE (Nonreactive); ~Hepatitis C Antibody Nonreactive (Nonreactive)
[2025-08-09 09:12] LABS: Syphilis Screen Nonreactive (Nonreactive)
[2025-08-09 10:01] LABS: HBsAGNum1 0.31 S/CO (0.00-0.99); Hepatitis B Surface Antigen Negative (Negative)
[2025-08-14 16:43] LABS: VITAMIN D (1,25 OH) D3 30 pg/mL; Vit D (1,25-Dihydroxy) Total 30 pg/mL (18-72); Vitamin D (1,25 OH) D2 <8 pg/mL
== END 2025-08-08 13:25 | disposition home or self-care (01) ==
LOC: HO.HKASLDS 13:24
PROVIDERS: PCP Student in an Organized Health Care Education/Training Program; Visit Provider Student in an Organized Health Care Education/Training Program
DX: Z76.89 Persons encountering health services in other specified circumstances (principal); Z13.9 Encounter for screening, unspecified; Z13.1 Encounter for screening for diabetes mellitus; Z13.220 Encounter for screening for lipoid disorders; Z13.6 Encounter for screening for cardiovascular disorders; Z71.9 Counseling, unspecified; E66.811 Obesity, class 1; G35 Multiple sclerosis; F41.1 Generalized anxiety disorder; F32.9 Major depressive disorder, single episode, unspecified; F19.10 Other psychoactive substance abuse, uncomplicated; F90.9 Attention-deficit hyperactivity disorder, unspecified type; L30.9 Dermatitis, unspecified; J45.40 Moderate persistent asthma, uncomplicated; F17.210 Nicotine dependence, cigarettes, uncomplicated; Z68.34 Body mass index [BMI] 34.0-34.9, adult
CPT/HCPCS: 36415; 80053; 80061; 81001; 82607; 82652; 82746; 83036; 83735; 85025; 86706; 86780; 86803; 87340; 87389; 99202

== ENCOUNTER 2025-08-22 09:49 | Outpatient (AMB) | payer MEDICARE, MEDICAID, SELFPAY ==
[2025-08-22 09:50] VITALS: BP 125/60; PULSE 84; RESP 16; TEMP 36.4; O2SAT 98; BMI 34.1
--- NOTE | 2025-08-22 09:50 | MHC.PC.OV ---
Vital Signs 08/22/25 09:50 Height 5 ft 2.6 in Weight 190 lb BMI 34.1 BP 125/60 Blood Pressure Location Lt brachial Position Sitting Respiration 16 Pulse 84 Pulse Source Pulse Oximeter Temp 97.6 F Temp Source Oral Pulse Oximetry (%) 98 Oxygen Delivery Method Room Air Intake Visit Reasons: 2 week follow up Intake Note: eczema Awning Installer Required: No Accompanied by: Self / Same As Patient Allergies sulfamethoxazole (From Bactrim) Allergy (Verified 08/22/25 09:50) Anaphylaxis trimethoprim (From Bactrim) Allergy (Verified 08/22/25 09:50) Anaphylaxis Tobacco use date assessed: 08/08/25 Dental Screening Dental Screen Date: 08/08/25 Did you have a dental visit in the last 12 months?: Yes Did you have a dental problem in the last 6 months where you did not have access to dental care?: No Was dental information given to patient?: Patient has dentist HPI HPI Comments History of Present Illness Details History of Present Illness The patient is a 64-year-old female presenting for asthma medication refills and lab results Asthma: - The patient requires an albuterol inhaler for emergency use, which was not refilled previously. Iron Deficiency Anemia: - The patient has a history of iron deficiency anemia, previously managed with infusions. - Current lab results indicate low hemoglobin and abnormal red blood cell morphology. Prediabetes: - The patient's hemoglobin A1c is 5.9%, indicating prediabetes. - The patient is advised to reduce carbohydrate and sugar intake. Vitamin B12 Deficiency: - The patient has a low vitamin B12 level of 234, requiring supplementation. Review of Systems - Musculoskeletal: Reports knee pain, particularly when using stairs. - Respiratory: Reports need for albuterol inhaler for asthma management. - Neurological: Reports migraine, denies recent episodes. - Endocrine: Reports awareness of prediabetes diagnosis. 10-point ROS reviewed and negative except as noted in HPI Past Medical History - Asthma - Eczema - Attention Deficit Hyperactivity Disorder (ADHD) - Depression - Anxiety - Migraine - Multiple Sclerosis - Iron Deficiency Anemia Health Maintenance - Advised to reduce carbohydrate and sugar intake to manage prediabetes. - Recommended vitamin B12 supplementation due to deficiency. Physical Exam General: Well-appearing, in no acute distress. Vital signs: Within normal limits. HEENT: Normocephalic, atraumatic. PERRLA, EOMI. Conjunctiva clear, sclera anicteric. Oropharynx clear, mucous membranes moist. TMs intact bilaterally. Neck: Supple, no lymphadenopathy, no thyromegaly, no JVD or carotid bruits. Cardiovascular: RRR, normal S1/S2, no murmurs, rubs, or gallops. Peripheral pulses 2+ and symmetric. No edema. Respiratory: Lungs clear to auscultation bilaterally, no wheezes, rales, or rhonchi. Normal effort. Abdomen: Soft, non-tender, non-distended. Normoactive bowel sounds. No hepatosplenomegaly, no masses. MSK: Full range of motion, no joint swelling or deformity. Normal gait. Skin: Warm, dry, intact. No rashes, lesions, or pallor. Neuro: Alert and oriented x3. Cranial nerves II-XII intact. Strength 5/5 throughout. Sensation intact. Reflexes 2+ symmetric. Normal coordination and gait. Psych: Appropriate mood and affect. Normal judgment and insight. Plan . Asthma - Refill albuterol inhaler for emergency use. . Iron Deficiency Anemia - Initiate oral iron supplementation and refer to hematology for possible infusions. . Prediabetes - Advise dietary modifications to reduce carbohydrate and sugar intake. . Vitamin B12 Deficiency - Prescribe sublingual vitamin B12 supplementation. . ADHD Behavioral medicine referral she has not seemed behavioral therapy and is currently requesting to be placed back on Ritalin Discussion Notes I discussed with the patient the importance of managing her prediabetes through dietary changes, specifically reducing carbohydrate and sugar intake. We also talked about the need for vitamin B12 supplementation due to her deficiency. I advised her to continue using her albuterol inhaler for asthma management and to follow up with hematology for her iron deficiency anemia. Additionally, I recommended a referral to behavioral health for further assessment of her ADHD and potential medication adjustments. Patient was informed and verbally consented to the use of an ambient scribe for clinic note documentation during this visit. Patient Instructions - Take vitamin B12 supplement daily as prescribed. - Use albuterol inhaler as needed for asthma symptoms. - Follow up with hematology for iron infusions. - Reduce intake of carbohydrates and sugars to manage prediabetes. - Attend behavioral health referral for ADHD assessment. Total time spent caring for the patient today was 30 minutes. This includes time spent before the visit reviewing the chart, time spent documenting, and time spent reviewing laboratory results, diagnostic imaging, medications, performing a medically necessary evaluation, counseling on diagnoses, care coordination, ordering appropriate tests, ordering appropriate medications, reporting test results [facility] Medical History (Updated 08/22/25 @ 10:10 by Beni Woods MD) ADHD (attention deficit hyperactivity disorder) Chronic anemia Crack cocaine use MDD (major depressive disorder), recurrent episode, moderate JOSE (generalized anxiety disorder) Suicidal ideation Family History Father No problems noted. Mother Arthritis Vertigo Social History Household Members: None Housing: Other Do you presently have visiting nurse or other home services: No Alcohol intake: current Alcohol intake frequency: holidays/special occasions only Patient Tobacco Use Status: Current everyday Tobacco user Cigarettes Per Day: 10 e-Cigarette/Vaping Use: Currently Using Second Hand Smoke Exposure: No Substance Use Type: Crack/Cocaine service: No Current occupational status: retired Sexual orientation: Straight/Heterosexual Cognitive needs: No Hearing needs: No Vision needs: Yes (reading) Questionnaire PHQ-9 Over the last 2 weeks, how often have you been bothered by any of the following problems? 1. Little interest or pleasure in doing things: more than half the days 2. Feeling down, depressed, or hopeless: nearly every day 3. Trouble falling or staying asleep, or sleeping too much: nearly every day 4. Feeling tired or having little energy: more than half the days 5. Poor appetite or overeating: more than half the days 6. Feeling bad about yourself - or that you are a failure or have let yourself or your family down: more than half the days 7. Trouble concentrating on things, such as reading the newspaper or watching television: nearly every day 8. Moving or speaking so slowly that other people could have noticed. Or the opposite - being so fidgety or restless that you have been moving around a lot more than usual: more than half the days 9. Thoughts that you would be better off or of hurting yourself in some way: more than half the days Total score: 21 Depression Screening Interpretation: Positive Depression Screening Done: Yes Source: Developed by Drs. Feliberto Guardado, Geraldine B.Sherwin Basilio and colleagues, with an educational diana from [employer]. Thrive Questionnaire Date Thrive assessed: 08/08/25 I am a: Patient What is your living situation today?: I choose not to answer this question Within the past 12 months, did the food you bought not last and you didn't have the money to get more?: Sometimes True Within the past 12 months, did you worry whether your food would run out before you got money to buy more?: Sometimes True Do you have trouble paying for medicines?: No Do you have trouble getting transportation to medical appointments?: No Do you have trouble paying your heating and electricity bill?: I choose not to answer this question Do you have trouble taking care of your child, family member or friend?: I choose not to answer this question Are you currently unemployed and looking for a job?: I choose not to answer this question Are you interested in more education?: No Currently or been in a relationship where the following occur: No concerns reported THRIVE Score: 2 AUDIT C Alcohol Use Questionnaire (AUDIT-C) 1. How often do you have a drink containing alcohol?: Never 3. How often do you have six or more drinks on one occasion?: Never Total Score: 0 Score Reviewed/Action Taken: No JOSE-7 AMB Questionnaire JOSE-7 Date JOSE - 7 assessed: 08/08/25 Feeling nervous, anxious, or on edge: 3 = Nearly every day Not being able to stop or control worryin = More than half the days Worrying too much about different things: 2 = More than half the days Trouble relaxin = More than half the days Being so restless that it is hard to sit still: 1 = Several days Becoming easily annoyed or irritable: 2 = More than half the days Feeling afraid as if something awful might happen: 2 = More than half the days Total JOSE-7 score (0-4 normal; 5-9 mild; 10-14 moderate; 15-21 severe): 14 Source: Developed by Drs. Feliberto Guardado, Sherwin Edwards and colleagues, with an educational diana from [employer]. Physical exam (Primary Care) Vital Signs: Last Vital Signs Temp 97.6 F 08/22/25 09:50 Pulse 84 08/22/25 09:50 Resp 16 08/22/25 09:50 BP 125/60 08/22/25 09:50 Pulse Ox 98 08/22/25 09:50 Oxygen Delivery Method Room Air 08/22/25 09:50 BMI result Body Mass Index 34.1 Tobacco/Smoking Status: Tobacco use Status Tobacco use date assessed 08/08/25 08/22/25 09:51 Patient Tobacco Use Status Current everyday Tobacco 08/22/25 09:51 e-Cigarette/Vaping Use Currently Using 08/22/25 09:51 PHQ-9: PHQ-9 Score PHQ-9: Total score 21 08/22/25 10:01 Depression Screening Interpretation: Positive Thrive Assessment: Date of Thrive Assessment Date Thrive assessed 08/08/25 08/22/25 09:51 Currently or been in a relationship where the following occur: No concerns reported Coding Level of Care Code Est Pt Level 4 (50504) Diagnoses ADHD (attention deficit hyperactivity disorder) F90.9 Chronic anemia D64.9 Mild intermittent asthma J45.20 Iron deficiency anemia D50.9 Prediabetes R73.03 Vitamin B12 deficiency E53.8 Insomnia G47.00 Assessment & Plan Assessment & Plan (1) ADHD (attention deficit hyperactivity disorder): Code(s): F90.9 - Attention-deficit hyperactivity disorder, unspecified type Category: Medical (2) Chronic anemia: Code(s): D64.9 - Anemia, unspecified Category: Medical (3) Mild intermittent asthma: Code(s): J45.20 - Mild intermittent asthma, uncomplicated (4) Iron deficiency anemia: Code(s): D50.9 - Iron deficiency anemia, unspecified (5) Prediabetes: Code(s): R73.03 - Prediabetes (6) Vitamin B12 deficiency: Code(s): E53.8 - Deficiency of other specified B group vitamins (7) Insomnia: Code(s): G47.00 - Insomnia, unspecified Plan Orders: Referrals Hematology & Oncology Referral D64.9 - Anemia, unspecified Behavioral Health Referral F90.9 - Attention-deficit hyperactivity disorder, unspecified type Medications: New ascorbic acid (vitamin C) 500 mg PO DAILY 90 tabs 0RF mecobalamin (vitamin B12) 5,000 mcg PO DAILY 90 tabs 0RF ferrous sulfate 325 mg PO DAILY 90 tabs 0RF Refilled albuterol sulfate 90 mcg/actuation 2 puffs inhalation Q6H PRN 6.7 grams 0RF Shortness Of Breath
--- OUTSIDE RECORDS SUMMARY | 2025-08-22 11:19 | XMS_ITS | Clinical Summary ---
Author Organization [facility] ity Address [address] [place] [address] Care Team Providers Care Co Founder And Chairman Name Role Phone Arden Odell DO Primary Care Provider [phone] Social History Tobacco Use Types Packs/Day Years [...] age to complete this topic Care Teams Co Founder And Chairman Relationship Specialty Start Date End Date Arden Odell DO [address] [place] [phone] PCP - General Internal Medicine 05/28/22
--- OUTSIDE RECORDS SUMMARY | 2025-08-22 11:19 | XMS_ITS | Clinical Summary ---
Author Organization [employer] Address [address] [facility] [address] [place] [address] Care Team Providers Care Director Equipment Name Role Phone Unavailable Primary Care Provider [...]
== END 2025-08-22 10:14 | disposition home or self-care (01) ==
LOC: HO.HMCFMS 09:49
PROVIDERS: PCP Student in an Organized Health Care Education/Training Program; Visit Provider Student in an Organized Health Care Education/Training Program
DX: F90.9 Attention-deficit hyperactivity disorder, unspecified type (principal); D64.9 Anemia, unspecified; J45.20 Mild intermittent asthma, uncomplicated; D50.9 Iron deficiency anemia, unspecified; R73.03 Prediabetes; E53.8 Deficiency of other specified B group vitamins; G47.00 Insomnia, unspecified

== ENCOUNTER → 2025-08-22 09:49 | Outpatient (BNVA) | payer MEDICARE, MEDICAID, SELFPAY | PROVIDERS: PCP Student in an Organized Health Care Education/Training Program; Visit Provider Student in an Organized Health Care Education/Training Program | DX: F90.9 Attention-deficit hyperactivity disorder, unspecified type (principal); D64.9 Anemia, unspecified; J45.20 Mild intermittent asthma, uncomplicated; D50.9 Iron deficiency anemia, unspecified; R73.03 Prediabetes; E53.8 Deficiency of other specified B group vitamins; G47.00 Insomnia, unspecified; Z13.31 Encounter for screening for depression | CPT/HCPCS: 96127; 99212 ==

== ENCOUNTER 2025-10-18 09:10 | Outpatient (AMB) | payer MEDICARE, MEDICAID, SELFPAY ==
--- NOTE | 2025-10-18 09:31 | AM.OFFWIN_ITS ---
Intake Vital Signs 10/18/25 09:35 Height 5 ft 2.5 in Weight 204 lb BMI 36.7 BP 129/64 Blood Pressure Location Lt brachial Position Sitting Respiration 17 Pulse 75 Pulse Source Pulse Oximeter Temp 97.6 F Temp Source Oral Pulse Oximetry (%) 98 Oxygen Delivery Method Room Air Intake Visit Reasons: EP - Bilateral Lower Extremity Edema/Pain Patient Tobacco Use Status: Current everyday Tobacco user Allergies sulfamethoxazole (From Bactrim) Allergy (Verified 10/18/25 09:40) Anaphylaxis trimethoprim (From Bactrim) Allergy (Verified 10/18/25 09:40) Anaphylaxis HPI HPI Comments History of Present Illness Details History of Present Illness - The patient is a 65 year old individua l with past med hx of MS, anemia, ADHD, crack cocaine use presenting with bilateral leg and foot swelling that began acutely three days ago. - The patient describes the swelling as painful, feeling as if the skin is going to rip open, and reports being unable to put on socks. - This is a new symptom that has never o ccurred before. - The patient denies any history of hear t failure, blood clots, or previous use of diuretics. - A prior echocardiogram was reportedly normal, although not recent. - The patient reports taking guanfacine which was started recently. - The patient denies any other new medic ations. - The patient smokes tobacco. - The patient denies any active cancers, recent surgeries, or long plane flights. She denies any previous blood clots or a famiy history of blood clots. 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 - She denies injection any street drugs and states she stopped smoking crack in January so she does not use any drugs at all and has never injected drugs. Review of Systems - Constitutional: Denies fevers, notable fatigue. - Cardiovascular: Denies personal histor y of heart failure or blood clots. - Extremities: Reports bilateral leg and foot swelling for 3 days, associated with a painful sensation of the skin stretching. - Neurological: Reports a history of Mul tiple Sclerosis. All systems reviewed and are unremarkable except as noted in HPI Physical Exam General: Cooperative, healthy appearing, comfortable, no acute distress and well developed Orientation: Patient oriented x3 Limitations: No limitations Head: Normal to inspection Ears: Hearing grossly normal bilaterally Nose: Normal External nose present Face and sinus: Normal facial exam Eyes: Appearance normal, both eyes and all related structures Neck: Normal visual inspection and Yes full ROM Respiratory: Clear to auscultation bilaterally. Normal respiratory effort and able to speak in complete sentences. Cardiac: regular rate and rhythm, normal s1 and s2, no m/r/g Skin: No rashes or lesions noted Neuro: Patient oriented x3 Extremities: trace pitting edema bilateral lower extremities, tense skin, no warmth or erythema noted, no ecchymosis or skin color changes noted. [facility] Medical History (Updated 10/18/25 @ 09:55 by Estephania Riley PA-C) Bilateral lower extremity pain ADHD (attention deficit hyperactivity disorder) Chronic anemia Crack cocaine use MDD (major depressive disorder), recurrent episode, moderate JOSE (generalized anxiety disorder) Suicidal ideation Family History Father No problems noted. Mother Arthritis Vertigo Social History Household Members: None Housing: Other Do you presently have visiting nurse or other home services: No Alcohol intake: current Alcohol intake frequency: holidays/special occasions only Patient Tobacco Use Status: Current everyday Tobacco user Cigarettes Per Day: 10 e-Cigarette/Vaping Use: Currently Using Second Hand Smoke Exposure: No Substance Use Type: Crack/Cocaine service: No Current occupational status: retired Sexual orientation: Straight/Heterosexual Cognitive needs: No Hearing needs: No Vision needs: Yes (reading) Physical Exam Vital Signs: Last Vital Signs Temp 97.6 F 10/18/25 09:35 Pulse 75 10/18/25 09:35 Resp 17 10/18/25 09:35 BP 129/64 10/18/25 09:35 Pulse Ox 98 10/18/25 09:35 Oxygen Delivery Method Room Air 10/18/25 09:35 BMI result Body Mass Index 36.7 Assessment & Plan Assessment & Plan (1) Bilateral lower extremity edema: Code(s): R60.0 - Localized edema (2) Bilateral lower extremity pain: Code(s): M79.604 - Pain in right leg; M79.605 - Pain in left leg (3) Bilateral lower extremity edema: Code(s): R60.0 - Localized edema Plan Patient was informed and verbally consented to the use of an ambient scribe for clinic note documentation during this visit. Bilateral Lower Extremity Edema and pain - The patient presents with acute bilateral leg swelling, and the differential diagnosis includes deep vein thrombosis (DVT), heart failure, renal issues (nephrotic syndrome), liver issue (cirrhosis, albumin), hypothyroidism. Will get tsh, cmp and liver panel to rule out renal or albumin or thyroid issues. No cellulitis or other signs of infection noted, no new medications recently besides Guanfacine which does not typically cause peripheral edema. - An ultrasound of the legs will be ordered to rule out DVT, scheduled for 2pm at [facility]. - Patient will get labs done today and results will be communicated when available. - If she experiences any acute shortness of breath, worsening edema or pain, she should go to the ED. Orders: Orders US venous duplex LE BI Today M79.604 - Pain in right leg, M79.605 - Pain in left leg, R60.0 - Localized edema TSH reflex Free T4 Today R60.0 - Localized edema Complete Blood Count Auto Diff Today D64.9 - Anemia, unspecified, R60.0 - Localized edema NT Pro B Type Natriuretic Pept Today M79.604 - Pain in right leg, M79.605 - Pain in left leg, R60.0 - Localized edema Comprehensive Met. Panel Today D64.9 - Anemia, unspecified, R60.0 - Localized edema Coding Level of Care Code Est Pt Level 4 (28349) Diagnoses Bilateral lower extremity edema R60.0 Bilateral lower extremity pain M79.604; M79.605
[2025-10-18 09:35] VITALS: BP 129/64; PULSE 75; RESP 17; TEMP 36.4; O2SAT 98; BMI 36.7
--- OUTSIDE RECORDS SUMMARY | 2025-10-18 09:50 | XMS_ITS | Clinical Summary ---
Author Organization [employer] Address [address] [facility] [address] [place] [address] Care Team Providers Care Sandblast Operator Name Role Phone Unavailable Primary Care Provider [...]
== END 2025-10-18 10:22 | disposition home or self-care (01) ==
LOC: HO.HMCWIS 09:10
PROVIDERS: PCP Student in an Organized Health Care Education/Training Program; Visit Provider Physician Assistant
DX: R60.0 Localized edema (principal); M79.604 Pain in right leg; M79.605 Pain in left leg

== ENCOUNTER 2025-10-18 14:02 | Outpatient (REF) | payer MEDICARE, MEDICAID, SELFPAY ==
--- NOTE | ~2025-10-18 | US_ITS ---
EXAMINATION: US TRIPLEX LOWER EXTREMITY, BILATERAL CLINICAL INFORMATION: Edema, lower extremity COMPARISON: None available. TECHNIQUE: Color-flow triplex imaging with spectral analysis and compression Doppler were performed on the bilateral lower extremities. FINDINGS: Respiratory variation, normal compression and augmented flow are demonstrated in the interrogated common femoral vein, superficial femoral vein, profunda femoral vein, popliteal vein and midcalf peroneal and posterior tibial venous segments both lower extremities. There is no Fernandez's cyst. Edema pattern in the soft tissues without fluid collections. US/US venous duplex LE BI IMPRESSION: No acute deep venous thrombosis interrogated veins of the lower extremity. Negative for DVT. Electronically signed by: Rick Jenkins MD 10/18/2025 03:09 PM [facility]
--- OUTSIDE RECORDS SUMMARY | 2025-10-18 16:52 | XMS_ITS | Clinical Summary ---
Author Organization [facility] ity Address [address] [place] [address] Care Team Providers Care Baker Operator Automatic Name Role Phone Arden Odell DO Primary Care Provider [phone] Social History Tobacco Use Types Packs/Day Years [...] Depression Screening 11/16/2024 COVID-19 Vaccine (1 - 2024-2 6 season) 2025 Influenza Vaccine (#1) 2025 RSV [...] age to complete this topic Care Teams Baker Operator Automatic Relationship Specialty Start Date End Date Arden Odell DO [address] [place] [phone] PCP - General Internal Medicine 05/28/22
== END 2025-10-18 14:03 | disposition home or self-care (01) ==
LOC: HO.US 14:02
PROVIDERS: PCP Student in an Organized Health Care Education/Training Program; Visit Provider Physician Assistant
DX: R60.0 Localized edema (principal); M79.604 Pain in right leg; M79.605 Pain in left leg; D64.9 Anemia, unspecified
CPT/HCPCS: 93970; 99212

== ENCOUNTER → 2025-10-18 14:07 | Outpatient (BNV) | payer MEDICARE, MEDICAID, SELFPAY | PROVIDERS: PCP Student in an Organized Health Care Education/Training Program; Visit Provider Radiology Diagnostic Radiology | DX: R60.0 Localized edema (principal) | CPT/HCPCS: 93970 ==

== ENCOUNTER 2025-10-19 08:49 | Outpatient (REF) | payer MEDICARE, MEDICAID, SELFPAY ==
[2025-10-19 09:04] LABS: MANUAL DIFF FLAG NO
[2025-10-19 09:22] LABS: Hematocrit 31.2 % (37.0-47.0); Hemoglobin 9.5 g/dl (12.0-16.0); Imm Gran Abs Auto 0.02 X10*3/uL (0.00-0.03); Imm Gran Pct Auto 0.3 % (0.0-0.4); Lymphocytes Absolute Auto 1.9 X10*3/uL (1.2-4.9); Mean Corpuscular HGB Conc 30.4 g/dl (31.0-35.0); Mean Corpuscular Hemoglobin 23.5 pg (27.0-33.0); Mean Corpuscular Volume 77.0 fL (80.0-98.0); NRBC Abs Auto 0.000 X10*3/uL (0.0-0.012); NRBC Pct Auto 0.0 /100WBC (0.0-0.2); Platelet Count 239 X10*3/uL (160-400); Red Blood Count 4.05 X10*6/uL (4.20-5.50); White Blood Count 6.4 X10*3/uL (4.8-10.8)
[2025-10-19 10:01] LABS: Alanine Aminotransferase 17 U/L (0-31); Albumin Level 4.3 g/dL (3.5-5.0); Alkaline Phosphatase 141 U/L (39-117); Anion Gap 10 (12-20); Aspartate Amino Transferase 18 U/L (5-31); Blood Urea Nitrogen 14 mg/dL (9-16); Calcium 9.3 mg/dL (8.4-10.2); Carbon Dioxide 24 mmol/L (22-29); Chloride 113 mmol/L (96-108); Estimated Glomerular Filt Rate 54; Potassium 4.5 mmol/L (3.3-5.1); Sodium 142 mmol/L (135-145); Total Protein 6.9 g/dL (6.5-8.0)
[2025-10-19 10:07] LABS: NT Pro B Type Natriuretic Pept 924.1 pg/mL (<300)
== END 2025-10-19 08:50 | disposition home or self-care (01) ==
LOC: HO.LAB 08:49
PROVIDERS: PCP Student in an Organized Health Care Education/Training Program; Visit Provider Physician Assistant
DX: R60.0 Localized edema (principal); M79.604 Pain in right leg; M79.605 Pain in left leg; D64.9 Anemia, unspecified
CPT/HCPCS: 36415; 80053; 83880; 84443; 85025

== ENCOUNTER 2025-10-25 11:27 | Outpatient (AMB) | payer MEDICARE, MEDICAID, SELFPAY ==
--- NOTE | 2025-10-25 11:38 | AM.OFFWIN_ITS ---
Intake Vital Signs 10/25/25 11:44 10/25/25 11:52 Height 5 ft 2.5 in Weight 203 lb BMI 36.5 BP 110/55 L 111/61 Blood Pressure Location Lt brachial Lt brachial Position Sitting Sitting Pulse 80 Pulse Source Pulse Oximeter Temp 98 F Temp Source Oral Pulse Oximetry (%) 96 Oxygen Delivery Method Room Air Intake Visit Reasons: EP-Bilateral Lower Extremity Edema Intake Note: EP complains of bilateral lower extremity edema. 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 - Recent laboratory tests from the previ ous week revealed an elevated B-type natriuretic peptide (BNP), suggestive of heart failure. - She has a remote history of taking diu retics but hasn't taken them in years. - The patient reports fatigue but denies shortness of breath. Review of Systems - Constitutional: Reports fatigue. - Respiratory: Denies dyspnea. All systems reviewed and are unremarkable except as noted in HPI Physical Exam General: Cooperative, healthy appearing, comfortable, no acute distress and well developed Orientation: Patient oriented x3 Limitations: No limitations Head: Normal to inspection Ears: Hearing grossly normal bilaterally Nose: Normal External nose present Face and sinus: Normal facial exam Eyes: Appearance normal, both eyes and all related structures Neck: Normal visual inspection and Yes full ROM Respiratory: Normal respiratory effort and able to speak in complete sentences. Clear to auscultation throughout, no wheezes, rales and rhonchi. Cardiac: Regular rate and rhythm, Normal S1 and S2, no murmurs, rubs or gallops Skin: No rashes or lesions noted Neuro: Patient oriented x3, gait normal Extremities: Bilateral trace edema [facility] Medical History (Updated 10/18/25 @ 09:55 by Estephania Riley PA-C) Bilateral lower extremity pain ADHD (attention deficit hyperactivity disorder) Chronic anemia Crack cocaine use MDD (major depressive disorder), recurrent episode, moderate JOSE (generalized anxiety disorder) Suicidal ideation Family History Father No problems noted. Mother Arthritis Vertigo Social History Household Members: None Housing: Other Do you presently have visiting nurse or other home services: No Alcohol intake: current Alcohol intake frequency: holidays/special occasions only Patient Tobacco Use Status: Current everyday Tobacco user Cigarettes Per Day: 10 e-Cigarette/Vaping Use: Currently Using Second Hand Smoke Exposure: No Substance Use Type: Crack/Cocaine service: No Current occupational status: retired Sexual orientation: Straight/Heterosexual Cognitive needs: No Hearing needs: No Vision needs: Yes (reading) Review of Systems Const All systems reviewed & are unremarkable except as noted in HPI and below Physical Exam Vital Signs: Last Vital Signs Temp 98 F 10/25/25 11:44 Pulse 80 10/25/25 11:44 BP 111/61 10/25/25 11:52 Pulse Ox 96 10/25/25 11:44 Oxygen Delivery Method Room Air 10/25/25 11:44 BMI result Body Mass Index 36.5 Assessment & Plan Assessment & Plan (1) Bilateral lower extremity pain: Code(s): M79.604 - Pain in right leg; M79.605 - Pain in left leg Plan: Assessment and Plan Bilateral lower extremity edema secondary to suspected heart failure The patient's presentation of bilateral leg swelling, in conjunction with a recently elevated B-type natriuretic peptide (BNP) from labs last week, is indicative of new onset of heart failure. The patient currently denies dyspnea and her lungs are clear to auscultation, which suggests no acute pulmonary edema at this time. Given the risks of hypotension and syncope in a diuretic-naive patient, outpatient initiation without monitoring was advised against. The patient was presented with two options: either seek treatment in an emergency department for monitored diuretic administration or wait for her follow-up appointment with her primary care physician on the . She was instructed to go to the emergency department immediately if she experiences any shortness of breath. She requested a medical note to be excused for naps during group activities at her residential facility. Advised to ask her PCP at her appt on 11/03 as we do not write these notes at the [facility]. Patient was informed and verbally consented to the use of an ambient scribe for clinic note documentation during this visit. Medications: Refilled albuterol sulfate 90 mcg/actuation 2 puffs inhalation Q6H PRN 6.7 grams 0RF Sh ortness Of Breath Coding Level of Care Code Est Pt Level 3 (90023) Diagnoses Bilateral lower extremity pain M79.604; M79.605
[2025-10-25 11:44] VITALS: BP 110/55; PULSE 80; TEMP 36.6; O2SAT 96; BMI 36.5
[2025-10-25 11:52] VITALS: BP 111/61
== END 2025-10-25 12:28 | disposition home or self-care (01) ==
LOC: HO.HMCWIS 11:27
PROVIDERS: PCP Student in an Organized Health Care Education/Training Program; Visit Provider Physician Assistant
DX: M79.604 Pain in right leg (principal); M79.605 Pain in left leg

== ENCOUNTER → 2025-10-25 11:27 | Outpatient (BNVA) | payer MEDICARE, MEDICAID, SELFPAY | PROVIDERS: PCP Student in an Organized Health Care Education/Training Program; Visit Provider Physician Assistant | DX: M79.604 Pain in right leg (principal); M79.605 Pain in left leg; R60.0 Localized edema | CPT/HCPCS: 99212 ==

== ENCOUNTER 2025-10-26 08:20 | Outpatient (AMB) | payer MEDICARE, MEDICAID, SELFPAY ==
--- NOTE | 2025-10-26 08:21 | A.OFFVIS_ITS ---
Vital Signs 10/26/25 08:22 Height 5 ft 2.5 in Weight 200 lb 2 oz BMI 36.0 BP 118/82 Blood Pressure Location Rt brachial Position Sitting Pulse 80 Pulse Source Pulse Oximeter Pulse Oximetry (%) 97 Oxygen Delivery Method Room Air Intake Visit Reasons: INP-Multiple sclerosis Intake Note: Multiple Sclerosis Registered Medical Transcriptionist Required: No Accompanied by: Self / Same As Patient Allergies sulfamethoxazole (From Bactrim) Allergy (Verified 10/26/25 08:22) Anaphylaxis trimethoprim (From Bactrim) Allergy (Verified 10/26/25 08:22) Anaphylaxis Medication List - Last Reconciled 10/26/25 by Laure Yoon MD albuterol sulfate 90 mcg/actuation 2 puffs inhalation Q6H PRN ammonium lactate 5% (Lac-Hydrin Five) 1 appl topical BID aripiprazole 5 mg PO DAILY bupropion HCl 100 mg PO TID gabapentin 100 mg PO TID guanfacine ER 1 mg PO DAILY hydroxyzine pamoate 50 mg PO TID melatonin 5 mg PO BEDTIME PRN trazodone 100 mg PO BEDTIME triamcinolone acetonide 0.1% 1 appl topical DAILY zolpidem 10 mg PO BEDTIME PRN HPI Comments Details: 65y/o female comes for further management of possible Multiple Sclerosis she was diagnosed with MS in 2004 - diagnosed by Dr.Blair Jannie Lopez. she was later seen at [facility]. she was treated with Rebiff for 2-3 years . she is not sure why the medicine was stopped. she does not remember her presenting symptoms. she says her memory is not good. she denies double vision, loss of vision, denies dysarthria, dysphagia, vertigo, weakness or numbness. she has some gait difficulty due to edema . she denies falls. she has trouble falling asleep and staying asleep. she denies snoring but has excessive daytime sleepiness. she reports cognitive difficulties - mainly short term memory and has been worsening the past 2 years.she lives at a residential house - independant in all ADLs. she used to be a social drinker . she used to smoke CRACK - quit 1 year ago she smokes cigarettes 10/day for many years. [facility] Medical History (Updated 10/26/25 @ 08:49 by Laure Yoon MD) Cognitive change Excessive daytime sleepiness Insomnia Normal neurological exam Bilateral lower extremity pain ADHD (attention deficit hyperactivity disorder) Chronic anemia Crack cocaine use MDD (major depressive disorder), recurrent episode, moderate SANDI (generalized anxiety disorder) Suicidal ideation Family History Father No problems noted. Mother Arthritis Vertigo Social History Household Members: None Housing: Other Do you presently have visiting nurse or other home services: No Alcohol intake: current Alcohol intake frequency: holidays/special occasions only Patient Tobacco Use Status: Current everyday Tobacco user Cigarettes Per Day: 10 e-Cigarette/Vaping Use: Currently Using Second Hand Smoke Exposure: No Substance Use Type: Crack/Cocaine service: No Current occupational status: retired Sexual orientation: Straight/Heterosexual Cognitive needs: No Hearing needs: No Vision needs: Yes (reading) Physical Exam Vital Signs: Last Vital Signs Pulse 80 10/26/25 08:22 BP 118/82 10/26/25 08:22 Pulse Ox 97 10/26/25 08:22 Oxygen Delivery Method Room Air 10/26/25 08:22 BMI result Body Mass Index 36.0 Const General: cooperative, healthy appearing, comfortable and no acute distress Nutritional Appearance: obese Orientation/consciousness: patient oriented x3 Eyes Pupils: Equal, round and reactive pupils present Neuro General: patient oriented x3, gait normal, tone normal, moves all extremities and no focal motor deficits Cranial nerves: Yes Facial sensation intact/muscles of mastication intact, Yes Equal, round and reactive pupils present, Yes Bilaterally intact EOM present, Yes Nystagmus not present, Yes Normal facial strength present, Yes Midline tongue present and Yes Ability to bilaterally elevate shoulders present Cognition (Neuro): normal cognition Gait exam (Neuro): Normal gait present Motor exam (neuro): 5/5 motor strength present throughout and Normal motor muscle tone present throughout Deep tendon reflexes (DTR's): Right triceps reflex intensity grade: 1+, Left triceps reflex intensity grade: 1+, Rt Biceps (C5, C6): 1+, Left biceps reflex intensity grade: 1+, Right brachioradialis reflex intensity grade: 1+, Left brachioradialis reflex intensity grade: 1+, Right patellar reflex intensity grade: 1+ and Left patellar reflex intensity grade: 1+ Coordination: [id number] test normal Orientation What is the (year) (season) (date) (day) (month)?: year, season, date, day and month Where are we (state) (county) (town or city) (hospital) (floor)?: state, town or city, hospital/clinic and floor Registration Name of 3 unrelated objects clearly and slowly, then ask patient to repeat all 3 of them. (1st repeat determines score. Make sure they can repeat all three): object 1, object 2 and object 3 Attention & Calculation (CHOOSE ONE) Spell WORLD backwards (DLROW): 5 letters Recall Ask patient to repeat the 3 items from question #3.: object 2 Language Show patient a wristwatch & ask what it is. Repeat for pencil.: watch and pencil Ask the patient to repeat the phrase 'No ifs, ands, or buts' after you.: correct Ask the patient to 'take a piece of paper with their right hand' 'fold paper in half' 'place paper on floor': take paper in right hand, fold paper in half and place paper on floor Print the sentence 'CLOSE YOUR EYES' on a piece. If patient actually closes eyes then score.: followed written direction Give patient a blank piece of paper & ask to write a sentence. Score if it contains a noun & verb.: sentence contains subject and verb Ask patient to copy figure of intersecting pentagons exactly. Score if all 10 angles & 2 intersects are included.: all 10 angles present & 2 are intersected Score Score: 27 Assessment & Plan Assessment & Plan (1) Normal neurological exam: Comment: reported h/o Multiple sclerosis diagnosed 20 years ago - not on treatment Code(s): Z00.00 - Encounter for general adult medical examination without abnormal findings Category: Medical (2) Insomnia: Comment: sleep onset Code(s): G47.00 - Insomnia, unspecified Category: Medical (3) Excessive daytime sleepiness: Code(s): G47.19 - Other hypersomnia Category: Medical (4) Cognitive change: Comment: did well on MMSE - ? sleep related ? vascular? mood related Code(s): R41.89 - Other symptoms and signs involving cognitive functions and awareness Category: Medical Plan MRI Brain with and without sandi to assess any evidence of MS and any changes causing cognitive difficulties Home sleep test - to r/o sleep apnea TSH and Vit B 12 normal Orders: Orders MR head/brain wo/w con Today R41.89 - Other symptoms and signs involving cognitive functions and awareness, Z00.00 - Encounter for general adult medical examination without abnormal findings RT home sleep study Today G47.00 - Insomnia, unspecified, G47.19 - Other hypersomnia, R41.89 - Other symptoms and signs involving cognitive functions and awareness, Z00.00 - Encounter for general adult medical examination without abnormal findings Medications: New cyanocobalamin (vitamin B-12) (Vitamin B-12) 100 mcg PO DAILY 90 tabs 6RF Coding Level of Care Code New Pt Level 4 (35177) Add On Problem Visit Only Diagnoses Normal neurological exam Z00.00 Insomnia G47.00 Excessive daytime sleepiness G47.19 Cognitive change R41.89
[2025-10-26 08:22] VITALS: BP 118/82; PULSE 80; O2SAT 97; BMI 36.0
== END 2025-10-26 08:57 | disposition home or self-care (01) ==
LOC: HO.HSMS 08:21
PROVIDERS: PCP Student in an Organized Health Care Education/Training Program; Visit Provider Psychiatry & Neurology Neurology
DX: Z00.00 Encounter for general adult medical examination without abnormal findings (principal); G47.00 Insomnia, unspecified; G47.19 Other hypersomnia; R41.89 Other symptoms and signs involving cognitive functions and awareness
CPT/HCPCS: 99204; G2211

== ENCOUNTER → 2025-10-26 08:20 | Outpatient (BNVA) | payer MEDICARE, MEDICAID, SELFPAY | PROVIDERS: PCP Student in an Organized Health Care Education/Training Program; Visit Provider Psychiatry & Neurology Neurology | DX: G47.00 Insomnia, unspecified (principal); G47.19 Other hypersomnia; R41.89 Other symptoms and signs involving cognitive functions and awareness | CPT/HCPCS: 99202 ==

== ENCOUNTER → 2025-11-02 13:07 | Outpatient (REF) | payer MEDICARE, MEDICAID, SELFPAY ==
--- OUTSIDE RECORDS SUMMARY | 2025-11-02 17:13 | XMS_ITS | Clinical Summary ---
Author Organization [employer] Address [address] [place] [address] Care Team Providers Care Medical Orderly Name Role Phone Unavailable Primary Care Provider [...]
--- OUTSIDE RECORDS SUMMARY | 2025-11-02 17:13 | XMS_ITS | Clinical Summary ---
Author Organization [facility] [address] it[address] Address [address] [place] [address] Care Team Providers Care Cow Rider Name Role Phone Arden Odell DO Primary Care Provider [phone] Social History Tobacco Use Types Packs/Day Years [...] age to complete this topic Care Teams Cow Rider Relationship Specialty Start Date End Date Arden Odell DO [address] [place] [id number] PCP - General Internal Medicine 05/28/22
== END ==
LOC: HO.SL 13:07
PROVIDERS: PCP Student in an Organized Health Care Education/Training Program; Visit Provider Psychiatry & Neurology Neurology
DX: G47.19 Other hypersomnia (principal)
CPT/HCPCS: 95806

== ENCOUNTER 2025-11-03 16:06 | Outpatient (AMB) | payer MEDICARE, MEDICAID, SELFPAY ==
--- NOTE | 2025-11-03 16:10 | A.OFFPC_ITS ---
Vital Signs 11/03/25 16:14 Height 5 ft 2.5 in Weight 199 lb BMI 35.8 BP 121/69 Blood Pressure Location Lt brachial Position Sitting Respiration 16 Pulse 85 Pulse Source Pulse Oximeter Temp 98.3 F Temp Source Oral Pulse Oximetry (%) 99 Oxygen Delivery Method Room Air Intake Visit Reasons: Swollen legs Intake Note: Patient present for swollen legs, it's been happening foe about 10 days. Patient does feel better today. [employer] Professional Required: No Accompanied by: Self / Same As Patient Allergies sulfamethoxazole (From Bactrim) Allergy (Verified 11/03/25 16:13) Anaphylaxis trimethoprim (From Bactrim) Allergy (Verified 11/03/25 16:13) Anaphylaxis Medication List - Last Reconciled 11/04/25 by Beni Woods MD albuterol sulfate 90 mcg/actuation 2 puffs inhalation Q6H PRN ammonium lactate 5% (Lac-Hydrin Five) 1 appl topical BID aripiprazole 5 mg PO DAILY ascorbic acid (vitamin C) 500 mg PO DAILY bupropion HCl 100 mg PO TID cyanocobalamin (vitamin B-12) (Vitamin B-12) 100 mcg PO DAILY ferrous sulfate 325 mg PO DAILY furosemide (Lasix) 40 mg PO DAILY gabapentin 100 mg PO TID guanfacine ER 1 mg PO DAILY hydroxyzine pamoate 50 mg PO TID melatonin 5 mg PO BEDTIME PRN polyethylene glycol 3350 (Miralax) 17 grams PO DAILY trazodone 100 mg PO BEDTIME triamcinolone acetonide 0.1% 1 appl topical DAILY zolpidem 10 mg PO BEDTIME PRN Tobacco use date assessed: 08/08/25 Dental Screening Dental Screen Date: 08/08/25 HPI HPI Comments History of Present Illness Details History of Present Illness The patient is a 65 year old female presenting with a chief complaint of bilateral leg swelling. Bilateral leg edema: The patient reports the onset of bilateral leg swelling approximately two weeks ago, a symptom she has never experienced before. She describes her legs as feeling tight, as if the skin might rip open, and notes the edema is hard and non-pitting. She visited a walk-in clinic where blood tests revealed an elevated pro-BNP level. She denies any history of heart issues but has a significant smoking history of 5-6 cigarettes per day for approximately 50 years and a past history of crack/cocaine abd etoh use. Anemia: Recent lab work from 10/19 confirmed the patient is anemic. She has not been taking prescribed iron supplements due to a lack of transportation to pick them up from the pharmacy. Psychiatric disorders: The patient has a history of major depression, anxiety, and ADHD, for which she takes multiple medications including bupropion, gabapentin, guanfacine, hydroxyzine, and trazodone. She previously received psychiatric care from providers at [facility] but currently does not have a psychiatrist. Her classification case manager has reportedly submitted a request for a new psychiatrist. Surgical History: - History of gastric bypass Medications: - Albuterol inhaler - Bupropion (Wellbutrin) 100 mg twice da ame for depression/anxiety - Gabapentin - Guanfacine for ADHD - Hydroxyzine - Trazodone for depression/anxiety - Ambien (currently out of medication)- Dr. Woods will not refill Social History: - Tobacco Use: The patient reports smoki ng 5-6 cigarettes per day and has been smoking since she was 14 years old, for about 50 years. - Substance Use History: Medical records indicate a history of alcohol and cocaine use. - Transportation: The patient reports la ck of access to a vehicle, requiring medication delivery and use of [employer] transportation services for appointments. - Support System: The patient has a classification case manager involved in her care. Family History: - The patient's children's father was eriberto rios. - Her children have ADHD. Diagnostic Results: - Labs (from 10/19): Revealed anemia, pr ediabetes, slightly elevated alkaline phosphatase, and an elevated pro-BNP level. - Sleep Study: The patient returned her home sleep apnea test box today; results are pending. - Leg Vascular Study: A prior study was reportedly normal, though the patient does not recall the results. Past Medical History - Multiple sclerosis (no longer on Rebif ) - Fibromyalgia - Migraines - Major depressive disorder - Anxiety - Attention-deficit/hyperactivity disord er - History of alcohol use - History of cocaine use - Gastroesophageal reflux disease (GERD) - Anemia - Chronic pain - Prediabetes - Allergy to sulfa drugs (Bactrim) Health Maintenance - The patient recently completed a home sleep apnea study; results are pending. - Tobacco use was discussed; the patient notes she has reduced her intake. - A referral for outpatient psychiatric care has been placed for medication management. [facility] Medical History (Updated 11/04/25 @ 09:40 by Beni Woods MD) Class 2 obesity Dependent personality disorder GERD (gastroesophageal reflux disease) Migraine ADD (attention deficit disorder) Cocaine abuse Alcohol use disorder MDD (major depressive disorder) Fibromyalgia Multiple sclerosis Anxiety and depression Elevated brain natriuretic peptide (BNP) level Cognitive change Excessive daytime sleepiness Insomnia Normal neurological exam Bilateral lower extremity pain ADHD (attention deficit hyperactivity disorder) Chronic anemia Crack cocaine use MDD (major depressive disorder), recurrent episode, moderate JOSE (generalized anxiety disorder) Suicidal ideation Family History Father No problems noted. Mother Arthritis Vertigo Social History Household Members: None Housing: Other Do you presently have visiting nurse or other home services: No Alcohol intake: current Alcohol intake frequency: holidays/special occasions only Patient Tobacco Use Status: Current everyday Tobacco user Cigarettes Per Day: 10 e-Cigarette/Vaping Use: Currently Using Second Hand Smoke Exposure: No Substance Use Type: Crack/Cocaine service: No Current occupational status: retired Sexual orientation: Straight/Heterosexual Cognitive needs: No Hearing needs: No Vision needs: Yes (reading) Questionnaire Thrive Questionnaire Date Thrive assessed: 08/08/25 JOSE-7 AMB Questionnaire JOSE-7 Date JOSE - 7 assessed: 08/08/25 Source: Developed by Drs. Feliberto Guardado, Geraldine Bustos, Sherwin Steel and colleagues, with an educational diana from [employer]. Review of Systems Narrative Review of Systems - Lower Extremities: Reports bilateral leg swelling for the past two weeks, associated with a sensation of tightness. - Respiratory: Denies difficulty breathing. - Cardiovascular: Denies any known history of heart issues. - Psychiatric: Reports symptoms of depression, anxiety, and ADHD. - Constitutional: Reports feeling crappy. - Skin: Denies jaundice. 10-point ROS reviewed and negative except as noted in HPI Physical exam (Primary Care) Vital Signs: Last Vital Signs Temp 98.3 F 11/03/25 16:14 Pulse 85 11/03/25 16:14 Resp 16 11/03/25 16:14 BP 121/69 11/03/25 16:14 Pulse Ox 99 11/03/25 16:14 Oxygen Delivery Method Room Air 11/03/25 16:14 BMI result Body Mass Index 35.8 Tobacco/Smoking Status: Tobacco use Status Tobacco use date assessed 08/08/25 11/03/25 16:12 Patient Tobacco Use Status Current everyday Tobacco 11/03/25 16:12 e-Cigarette/Vaping Use Currently Using 11/03/25 16:12 Thrive Assessment: Date of Thrive Assessment Date Thrive assessed 08/08/25 11/03/25 16:12 Narrative Physical Exam General: Well-appearing, in no acute distress. Vital signs: Within normal limits. HEENT: Normocephalic, atraumatic. PERRLA, EOMI. Conjunctiva clear, sclera anicteric. Oropharynx clear, mucous membranes moist. TMs intact bilaterally. Neck: Supple, no lymphadenopathy, no thyromegaly, no JVD or carotid bruits. Cardiovascular: RRR, normal S1/S2, no murmurs, rubs, or gallops. Peripheral pulses 2+ and symmetric. No edema noted, but patient reports swelling in legs, described as non-pitting and hard. Respiratory: Lungs clear to auscultation bilaterally, no wheezes, rales, or rhonchi. Normal effort. No difficulty breathing reported. Abdomen: Soft, non-tender, non-distended. Normoactive bowel sounds. No hepatosplenomegaly, no masses. MSK: Full range of motion, no joint swelling or deformity. Normal gait. Skin: Warm, dry, intact. No rashes, lesions, or pallor. Patient reports legs feel tight, as if skin might rip open.non pitting edema of le appreciated Neuro: Alert and oriented x3. Cranial nerves II-XII intact. Strength 5/5 throughout. Sensation intact. Reflexes 2+ symmetric. Normal coordination and gait. Psych: Appropriate mood and affect. Normal judgment and insight. Patient reports history of major depression and anxiety, taking medications including trazodone, melatonin, and bupropion. ADHD also noted, taking guanfacine. Coding Level of Care Code Est Pt Level 3 (66096) Add On Problem Visit Only Diagnoses Class 2 obesity E66.812 Elevated brain natriuretic peptide (BNP) level R79.89 Bilateral lower extremity edema R60.0 Multiple sclerosis G35.D Bilateral lower extremity pain M79.604; M79.605 Fibromyalgia M79.7 Cocaine abuse F14.10 Alcohol use disorder F10.90 Assessment & Plan Assessment & Plan (1) Class 2 obesity: Code(s): E66.812 - Obesity, class 2 Category: Medical (2) Elevated brain natriuretic peptide (BNP) level: Code(s): R79.89 - Other specified abnormal findings of blood chemistry Category: Medical (3) Bilateral lower extremity edema: Code(s): R60.0 - Localized edema Category: Medical (4) Multiple sclerosis: Code(s): G35.D - Multiple sclerosis, unspecified Category: Medical (5) Bilateral lower extremity pain: Code(s): M79.604 - Pain in right leg; M79.605 - Pain in left leg Category: Medical (6) Fibromyalgia: Code(s): M79.7 - Fibromyalgia Category: Medical (7) Cocaine abuse: Code(s): F14.10 - Cocaine abuse, uncomplicated Category: Medical (8) Alcohol use disorder: Code(s): F10.90 - Alcohol use, unspecified, uncomplicated Category: Medical Plan Consent The plan of care, including a referral for an echocardiogram, initiation of diuretic and iron therapy, and a referral to psychiatry, was discussed with the patient. She understood the rationale and verbally consented to the proposed plan. Patient was informed and verbally consented to the use of an ambient scribe for clinic note documentation during this visit. Plan 1. Bilateral Leg Edema - The patient's new onset edema, in conjunction with an elevated pro-BNP and significant cardiac risk factors including a long smoking history and past crack/cocaine/etoh use, raises high suspicion for congestive heart failure. - Other differential diagnoses such as venous insufficiency and liver disease are less likely given a reportedly normal prior leg study and absence of clinical signs of liver failure. - An echocardiogram has been ordered to evaluate cardiac function. - Furosemide 40 mg daily has been prescribed for 14 days for diuresis. - The patient was advised to use compression stockings as tolerated to help reduce swelling. - Follow-up is scheduled in two weeks to assess her response to treatment. 2. Anemia - The patient was noted to be anemic based on recent labs but has not been taking iron due to transportation barriers. - A prescription for ferrous sulfate and vitamin C will be sent to a delivery pharmacy. - The patient was instructed to take vitamin C before the iron on an empty stomach to improve absorption and was counseled on potential side effects like constipation and dark stools. - MiraLAX was also prescribed to manage potential constipation. 3. Psychiatric Disorders Management - The patient is on multiple psychotropic medications for depression, anxiety, and ADHD but currently lacks a psychiatrist for management. - A referral has been placed for outpatient psychiatric services at [facility] to establish care and ensure appropriate medication management. Discussion Notes I discussed with the patient my concern that her new leg swelling, in the context of her elevated Pro-BNP and significant cardiac risk factors, is likely related to her heart. I explained the need for an echocardiogram to assess her heart function and the rationale for starting a diuretic, furosemide, to help remove excess fluid. We also reviewed her recent lab results showing anemia, and I explained the plan to prescribe iron with vitamin C and MiraLAX, detailing how to take them for best absorption and how to manage side effects. Additionally, I emphasized the importance of re-establishing care with a psychiatrist for management of her complex psychiatric medications and informed her that a referral has been placed. The patient was agreeable to the plan, including the use of compression stockings and a follow-up visit in two weeks to monitor her progress. Patient Instructions - Take one furosemide 40 mg pill each day to help reduce the swelling in your legs. - An order has been placed for an echocardiogram (an ultrasound of your heart). The hospital will call you to schedule this. - To treat your anemia, take the vitamin C pill first, followed immediately by the iron pill. Take them either one hour before a meal or two hours after a meal. - The iron pills may cause constipation and may make your stool look dark, which is normal. Drink plenty of water. You can use the prescribed MiraLAX if you become constipated. - Wear your compression stockings for as long as you can tolerate them each day to help with the swelling. - We have sent a referral for you to see a psychiatrist for your medications. They will contact you to set up an appointment. - All new prescriptions will be sent to [facility], which delivers. - Please return to the clinic for a follow-up appointment in two weeks. Medical Decision Making The patient is a 65-year-old female with a complex medical and psychiatric history who presents with new-onset bilateral lower extremity edema. Her recent labs showing an elevated pro-BNP, combined with her significant cardiac risk factors including a 50-year smoking history and past crack/cocaine/etoh use, places congestive heart failure high on the differential. Physical exam findings of hard, non-pitting edema without JVD or hepatomegaly are noted. While other causes like venous insufficiency or liver disease were considered, they are less likely given the clinical picture and history of a normal prior leg study. The plan is to further evaluate for cardiac etiology with an echocardiogram. In the interim, she will be started on furosemide 40 mg daily for symptomatic relief. She is also advised to use compression stockings. The patient was also found to be anemic and non-adherent with iron due to transportation issues; this has been addressed by prescribing ferrous sulfate, vitamin C, and MiraLAX to a pharmacy that delivers, with clear instructions on administration and side effects. Given her numerous psychotropic medications and lack of current psychiatric oversight, a referral to outpatient psychiatry is critical for safe and effective management of her depression, anxiety, and ADHD. She will follow up in two weeks to assess her clinical response to the diuretic and to review the overall plan. Total Time Statement 20 min Total time spent caring for the patient today includes pre-visit chart review, documentation, review of laboratory and diagnostic imaging results, medication reconciliation, medically necessary evaluation, counseling on diagnoses, care coordination, ordering appropriate tests and medications, review of tests performed by other providers, reporting test results to the patient, and communication with other healthcare providers. Orders: Orders CA echo transthoracic complete 11/03/25 M79.604 - Pain in right leg, M79.605 - Pain in left leg, R79.89 - Other specified abnormal findings of blood chemistry Referrals Psychiatry Referral F32.A - Depression, unspecified, F41.9 - Anxiety disorder, unspecified, F90.9 - Attention-deficit hyperactivity disorder, unspecified type Psychiatry Outpatient Consultation Service F32.A - Depression, unspecified, F41.9 - Anxiety disorder, unspecified, F90.9 - Attention-deficit hyperactivity disorder, unspecified type Medications: New polyethylene glycol 3350 (Miralax) 17 grams PO DAILY 238 grams 0RF furosemide (Lasix) 40 mg PO DAILY 14 tabs 0RF ascorbic acid (vitamin C) 500 mg PO DAILY 90 tabs 0RF ferrous sulfate 325 mg PO DAILY 90 tabs 0RF
[2025-11-03 16:14] VITALS: BP 121/69; PULSE 85; RESP 16; TEMP 36.8; O2SAT 99; BMI 35.8
--- OUTSIDE RECORDS SUMMARY | 2025-11-03 16:45 | XMS_ITS | Clinical Summary ---
Author Organization [employer] Address [address] [place] [address] Care Team Providers Care Soaking Pit Operator Name Role Phone Unavailable Primary Care [...]
--- OUTSIDE RECORDS SUMMARY | 2025-11-03 16:45 | XMS_ITS | Clinical Summary ---
Author Organization [facility] ity Address [address] [place] [address] Care Team Providers Care Load Dispatcher Local Name Role Phone Arden Odell DO Primary Care Provider [phone] Social History Tobacco Use Types Packs/Day Years [...] age to complete this topic Care Teams Load Dispatcher Local Relationship Specialty Start Date End Date Arden Odell DO [address] [place] [id number] PCP - General Internal Medicine 05/28/22
== END 2025-11-03 16:45 | disposition home or self-care (01) ==
LOC: HO.HMCFMS 16:06
PROVIDERS: PCP Student in an Organized Health Care Education/Training Program; Visit Provider Student in an Organized Health Care Education/Training Program
DX: E66.812 Obesity, class 2 (principal); R79.89 Other specified abnormal findings of blood chemistry; R60.0 Localized edema; G35.D Multiple sclerosis, unspecified; M79.604 Pain in right leg; M79.605 Pain in left leg; M79.7 Fibromyalgia; F14.10 Cocaine abuse, uncomplicated; F10.90 Alcohol use, unspecified, uncomplicated

== ENCOUNTER → 2025-11-03 16:06 | Outpatient (BNVA) | payer MEDICARE, MEDICAID, SELFPAY | PROVIDERS: PCP Student in an Organized Health Care Education/Training Program; Visit Provider Student in an Organized Health Care Education/Training Program | DX: R60.0 Localized edema (principal); E66.812 Obesity, class 2; R79.89 Other specified abnormal findings of blood chemistry; G35.D Multiple sclerosis, unspecified; M79.604 Pain in right leg; M79.605 Pain in left leg; M79.7 Fibromyalgia; F14.10 Cocaine abuse, uncomplicated; F10.90 Alcohol use, unspecified, uncomplicated | CPT/HCPCS: 99212 ==